=== PATIENT | male | born 1985 ===

== ENCOUNTER 2016-12-29 04:46 | Inpatient (IN) | payer OTHER ==
[2016-12-29 05:18] VITALS: BMI 23.8
--- NOTE | 2016-12-29 05:22 | ED PDOC ---
Arrival/HPI - General Time Seen by Provider: 12/29/16 05:20 Historian: Patient - History of Present Illness Narrative History of Present Illness (Text): 12/29/16 05:21 Thong Agrawal is a 31 year old male, whose past medical history includes alcohol abuse, who presents to the ED brought in by EMS accompanied by family status post seizure today. Relative states patient had a witnessed seizure at home 1 hour prior to arrival. Patient admits to drinking alcohol yesterday evening. Family note patient has had seizures in the past. Patient states he currently has a headache. Patient denies any fever, chills, chest pain, shortness of breath, abdominal pain, nausea, vomiting, diarrhea, urinary symptoms, back pain , neck pain, dizziness, vision changes, or any other complaints. Time/Duration: Other (tonight) Symptom Onset: Gradual Symptom Course: Unchanged Activities at Onset: Rest, Light Context: Home Past Medical History - Provider Review Nursing Documentation Reviewed: Yes Family/Social History - Physician Review Nursing Documentation Reviewed: Yes Family/Social History: No Known Family HX Allergies/Home Meds Allergies/Adverse Reactions: Allergies No Known Allergies Allergy (Unverified 12/29/16 05:21) Home Medications: Home Meds Medication Instructions Recorded Confirmed No Known Home Med 12/29/16 12/29/16 Review of Systems - Physician Review All systems were reviewed & negative as marked: Yes - Review of Systems Constitutional: Normal. absent: Fevers Eyes: Normal ENT: Normal Respiratory: Normal. absent: SOB, Cough Cardiovascular: Normal. absent: Chest Pain Gastrointestinal: Normal. absent: Abdominal Pain, Diarrhea, Nausea, Vomiting Genitourinary Male: Normal. absent: Dysuria, Frequency, Hematuria, Urinary Output Changes Musculoskeletal: Normal. absent: Back Pain, Neck Pain Skin: Normal. absent: Rash Neurological: Headache, Seizure. absent: Dizziness Endocrine: Normal Hemo/Lymphatic: Normal Psychiatric: Normal Physical Exam Vital Signs Reviewed: Yes Vital Signs Temp Pulse Resp BP Pulse Ox 12/29/16 08:11 103 H 18 142/66 97 12/29/16 06:35 107 H 18 138/88 97 12/29/16 06:20 104 H 18 139/66 96 12/29/16 06:05 107 H 18 144/92 H 99 12/29/16 05:50 102 H 18 140/79 98 12/29/16 04:46 98.6 F 106 H 18 151/102 H 99 Temperature: Afebrile Blood Pressure: Hypertensive Pulse: Regular Respiratory Rate: Normal Appearance: Positive for: Well-Appearing, Non-Toxic, Comfortable Pain Distress: None Mental Status: Positive for: Alert and Oriented X 3 - Systems Exam Head: Present: Atraumatic, Normocephalic Pupils: Present: PERRL Extroacular Muscles: Present: EOMI Conjunctiva: Present: Normal Mouth: Present: Moist Mucous Membranes Neck: Present: Normal Range of Motion Respiratory/Chest: Present: Clear to Auscultation, Good Air Exchange. No: Respiratory Distress, Accessory Muscle Use Cardiovascular: Present: Regular Rate and Rhythm, Normal S1, S2. No: Murmurs Abdomen: Present: Normal Bowel Sounds. No: Tenderness, Distention, Peritoneal Signs Back: Present: Normal Inspection Upper Extremity: Present: Normal Inspection. No: Cyanosis, Edema Lower Extremity: Present: Normal Inspection. No: Edema Neurological: Present: GCS=15, CN II-XII Intact, Speech Normal Skin: Present: Warm, Dry, Normal Color. 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 Plan: -- CT Head w/o contrast -- EKG -- Labs, alcohol level -- Urinalysis -- Ativan -- Reassess and disposition Progress Notes: Reviewed EKG, sinus tachycardia at [address]-segment elevations or depressions, no T-wave inversions, normal intervals. 12/31/16 19:38 case d/w dr farley from [facility] will accept case - Critical Care Critical Care Minutes: 30 minutes (management of electrolyte disorder) - Lab Interpretations Microbiology Results: Microbiology Results 12/29/16 07:14 Blood Blood Culture - Preliminary NO GROWTH AFTER 48 HOURS 12/29/16 07:00 Blood Blood Culture - Preliminary NO GROWTH AFTER 48 HOURS Lab Results: 12/29/16 05:30 12/29/16 05:30 Lab Results 12/29/16 07:14: PT 12.6 H, INR 1.17 H, APTT 28.7 12/29/16 06:30: pO2 232 H, VBG pH 7.50 H, VBG pCO2 29.0 L, VBG HCO3 22.6, VBG Total CO2 23.5, VBG O2 Sat (Calc) 99.0 H, VBG Base Excess 0.4, VBG Potassium 2.4 L*, Glucose 117 H, Lactate 8.0 H*, FiO2 21.0, Sodium 113.0 L*, Chloride 71.0 L, Venous Blood Potassium 2.4 L* 12/29/16 05:30: Hepatitis A IgM Ab Negative, Hep Bs Antigen Negative, Hep B Core IgM Ab Negative, Hepatitis C Antibody Negative 12/29/16 05:30: Procalcitonin 0.16 L 12/29/16 05:30: Serum Osmolality 240 L, TSH 3rd Generation 1.84 12/29/16 05:30: Sodium 113 L*, Potassium 2.3 L*, Chloride 67 L, Carbon Dioxide 15 L, Anion Gap 33 H, BUN 12, Creatinine 0.8, Est GFR ( Amer) > 60, Est GFR (Non-Af Amer) > 60, Random Glucose 149 H, Uric Acid 14.5 H, Calcium 7.8 L, Phosphorus 4.4, Magnesium 3.0 H, NT-Pro-B Natriuret Pep 299, Cortisol AM Sample 22.1 12/29/16 05:30: Alcohol, Quantitative < 10 12/29/16 05:30: Sodium 112 L*, Potassium 2.2 L*, Chloride 67 L*, Carbon Dioxide 14 L, Anion Gap 33 H, BUN 12, Creatinine 0.9, Est GFR ( Amer) > 60, Est GFR (Non-Af Amer) > 60, Random Glucose 152 H, Calcium 7.7 L, Total Bilirubin 1.2 , AST 143 H, ALT 101 H, Alkaline Phosphatase 85, Total Protein 8.4 H, Albumin 5.4 H, Globulin 3.0, Albumin/Globulin Ratio 1.8 12/29/16 05:30: WBC 20.7 H, RBC 4.73, Hgb 14.7, Hct 37.7 L, MCV 79.7 L, MCH 31.1 , MCHC 39.0 H, RDW 12.1, Plt Count 154, MPV 9.9, Gran % 85.8 H, Lymph % (Auto) 7.7 L, [place] % (Auto) 6.5 H, Eos % (Auto) 0.0 L, Baso % (Auto) 0.0, Gran # 17.80 H, Lymph # 1.6, [place] # 1.3 H, Eos # 0.0, Baso # 0.00 I have reviewed the lab results: Yes - RAD Interpretation Radiology Orders: 12/29/16 05:21 HEAD W/O CONTRAST [CT] Stat 12/29/16 05:56 CHEST ONE VIEW [RAD] Stat - EKG Interpretation Interpreted by ED Physician: Yes Type: 12 lead EKG - Medication Orders Current Medication Orders: Calcium Carbonate (Caltrate) 600 mg PO ONCE ONE Stop: 12/31/16 20:01 Folic Acid (Folic Acid) 1 mg PO DAILY [facility] Last Admin: 12/31/16 13:46 Dose: 1 mg Octreotide Acetate 1,250 mcg/ (Dextrose) 252.5 mls @ 5.05 mls/hr IV .Q24H JESUS; 25 MCG/HR PRN Reason: Protocol Last Admin: 12/30/16 21:04 Dose: 25 mcg/hr, 5.05 mls/hr Pantoprazole Sodium (Protonix 40mg Ivpb) 40 mg in 100 mls @ 20 mls/hr IVPB .Q5H JESUS Last Admin: 12/31/16 17:10 Dose: 20 mls/hr Levetiracetam (Keppra 500mg Ivpb) 500 mg in 100 mls @ 460 mls/hr IVPB Q12 JESUS Last Admin: 12/31/16 11:07 Dose: 460 mls/hr Dexmedetomidine HCl (Precedex 4 Mcg/Ml (100 Ml)) 400 mcg in 100 mls @ 10.319 mls/hr IV .Q9H42M PRN; Protocol; 0.7 MCG/KG/HR PRN Reason: Agitation Last Admin: 12/31/16 17:17 Dose: 0.2 mcg/kg/hr, 2.948 mls/hr Calcium Gluconate 1,000 mg/ (Dextrose) 110 mls @ 110 mls/hr IVPB DAILY JESUS Stop: 01/01/17 10:59 Last Admin: 12/31/16 18:06 Dose: 110 mls/hr Sodium Chloride (Sodium Chloride 0.45%) 1,000 mls @ 500 mls/hr IV .Q2H JESUS Stop: 12/31/16 23:00 Sodium Chloride (Sodium Chloride 0.9%) 1,000 mls @ 250 mls/hr IV .Q4H JESUS Lorazepam (Ativan) 2 mg IVP Q2H PRN; Protocol PRN Reason: Seizure activity Last Admin: 12/31/16 01:43 Dose: 2 mg Re-Assess: Reassess Psych Meds Document 12/31/16 02:13 MKN (Rec: 12/31/16 02:26 MKN [facility] [id number]) Reassess Psych Med Ineffective-LIP notifed Multivitamins/Minerals (Therapeutic-M Tab) 1 tab PO DAILY [facility] Last Admin: 12/31/16 13:45 Dose: 1 tab Thiamine HCl (Vitamin B1 Tab) 100 mg PO DAILY JESUS Thiamine HCl (Vitamin B1 Inj) 100 mg IV DAILY [facility] Last Admin: 12/31/16 11:07 Dose: 100 mg Discontinued Medications Calcium Carbonate (Caltrate) 600 mg PO ONCE ONE Stop: 12/31/16 13:35 Last Admin: 12/31/16 13:45 Dose: 600 mg Calcium Carbonate (Caltrate) 600 mg PO ONCE ONE Stop: 12/31/16 16:32 Last Admin: 12/31/16 17:06 Dose: 600 mg Desmopressin Acetate (Ddavp) 2 mcg SC ONCE ONE Stop: 12/29/16 13:46 Last Admin: 12/29/16 14:45 Dose: 2 mcg Desmopressin Acetate (Ddavp) 2 mcg SC ONCE ONE Stop: 12/31/16 07:18 Last Admin: 12/31/16 08:37 Dose: 2 mcg Folic Acid (Folic Acid) 1 mg IVP DAILY [facility] Last Admin: 12/30/16 10:24 Dose: 1 mg Gadodiamide (Omniscan No Safepak) Confirm Administered Dose 4,305 mg IV .STK- MED ONE Stop: 12/30/16 16:40 Last Admin: 12/30/16 18:01 Dose: Sodium Chloride (Hypertonic Saline 3%) 500 mls @ 30 mls/hr IV .[id number] [facility] Last Admin: 12/29/16 07:11 Dose: 30 mls/hr Potassium Chloride (Potassium Chloride 20 Meq/100 Ml) 20 meq in 100 mls @ 50 mls/hr IVPB Q2H JESUS Stop: 12/29/16 10:44 Last Admin: 12/29/16 09:16 Dose: 50 mls/hr Aztreonam (Azactam 2 Gm) 100 mls @ 100 mls/hr IVPB STAT STA PRN Reason: Protocol Stop: 12/29/16 07:53 Last Admin: 12/29/16 07:57 Dose: 100 mls/hr Vancomycin HCl (Vancomycin 1gm) 1 gm in 250 mls @ 167 mls/hr IVPB STAT STA PRN Reason: Protocol Stop: 12/29/16 08:23 Last Admin: 12/29/16 09:16 Dose: 167 mls/hr Sodium Chloride (Sodium Chloride 0.9%) 1,000 mls @ 100 mls/hr IV .Q10H JESUS Potassium Chloride 10 meq/ (Sodium Chloride) 1,005 mls @ 100 mls/hr IV .Q10H3M [facility] Last Admin: 12/29/16 09:37 Dose: 100 mls/hr Ceftriaxone Sodium (Rocephin 2 Gm Ivpb) 2 gm in 100 mls @ 100 mls/hr IVPB Q12 JESUS PRN Reason: Protocol Last Admin: 12/30/16 10:30 Dose: 100 mls/hr Sodium Chloride (Sodium Chloride 0.9%) 1,000 mls @ 999 mls/hr IV .Q1H1M STA Stop: 12/29/16 09:36 Last Admin: 12/29/16 09:16 Dose: 999 mls/hr Dextrose (Dextrose 5% In Water 1000 Ml) 1,000 mls @ 150 mls/hr IV .Q6H40M [facility] Last Admin: 12/29/16 14:00 Dose: 150 mls/hr Potassium Chloride (Potassium Chloride 20 Meq/100 Ml) 20 meq in 100 mls @ 50 mls/hr IVPB Q2H [facility] Stop: 12/29/16 18:29 Last Admin: 12/29/16 17:51 Dose: 50 mls/hr Dextrose (Dextrose 5% In Water 1000 Ml) 1,000 mls @ 200 mls/hr IV .Q5H [facility] Potassium Chloride (Potassium Chloride 20 Meq/100 Ml) 20 meq in 100 mls @ 50 mls/hr IVPB Q2H [facility] Stop: 12/29/16 21:59 Last Admin: 12/29/16 22:00 Dose: 50 mls/hr Dextrose (Dextrose 5% In Water 1000 Ml) 1,000 mls @ 250 mls/hr IV .Q4H [facility] Last Admin: 12/30/16 02:00 Dose: 250 mls/hr Potassium Phosphate 15 mmole/ (Dextrose) 255 mls @ 42.5 mls/hr IVPB ONCE ONE Stop: 12/30/16 12:46 Last Admin: 12/30/16 09:15 Dose: 42.5 mls/hr Potassium Chloride (Potassium Chloride 10 Meq/100 Ml) 10 meq in 100 mls @ 100 mls/hr IVPB Q2H [facility] Stop: 12/30/16 17:59 Last Admin: 12/30/16 17:04 Dose: 100 mls/hr Desmopressin Acetate 4 mcg/ (Sodium Chloride) 51 mls @ 100 mls/hr IV ONCE ONE Stop: 12/30/16 09:46 Last Admin: 12/30/16 10:31 Dose: 100 mls/hr Dextrose (Dextrose 5% In Water 1000 Ml) 1,000 mls @ 500 mls/hr IV .Q2H [facility] Last Admin: 12/30/16 16:04 Dose: 500 mls/hr Desmopressin Acetate 2 mcg/ (Sodium Chloride) 50.5 mls @ 100 mls/hr IV ONCE ONE Stop: 12/30/16 15:13 Last Admin: 12/30/16 16:57 Dose: 100 mls/hr Potassium Phosphate 15 mmole/ (Sodium Chloride) 255 mls @ 50 mls/hr IV .Q5H6M [facility] Last Admin: 12/31/16 05:11 Dose: 50 mls/hr Sodium Chloride (Sodium Chloride 0.9%) 1,000 mls @ 999 mls/hr IV .Q1H1M STA Stop: 12/31/16 09:26 Last Admin: 12/31/16 08:00 Dose: 999 mls/hr Sodium Chloride (Sodium Chloride 0.9%) 1,000 mls @ 999 mls/hr IV .Q[address] Stop: 12/31/16 10:39 Last Admin: 12/31/16 09:30 Dose: 999 mls/hr Comments: unable to scan bar code Sodium Chloride (Sodium Chloride 0.9%) 1,000 mls @ 999 mls/hr [facility] .[facility] Stop: 12/31/16 10:40 Last Admin: 12/31/16 11:04 Dose: 999 mls/hr Comments: bar code not accepted Sodium Chloride (Sodium Chloride 0.9%) 1,000 mls @ 150 mls/hr IV .Q6H40M [facility] Sodium Chloride (Sodium Chloride 0.9%) 1,000 mls @ 250 mls/hr IV .Q4H [facility] Last Admin: 12/31/16 13:46 Dose: 250 mls/hr Dextrose (Dextrose 5% In Water 1000 Ml) 1,000 mls @ 250 mls/hr IV .Q4H [facility] Last Admin: 12/31/16 18:07 Dose: 250 mls/hr Desmopressin Acetate 2 mcg/ (Sodium Chloride) 50.5 mls @ 100 mls/hr IV ONCE ONE Stop: 12/31/16 18:51 Last Admin: 12/31/16 18:59 Dose: 100 mls/hr Lorazepam (Ativan) 1 mg IVP STAT STA Stop: 12/29/16 05:22 Last Admin: 12/29/16 05:35 Dose: 1 mg Lorazepam (Ativan) 4 mg IVP ONCE ONE PRN Reason: Protocol Stop: 12/31/16 00:10 Last Admin: 12/31/16 00:21 Dose: 4 mg Re-Assess: Reassess Psych Meds Document 12/31/16 00:51 MKN (Rec: 12/31/16 01:[address]) Reassess Psych Med Ineffective-LIP notifed Morphine Sulfate (Morphine) 1 mg IVP STAT STA Stop: 12/30/16 21:32 Last Admin: 12/30/16 21:45 Dose: 1 mg Re-Assess: MAR Pain Assessment Document 12/30/16 22:45 MKN (Rec: 12/31/16 05:[address]) Pain Reassessment Is this a pain reassessment? Yes Sleep Is patient sleeping during reassessment? No Presence of Pain Presence of Pain No Multivitamins/Minerals (Therapeutic-M Tab) 1 tab PO DAILY [facility] Last Admin: 12/30/16 12:20 Dose: 1 tab Pneumococcal Polyvalent Vaccine (Pneumovax 23 Vaccine) 0.5 ml IM .ONCE ONE Stop: 12/29/16 15:06 Potassium Chloride (Potassium Chloride Oral Soln) 60 meq PO ONCE ONE Stop: 12/30/16 09:53 Last Admin: 12/30/16 10:20 Dose: 60 meq Potassium Chloride (Potassium Chloride Oral Soln) 20 meq PO ONCE ONE Stop: 12/31/16 17:05 Last Admin: 12/31/16 17:11 Dose: 20 meq Potassium Phos/Sodium Phos (Neutra-Phos) 2 pkt PO ONCE ONE Stop: 12/30/16 11:01 Last Admin: 12/30/16 12:20 Dose: 2 pkt Potassium Phos/Sodium Phos (Neutra-Phos) 1 pkt PO ONCE ONE Stop: 12/30/16 18:01 Last Admin: 12/30/16 17:59 Dose: 1 pkt Sodium Chloride (Sodium Chloride Tab) 2 gm PO Q8H JESUS Last Admin: 12/31/16 08:42 Dose: 2 gm Thiamine HCl (Vitamin B1 Inj) 100 mg IM DAILY JESUS Last Admin: 12/30/16 10:12 Dose: 100 mg Thiamine HCl (Vitamin B1 Inj) 100 mg IV STAT STA Stop: 12/31/16 00:10 Last Admin: 12/31/16 00:34 Dose: 100 mg - Veronica Statement The provider has reviewed the documentation as recorded by the Veronica Swartz Provider Attestation: All medical record entries made by the Veronica were at my direction and personally dictated by me. I have reviewed the chart and agree that the record accurately reflects my personal performance of the history, physical exam, medical decision making, and the department course for this patient. I have also personally directed, reviewed, and agree with the discharge instructions and disposition. Disposition/Present on Arrival - Present on Arrival Any Indicators Present on Arrival: No - Disposition Have Diagnosis and Disposition been Completed?: Yes Diagnosis: Hyponatremia, Hypokalemia Disposition: HOSPITALIZED Disposition Time: 07:20 Condition: SERIOUS
[2016-12-29 05:34] LABS: ADD MANUAL DIFF? NO
[2016-12-29 05:44] LABS: GRAN % 85.8 % (50.0-68.0); HEMATOCRIT 37.7 % (42.0-52.0); LYMPH # 1.6 (1.2-3.4); LYMPH % 7.7 % (22.0-35.0); MEAN CELL VOLUME 79.7 fL (80.0-105.0); MEAN CORPUSCULAR HEMOGLOBIN 31.1 pg (25.0-35.0); MEAN PLATELET VOLUME 9.9 fl (7.0-11.0); MONO # 1.3 (0.1-0.6); MONO % 6.5 % (1.0-6.0); PLATELET COUNT 154 10^3/uL (120.0-450.0); RED CELL DISTRIBUTION WIDTH 12.1 % (11.5-14.5)
[2016-12-29 05:54] LABS: WHITE BLOOD COUNT 20.7 10^3/ul (4.5-11.0)
[2016-12-29 06:04] LABS: ALB/GLOB RATIO 1.8 (1.1-1.8); ALKALINE PHOSPHATASE 85 U/L (38-133); ALT/SGPT 101 U/L (7-56); BILIRUBIN,TOTAL 1.2 mg/dL (0.2-1.3); BLOOD UREA NITROGEN 12 mg/dL (7-21); CALCIUM 7.7 mg/dL (8.4-10.5); CARBON DIOXIDE 14 mmol/L (21-33); GFR AFRICAN-AMERICAN > 60; GLUCOSE,RANDOM 152 mg/dL (70-110); TOTAL PROTEIN 8.4 g/dL (5.8-8.3)
[2016-12-29 06:12] LABS: AST/SGOT 143 U/L (15-59)
[2016-12-29 06:30] LABS: CHLORIDE 67 mmol/L (95-110); POTASSIUM 2.2 mmol/L (3.6-5.0); SODIUM 112 mmol/L (132-148)
[2016-12-29] MEDS ORDERED: Sodium Chloride 3% 500 ML IV SCH (06:30)
[2016-12-29 06:44] LABS: VENOUS BLOOD GAS BASE EXCESS 0.4 mmol/L (0.0-2.0)
[2016-12-29] MEDS ORDERED: Aztreonam 2 Gm in NS 100mL 100 ML IVPB STA (06:54)
[2016-12-29] MEDS ORDERED: Vancomycin 1gm in NS 250ml 1 GM/250 ML BAG IVPB STA (06:54)
--- NOTE | 2016-12-29 07:29 | CT ---
EXAM: CT Head Without Intravenous Contrast CLINICAL HISTORY: 31 years old, male; Signs and symptoms; Other: Seizure TECHNIQUE: Axial computed tomography images of the head/brain without intravenous contrast. This CT exam was performed using one or more of the following dose reduction techniques: automated exposure control, adjustment of the mA and/or kV according to patient size, and/or use of iterative reconstruction technique. EXAM DATE/TIME: 12/29/2016 5:21 AM COMPARISON: No relevant prior studies available. FINDINGS: BRAIN: Focal areas of CSF density are seen in the basal ganglia bilaterally, most compatible with bilateral old/chronic lacunar infarcts. The left-sided lacunar infarcts are larger in size, and there is associated ex vacuo dilatation of the left lateral ventricle. Diffuse, age-related cortical atrophy and ventriculomegaly. No significant acute abnormality identified. No acute hemorrhage seen within the brain. No acute extra-axial fluid collections visualized. No evidence of significant mass effect within the brain. VENTRICLES: See above. BONES/JOINTS: No acute fractures or other acute bony abnormality noted. SOFT TISSUES: No acute abnormality of the visualized soft tissues is seen. SINUSES: Visualized paranasal sinuses appear clear. MASTOID AIR CELLS: Mastoid air cells appear clear. IMPRESSION: - No acute findings seen within the brain. - Evidence of chronic ischemic changes, as described. - See above for remaining findings.
[2016-12-29] MEDS ORDERED: Sodium Chloride 0.9% 1,000 ML IV SCH (07:45)
--- NOTE | 2016-12-29 07:50 | PCM.SEPTIC ---
Sepsis Progress Note - Reassessment Type Reassessment Type: Non-invasive reassessment - Non Invasive Reassessment Were the most recent vital sign reviewed: Yes Vital Sign (Latest): Temp Pulse Resp BP Pulse Ox 98.6 F 107 H 18 138/88 97 12/29/16 04:46 12/29/16 06:35 12/29/16 06:35 12/29/16 06:35 12/29/16 06:35 Cardiovascular: Yes: Regular Rate, Rhythm Respiratory: Yes: Normal Breath Sounds Capillary Refill: Delayed Pulses: Decreased Radial, Decreased Dorsalis Pedis, Decreased Posterior Tibialis Skin: Normal Color
[2016-12-29 08:05] LABS: INR 1.17 (0.93-1.08); PARTIAL THROMBOPLASTIN TIME 28.7 Seconds (23.7-30.8)
[2016-12-29 08:06] LABS: URINE BILIRUBIN NEGATIVE (NEGATIVE); URINE BLOOD MODERATE (NEGATIVE); URINE GLUCOSE (UA) NEGATIVE (NEGATIVE); URINE KETONE NEGATIVE (NEGATIVE); URINE LEUKOCYTE ESTERASE NEGATIVE Leu/uL (NEGATIVE); URINE PROTEIN 30 mg/dL (<30 mg/dL); URINE UROBILINOGEN 0.2 E.U./dL (<1 E.U./dL)
[2016-12-29 08:11] LABS: URINE APPEARANCE SL CLOUDY (CLEAR); URINE COLOR YELLOW (YELLOW)
[2016-12-29 08:13] LABS: URINE BACTERIA FEW (NEG); URINE EPITHELIAL CELLS 0 - 2 /hpf (0-5); URINE WBC 0 - 2 /hpf (0-6)
[2016-12-29 08:14] LABS: BLOOD UREA NITROGEN 12 mg/dL (7-21); CALCIUM 7.8 mg/dL (8.4-10.5); CARBON DIOXIDE 15 mmol/L (21-33); CHLORIDE 67 mmol/L (98-107); GFR AFRICAN-AMERICAN > 60; GLUCOSE,RANDOM 149 mg/dL (70-110); PHOSPHOROUS 4.4 mg/dL (2.5-4.5); URIC ACID 14.5 mg/dL (3.5-8.5)
[2016-12-29 08:20] LABS: POTASSIUM 2.3 mmol/L (3.6-5.0); SODIUM 113 mmol/L (132-148)
[2016-12-29] MEDS ORDERED: Sodium Chloride 0.9% 1,000 ML IV STA (08:36)
[2016-12-29 08:50] LABS: THYROID STIMULATING HORMONE 1.84 mIU/mL (0.46-4.68)
[2016-12-29] MEDS: Octreotide 1,250 MCG in Dextrose 5% In Water 250 ML IV SCH (09:23)
[2016-12-29] MEDS: Pantoprazole 40mg/100ml IVPB 40 MG/100 ML BAG IVPB SCH ×3 (09:27→17:59)
[2016-12-29] MEDS: cefTRIAXone 2 GM IN NS 2 GM/100 ML BAG IVPB SCH ×2 (09:37→21:55)
--- NOTE | 2016-12-29 09:45 | CON ---
DATE: 12/29/2016 The patient seen and examined at bedside. This is a 31-year-old gentleman with history of heavy alcohol abuse who presented this time after isolated seizure that happened around midnight. The patient came around pretty fast and in the morning decided to seek medical attention in the Emergency Room at [facility]. No nausea, no diarrhea, no constipation. The patient, however , had isolated episode of hemetemesis. PAST MEDICAL HISTORY: None. SOCIAL HISTORY: The patient is a heavy smoker. No illicit drug use and no tobacco smoking. FAMILY HISTORY: Noncontributory. PAST MEDICAL HISTORY: None. REVIEW OF SYSTEMS: Review of 12-organ system, other than mentioned in history of present illness, is negative. PHYSICAL EXAMINATION: VITAL SIGNS: Heart rate 103, blood pressure 142/66, respiratory rate 18, oxygen saturation 97% on room air. HEAD AND NECK: Atraumatic. LUNGS: Clear to auscultation bilaterally. HEART: Regular rate and rhythm. S1, S2 normal. ABDOMEN: Soft, nontender, nondistended. No hepatosplenomegaly. NEUROLOGIC: No motor deficit on upper or lower extremity. The patient does not have difficulty or asymmetry in evaluating his ability to stick out tongue, shrug shoulders, raises his eyebrows. No nystagmus. SKIN: Mucosa Dry. PSYCHIATRIC: The patient is alert, awake, and oriented x 3. LABORATORY DATA: Sodium 113, potassium 2.3, chloride 67, BUN 12, creatinine 0.8. AST 143, ALT 101. ProBNP, cortisol are pending. Albumin 5.4. WBC 20.7, hemoglobin 14.7, platelet count 154. VBG shows 7.5 with lactic acid 8. The patient's alcohol less than 10. Last drink according to patient's niece consisted of vodka and beer and was early yesterday morning. Urine positive for protein, blood, RBC 2-5, sodium 61 in the urine; leukocyte esterase and nitrite are negative. Head CAT scan showed substantial microvascular changes. No acute infarct or hemorrhage. Chest x-ray: No acute pulmonary disease. ASSESSMENT AND PLAN: This is a 31-year-old gentleman without significant past medical history but with heavy alcohol abuse who presented with a seizure in the setting of severe hyponatremia. He received a bolus of hypertonic saline in the Emergency Room and his repeated BMP is pending. Meanwhile, patient appears to be hypovolemic as he has dry mucosa and skin on exam (he is known not drinking fluids or eating well over the last several days as per family members). At present time, I will proceed with supplementing potassium and isotonic crystalloids. I will proceed with BMP every 4 hours. Neurology and nephrology consult. I will avoid rapid correction of sodium and will try to avoid incremental sodium of more than 6 mEq per liter per the first 24 hours. Potassium supplementation should also help with sodium as well. The patient is afebrile, and his leukocytosis most likely represents hemoconcentration as his hemoglobin is elevated as well. Nevertheless, possibility of infection cannot be ruled out, and empiric antibiotics started along with septic workup. The patient had isolated episode of hemetemesis. As patient is a heavy drinker, his LFTs are elevated. Octreotide and Protonix drip started, and Dr. Rm from GI service will be consulted to consider gastroscopy. Microvascular changes is a 31-year-old gentleman are concerning for accelerated arthrosclerosis. I will proceed with echocardiogram at present time. ProBNP to rule out congestive heart failure syndrome will also be ordered. Urine osmolarity, urine sodium, plasma osmolarity I also ordered and pending. TSH, cortisol level, hepatitis profile are also pending as well. Will proceed with abdominal ultrasound. The patient will be admitted to ICU to slowly correct severe hyponatremia. Will continue to target euvolemia, euglycemia, normothermia and oxygen saturation more than 90%. Will continue with DVT and GI prophylaxis. Will get urine sodium and osm, plasma osm Addendum: repeated Na 121. Stopped NS, started D5W at 150/hr and gave 2 mcg Desmopressin SC. 4 hrs later na still 121, increased D5W up to 250 cc/hr, will follow with serial BMP. will let nephro service know ccm time 40 min Lexx Catalan MD cc: [id number] TT: 12/29/2016 09:27:18 Confirmation # [id number] Dictation # [id number] mn 12/29/2016 08:44:45 GALLITO
[2016-12-29 10:16] LABS: ADD MANUAL DIFF? NO
--- NOTE | 2016-12-29 10:24 | CP.PCM.HP ---
<Serafin Tineo - Last Filed: 12/29/16 22:31> History of Present Illness - History of Present Illness History of Present Illness: 31 year old Andorran speaking male with pmh of alcohol abuse and seizures. Pt's niece was at bedside and able to translate. Pt. lives with family and found around 3:30am laying in bed actively seizing after drinking 6 cans of beer around 11:30pm. Pt. was foaming at the mouth, biting his tongue and had urinary incontinence. Pt. does not remember the episode, but does remember vomiting before it happened. EMS was called and pt. was transported to the hospital accompanied by his family. Pt. admits to drinking about 750ml of tequila and 12 cans of beer daily. Pt. stated he only has seizures when he drinks and that he has a seizure about once every 2 years, with his first seizure 7 years ago. Family has tried to intervene and help him stop drinking, but has not been able to help the situation. Pt. needs to drink in the morning to wake up and in the evening to go to sleep. Pt. complains of headaches, dizziness, blurry vision, dark and bright bloody emesis, chest pain when he vomits and sore throat. He only has these symptoms when he drinks. He denies changes in hearing, abdominal pain, any GI/ symptoms with last BM last night, any back pain, or N/T in extremities. Code Sepsis was called on this pt. due to presentation and lactic acid of 8. 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 absent: Chills, Fever - EENT Eyes: Blurred Vision, Change in Vision Ears: Dizziness. absent: Decreased Hearing Nose/Mouth/Throat: Epistaxis, Mouth Lesions, Sore Throat. absent: Neck Pain - Cardiovascular Cardiovascular: Chest Pain (while vomiting), Palpitations. absent: Dyspnea, Irregular Heart Rhythm, Leg Edema, Leg Ulcers - Respiratory Respiratory: absent: Dyspnea, Hemoptysis - Gastrointestinal Gastrointestinal: Hematemesis. absent: Loose Stools - Genitourinary Genitourinary: Urinary Incontinence. absent: Dysuria, Flank Pain, Pyuria - Musculoskeletal Musculoskeletal: absent: Back Pain, Joint Swelling, Muscle Weakness, Neck Pain - Integumentary Integumentary: absent: Change in Hair, Dry Skin, Rash, Skin Pain, Sores - Neurological Neurological: Dizziness, Headaches. absent: Numbness, Loss of Vision, Tingling , Weakness - Endocrine Endocrine: absent: Cold Intolorance, Heat Intolorance, Palpitations, Polydipsia , Polyphagia, Polyuria Past Patient History - Past Social History Smoking Status: Never Smoked Alcohol: > 2 Drinks/Day Drugs: Denies Home Situation {Lives}: With Family - CARDIAC Hx Cardiac Disorders: No - PULMONARY Hx Respiratory Disorders: No - NEUROLOGICAL Hx Neurological Disorder: Yes Hx Seizures: Yes (likely alcohol related) - HEENT Hx HEENT Problems: No - RENAL Hx Chronic Kidney Disease: No - ENDOCRINE/METABOLIC Hx Endocrine Disorders: No - HEMATOLOGICAL/ONCOLOGICAL Hx Blood Disorders: No - INTEGUMENTARY Hx Dermatological Problems: No - MUSCULOSKELETAL/RHEUMATOLOGICAL Hx Musculoskeletal Disorders: No - GASTROINTESTINAL Hx Gastrointestinal Disorders: No - PSYCHIATRIC Hx Substance Use: No - SURGICAL HISTORY Hx Surgeries: No Meds Allergies/Adverse Reactions: Allergies Allergy/AdvReac Type Severity Reaction Status Date / Time No Known Allergies Allergy Unverified 12/29/16 05:21 Physical Exam - Constitutional Appears: Toxic, In Acute Distress - Head Exam Head Exam: ATRAUMATIC, NORMOCEPHALIC - Eye Exam Eye Exam: EOMI, PERRL Pupil Exam: NORMAL ACCOMODATION, PERRL - ENT Exam ENT Exam: Mucous Membranes Moist - Neck Exam Neck exam: Positive for: Full Rom. Negative for: Lymphadenopathy, Thyromegaly - Respiratory Exam Respiratory Exam: Clear to Auscultation Bilateral, NORMAL BREATHING PATTERN. absent: Rhonchi, Wheezes - Cardiovascular Exam Cardiovascular Exam: REGULAR RHYTHM, RRR, +S1, +S2. absent: JVD - GI/Abdominal Exam GI & Abdominal Exam: Normal Bowel Sounds, Soft. absent: Organomegaly, Rebound, Rigid, Tenderness - Extremities Exam Extremities exam: Positive for: full ROM, pedal pulses present. Negative for: joint swelling, pedal edema, tenderness - Back Exam Back exam: NORMAL INSPECTION. absent: CVA tenderness (L), CVA tenderness (R), paraspinal tenderness, rash noted, tenderness - Neurological Exam Neurological exam: Alert, CN II-XII Intact, Oriented x3 - Psychiatric Exam Psychiatric exam: Normal Affect, Normal Mood - Skin Skin Exam: Dry, Intact, Normal Color, Warm Results - Vital Signs Recent Vital Signs: Last Vital Signs Temp 98.6 F 12/29/16 04:46 Pulse 103 H 12/29/16 08:11 Resp 18 12/29/16 08:11 BP 142/66 12/29/16 08:11 Pulse Ox 97 12/29/16 08:11 - Labs Result Diagrams: 12/29/16 16:12 12/29/16 16:12 Labs: Laboratory Results - last 24 hr 12/29/16 12/29/16 12/29/16 08:02 08:02 08:02 Urine Color Yellow Urine Appearance Sl cloudy Urine pH 6.0 Ur Specific [place] >= 1.030 Urine Protein 30 H Urine Glucose (UA) Negative Urine Ketones Negative Urine Blood Moderate H Urine Nitrate Negative Urine Bilirubin Negative Urine Urobilinogen 0.2 Ur Leukocyte Esterase Negative Urine RBC 2 - 5 Urine WBC 0 - 2 Ur Epithelial Cells 0 - 2 Urine Bacteria Few Ur Random Sodium 61 Urine Opiates Screen Negative Urine Methadone Screen Negative Ur Barbiturates Screen Negative Ur Phencyclidine Scrn Negative Ur Amphetamines Screen Negative U Benzodiazepines Scrn Negative U Oth Cocaine Metabols Negative U Cannabinoids Screen Negative Assessment & Plan - Assessment and Plan (Free Text) Assessment: 31M presents to ED s/p siezure likely 2/2 to alcohol abuse. Plan: Alcohol Abuse/Withdrawal admit to ICU IV fluids, banana bag CBC/CMP VBG Septic Shock CBC- leukocytosis Blood culture Urine culture MRSA screen VBG - respiratory alkalosis Aztreonam ID Consult - Dr. Clarke, appreciate recs HIV Hep Panel Seizures Keppra 500mg q12 Neuro Consult - Dr. Ashok Ruffin, appreciate recs GI Bleed Protonix GI Consult Dr. Rm, appreciate recs Electrolyte Abnormalities Renal Consult Dr. Chirinos PPX HIV UDS - Date & Time Date: 12/29/16 Time: 10:45 <Ayala Tovar B - Last Filed: 01/01/17 12:01> Results - Vital Signs Recent Vital Signs: Last Vital Signs Temp 97.5 F L 12/30/16 16:00 Pulse 79 12/30/16 16:00 Resp 15 12/30/16 16:00 BP 145/90 12/30/16 16:00 Pulse Ox 100 12/30/16 16:00 - Labs Result Diagrams: 01/01/17 05:30 01/01/17 05:30 Labs: Laboratory Results - last 24 hr 12/29/16 12/29/16 12/29/16 08:00 15:00 15:00 WBC RBC Hgb Hct MCV MCH MCHC RDW Plt Count MPV Gran % Lymph % (Auto) Cooper % (Auto) Eos % (Auto) Baso % (Auto) Gran # Lymph # Cooper # Eos # Baso # pO2 VBG pH VBG pCO2 VBG HCO3 VBG Total CO2 VBG O2 Sat (Calc) VBG Base Excess VBG Potassium Glucose Lactate FiO2 Sodium Potassium Chloride Carbon Dioxide Anion Gap BUN Creatinine Est GFR ( Amer) Est GFR (Non-Af Amer) Random Glucose Calcium Phosphorus Magnesium Total Bilirubin AST ALT Alkaline Phosphatase Total Protein Albumin Globulin Albumin/Globulin Ratio Venous Blood Potassium Urine Osmolality 339 Ur Random Sodium 76 HIV 1&2 Ag/Ab, 4th Gen Nonreactive 12/29/16 12/29/16 12/30/16 19:56 19:56 00:45 WBC 10.0 RBC 3.62 Hgb 11.0 L Hct 29.3 L MCV 80.9 MCH 30.4 MCHC 37.5 H RDW 12.4 Plt Count 106 L MPV 10.0 Gran % Lymph % (Auto) Cooper % (Auto) Eos % (Auto) Baso % (Auto) Gran # Lymph # Cooper # Eos # Baso # pO2 VBG pH VBG pCO2 VBG HCO3 VBG Total CO2 VBG O2 Sat (Calc) VBG Base Excess VBG Potassium Glucose Lactate FiO2 Sodium 118 L* 122 L Potassium 2.8 L* 3.0 L Chloride 87 L 90 L Carbon Dioxide 20 L 22 Anion Gap 14 13 BUN 6 L 4 L Creatinine 0.6 0.6 Est GFR ( Amer) > 60 > 60 Est GFR (Non-Af Amer) > 60 > 60 Random Glucose 145 H 142 H Calcium 6.3 L* 6.6 L* Phosphorus Magnesium Total Bilirubin AST ALT Alkaline Phosphatase Total Protein Albumin Globulin Albumin/Globulin Ratio Venous Blood Potassium Urine Osmolality Ur Random Sodium HIV 1&2 Ag/Ab, 4th Gen 12/30/16 12/30/16 12/30/16 00:45 06:11 06:11 WBC 8.3 RBC 3.69 Hgb 11.2 L Hct 29.9 L MCV 81.0 MCH 30.4 MCHC 37.5 H RDW 12.6 Plt Count 114 L MPV 9.8 Gran % 65.0 Lymph % (Auto) 27.2 Cooper % (Auto) 7.0 H Eos % (Auto) 0.7 L Baso % (Auto) 0.1 Gran # 5.36 Lymph # 2.2 Cooper # 0.6 Eos # 0.1 Baso # 0.01 pO2 33 VBG pH 7.36 VBG pCO2 40.0 VBG HCO3 22.6 VBG Total CO2 23.8 VBG O2 Sat (Calc) 67.4 H VBG Base Excess -2.7 L VBG Potassium 3.0 L Glucose 152 H Lactate 4.4 H* FiO2 21.0 Sodium 125.0 L 127 L Potassium 2.6 L* Chloride 92.0 L 91 L Carbon Dioxide 26 Anion Gap 13 BUN 2 L Creatinine 0.6 Est GFR ( Amer) > 60 Est GFR (Non-Af Amer) > 60 Random Glucose 133 H Calcium 7.4 L Phosphorus 0.9 L* Magnesium 2.4 H Total Bilirubin 0.9 AST 224 H ALT 82 H Alkaline Phosphatase 65 Total Protein 6.5 Albumin 3.8 Globulin 2.7 Albumin/Globulin Ratio 1.4 Venous Blood Potassium 3.0 L Urine Osmolality Ur Random Sodium HIV 1&2 Ag/Ab, 4th Gen 12/30/16 12/30/16 12/30/16 11:40 12:40 15:15 WBC RBC Hgb Hct MCV MCH MCHC RDW Plt Count MPV Gran % Lymph % (Auto) Cooper % (Auto) Eos % (Auto) Baso % (Auto) Gran # Lymph # Cooper # Eos # Baso # pO2 VBG pH VBG pCO2 VBG HCO3 VBG Total CO2 VBG O2 Sat (Calc) VBG Base Excess VBG Potassium Glucose Lactate FiO2 Sodium 129 L 121 L Potassium 3.6 3.5 L Chloride 96 89 L Carbon Dioxide 19 L 22 Anion Gap 18 14 BUN < 2 L < 2 L Creatinine 0.6 0.5 Est GFR ( Amer) > 60 > 60 Est GFR (Non-Af Amer) > 60 > 60 Random Glucose 109 119 H Calcium 7.5 L 7.0 L Phosphorus Magnesium Total Bilirubin AST ALT Alkaline Phosphatase Total Protein Albumin Globulin Albumin/Globulin Ratio Venous Blood Potassium Urine Osmolality 256 Ur Random Sodium 82 HIV 1&2 Ag/Ab, 4th Gen 12/30/16 15:15 WBC 9.0 RBC 3.68 Hgb 11.1 L Hct 30.2 L MCV 82.1 MCH 30.2 MCHC 36.8 RDW 12.7 Plt Count 116 L MPV 9.8 Gran % 63.6 Lymph % (Auto) 29.2 Cooper % (Auto) 6.2 H Eos % (Auto) 0.9 L Baso % (Auto) 0.1 Gran # 5.72 Lymph # 2.6 Cooper # 0.6 Eos # 0.1 Baso # 0.01 pO2 VBG pH VBG pCO2 VBG HCO3 VBG Total CO2 VBG O2 Sat (Calc) VBG Base Excess VBG Potassium Glucose Lactate FiO2 Sodium Potassium Chloride Carbon Dioxide Anion Gap BUN Creatinine Est GFR ( Amer) Est GFR (Non-Af Amer) Random Glucose Calcium Phosphorus Magnesium Total Bilirubin AST ALT Alkaline Phosphatase Total Protein Albumin Globulin Albumin/Globulin Ratio Venous Blood Potassium Urine Osmolality Ur Random Sodium HIV 1&2 Ag/Ab, 4th Gen Attending/Attestation - Attestation I have personally seen and examined this patient.: Yes I have fully participated in the care of the patient.: Yes I have reviewed all pertinent clinical information: Yes Notes (Text): I have seen and examined patient at bedside. Agree with the above note with the following additions/ exceptions: This is 31 year old [place] speaking male with history of alcohol abuse, history of having seizures x6 who was brought in ED for evaluation of seizure, headache, dizziness, bloody vomiting and sorethroat. Upon admission he was found to be in septic shock and was admitted to ICU. He also had hematemesis , hyponatremia, hypochloremia and was going thru mild alcohol withdrawal syndrome. CXR normal. Start empiric antibiotics (vanco and rocephin). All cultures pending. Procal pending. Will consult ID CT head showed .Will order EEG, MRI brain and neuro consult. For hyponatremia, will order urine sodium, serum/urine osmolarity, TSH, lipid panel and uric acid. 3% hypertonic saline was started. Will consult Nephro. He was made npo for hematemesis and started potonix and octreotide drips. LFTs are elevated. Will check hepatitis and HIV.Will consult GI. Dr Ayala Tovar
[2016-12-29 10:27] LABS: GRAN # 12.46 (1.4-6.5); GRAN % 87.1 % (50.0-68.0); HEMATOCRIT 30.7 % (42.0-52.0); LYMPH # 0.7 (1.2-3.4); LYMPH % 4.6 % (22.0-35.0); MEAN CELL VOLUME 79.7 fL (80.0-105.0); MEAN CORPUSCULAR HEMOGLOBIN 30.4 pg (25.0-35.0); MEAN CORPUSCULAR HGB CONC 38.1 g/dl (31.0-37.0); MEAN PLATELET VOLUME 9.1 fl (7.0-11.0); MONO # 1.2 (0.1-0.6); MONO % 8.3 % (1.0-6.0); PLATELET COUNT 108 10^3/uL (120.0-450.0); RED CELL DISTRIBUTION WIDTH 12.3 % (11.5-14.5); WHITE BLOOD COUNT 14.3 10^3/ul (4.5-11.0)
--- NOTE | 2016-12-29 10:58 | RAD ---
PROCEDURE: CHEST RADIOGRAPH, 1 VIEW HISTORY: pain COMPARISON: None available. FINDINGS: LUNGS: Clear. PLEURA: No pneumothorax or pleural fluid seen. CARDIOVASCULAR: Normal. OSSEOUS STRUCTURES: No significant abnormalities. VISUALIZED UPPER ABDOMEN: Normal. OTHER FINDINGS: None. IMPRESSION: No active disease.
--- NOTE | 2016-12-29 11:04 | CARD ---
APPROVED REPORT EKG Measurement Heart [id number] <Conclusion> Sinus tachycardia Otherwise normal ECG
--- NOTE | 2016-12-29 11:05 | CON ---
DATE: 12/29/2016 REQUESTING PHYSICIAN: Dr. Catalan REASON FOR CONSULTATION: I have been asked to see this 31-year-old alcoholic who comes to the hospit hi with seizure activity. The patient apparently vomited bright red blood x 1. He currently admits to some mild diffuse abdominal pain. He denies any chest pain or palpitations, fevers or chills. PAST MEDICAL HISTORY: Unremarkable. SOCIAL HISTORY: He smokes between 1-2 packs of cigarettes per day. He has a longstanding history of alcohol abuse. FAMILY HISTORY: Noncontributory. REVIEW OF SYSTEMS: A 14-point is notable for seizures and hematemesis. PHYSICAL EXAMINATION: GENERAL: A young male, lying in bed, no acute distress. VITAL SIGNS: Reveal afebrile, blood pressure 142/66, heart rate of 103. HEENT: Reveals sclerae to be white, conjunctivae pink. NECK: Supple. CHEST: Lungs are clear. HEART: Reveals regular rate and rhythm. ABDOMEN: Soft, nontender. EXTREMITIES: Show no edema. LABORATORY DATA: Reveal white blood cell count 20.7, hemoglobin 14.7. Electrolytes show sodium 113, potassium 2.3, chloride is 67, bicarb of 15, AST 143, ALT 101. IMPRESSION: A 31-year-old male alcoholic with seizures, hematemesis, severe electrolyte abnormalitie s including a sodium of 113, potassium of 2.3, chloride of 67 and bicarb of 15. The GI consult was r equested for 1 episode of hematemesis. His hemoglobin is normal. Clinically, the patient does not a ppear to be cirrhotic, although he has a history of longstanding alcohol use. Hematemesis may be fro m alcoholic gastritis. RECOMMENDATIONS: 1. Correct hyponatremia and hypokalemia. 2. Follow serial hematocrits. 3. N.p.o. 4. Continue IV PPI. Mauricio Rm MD cc: [id number] TT: 12/29/2016 11:04:57 Confirmation # [id number] Dictation # [id number] en
[2016-12-29 11:50] LABS: VENOUS BLOOD GAS BASE EXCESS -3.2 mmol/L (0.0-2.0); VENOUS BLOOD PH 7.46 (7.32-7.43)
[2016-12-29 11:57] LABS: BLOOD UREA NITROGEN 9 mg/dL (7-21); CARBON DIOXIDE 19 mmol/L (21-33); CHLORIDE 89 mmol/L (98-107); GFR AFRICAN-AMERICAN > 60; GLUCOSE,RANDOM 123 mg/dL (70-110); SODIUM 121 mmol/L (132-148)
[2016-12-29 12:37] LABS: CALCIUM 6.2 mg/dL (8.4-10.5); POTASSIUM 2.4 mmol/L (3.6-5.0)
[2016-12-29] MEDS ORDERED: Desmopressin 4 mcg/ml Inj (1 ml) SC ONE (13:45)
[2016-12-29] MEDS ORDERED: Pneumococcal 23-Valent Vaccine IM ONE (15:05)
--- NOTE | 2016-12-29 16:04 | CON ---
DATE: 12/29/2016 HISTORY OF PRESENT ILLNESS: A 31-year-old male with past medical history of alcohol abuse, presented to ED after reportedly having a witnessed seizure at home 1 hour prior to arrival, found to have ser um sodium of 112. Nephrology service being consulted for severe hyponatremia. The patient reports persistent vomiting multiple times a day for the last 4 days. Reports that his o nly p.o. intake was beer during this period, which he continued to consume despite the vomiting. The patient reports that on the day of presentation, he had blood in his vomitus, copious amounts, as we ll as epistaxis. The patient otherwise denies any change in his urinary habits. Denies any change i n urinary color or any decrease in urinary frequency. Reports drinking about 6 beers a day, but says he only does so intermittently. The patient denies any diarrhea. PAST MEDICAL HISTORY: Alcohol abuse, reports having last seizure about 10 years ago. SOCIAL HISTORY: Alcohol abuse. Denies cigarette smoking. FAMILY HISTORY: Denies any medical problems in the family. REVIEW OF SYSTEMS: CONSTITUTIONAL: Denies any fevers or chills. HEENT: Denies any sore throat, cold-like symptoms or difficulty swallowing. RESPIRATORY: Denies any shortness of breath. CARDIOVASCULAR: Denies any chest pain or swelling in legs. GASTROINTESTINAL: As mentioned in HPI. GENITOURINARY: As mentioned in HPI. MUSCULOSKELETAL: Denies any aches or pains. SKIN: Denies any itching or rashes. HEMATOLOGIC: Epistaxis and hematemesis as mentioned above. PSYCHIATRIC: Denies any depression or anxiety. NEUROLOGIC: Reportedly has headaches. PHYSICAL EXAMINATION: VITAL SIGNS: On presentation, blood pressure 151/102, heart rate 106, respirations 18, temperature 9 8.6, O2 sat 99% on room air. GENERAL: No distress, conversing coherently in full sentences. HEENT: Moist mucous membranes, nonicteric. RESPIRATORY: Lungs clear to auscultation bilaterally, no rales, no rhonchi, no wheezes. HEART: S1, S2 normal, no murmurs, no gallops, no rubs. GASTROINTESTINAL: Abdomen mildly distended, nontender. GENITOURINARY: No bladder tenderness, no bladder distention. EXTREMITIES: No lower leg edema. SKIN: Warm to touch. No cyanosis. NEUROLOGIC: Alert and oriented. PSYCHIATRIC: Normal mood, normal affect. LABORATORY DATA: On presentation, serum sodium 112, potassium 2.2, chloride 67, bicarb 14, BUN 12, c reatinine 0.9, glucose 152, calcium 7.7, AST 143, ALT 101, albumin 5.4. CBC: Hemoglobin 14.7, hemat ocrit 37.7, platelets 154. Coags: INR 1.17, PTT 28.7. Blood gas on arrival, pH 7.50, pCO2 29, pO2 of 232. Lactate 8.0. Urine osmolality this morning 695. Urine sodium 61. ASSESSMENT: 1. Hypotonic hyponatremia, severe, likely secondary to volume depletion with inadequate solute intak e in the setting of vomiting and consuming only alcoholic beverages over the last few days. High uri ne osmolality in the setting of hyponatremia is inappropriate and is consistent with volume depletion being put in status for release of ADH. The patient appropriately placed on isotonic fluids for vol ume replenishment. However, with this comes a high risk of serum sodium rising too quickly, as once the volume deficit, if corrected, urine osmolality will drop precipitously. Recommended rise in seru m sodium over 24 hours should be no more than 6-8 mEq per liter. If serum sodium rises faster than t his, will need to lower it acutely using D5W and desmopressin. Check BMP q. 4 hours as being done. Monitor urine osmolality frequently. 2. Hypokalemia, severe, consistent with patient's history of profuse vomiting. Need to replenish po tassium aggressively with the caveat that correcting hypokalemia will cause increase in serum sodium which is all the more reason to be cautious in correcting hyponatremia. 3. Acid base disturbance. The patient with metabolic alkalosis secondary to profuse vomiting along with superimposed increased anion gap, metabolic acidosis, due to lactic acidosis. Alkalosis will i mprove with correction of volume deficit as well as correction of hypokalemia. 4. Lactic acidosis, possibly secondary to seizure, but agree with empiric antibiotics for possible s epsis. 5. Alcohol abuse is an additional risk factor for developing osmotic demyelination in hyponatremic p atient, alcohol level less than 10 on presentation which indicates that patient may begin to withdraw . If signs of withdrawal, recommend to start benzodiazepine taper. Critical care time spent in reviewing patient's history and labs, interviewing patient and discussion with critical care team, 35 minutes. Jhoan Candis MORIN cc: [id number] TT: 12/29/2016 15:58:45 Confirmation # [id number] Dictation # [id number] rn
[2016-12-29 16:24] LABS: HEMATOCRIT 29.8 % (42.0-52.0); MEAN CELL VOLUME 80.8 fL (80.0-105.0); MEAN CORPUSCULAR HEMOGLOBIN 31.2 pg (25.0-35.0); MEAN CORPUSCULAR HGB CONC 38.6 g/dl (31.0-37.0); MEAN PLATELET VOLUME 9.7 fl (7.0-11.0); RED CELL DISTRIBUTION WIDTH 12.4 % (11.5-14.5); WHITE BLOOD COUNT 9.9 10^3/ul (4.5-11.0)
[2016-12-29 16:25] LABS: VENOUS BLOOD GAS BASE EXCESS -4.5 mmol/L (0.0-2.0); VENOUS BLOOD PH 7.37 (7.32-7.43)
[2016-12-29 16:26] LABS: BLOOD UREA NITROGEN 8 mg/dL (7-21); CARBON DIOXIDE 19 mmol/L (21-33); CHLORIDE 89 mmol/L (98-107); GFR AFRICAN-AMERICAN > 60; GLUCOSE,RANDOM 142 mg/dL (70-110); SODIUM 121 mmol/L (132-148)
[2016-12-29 16:36] LABS: CALCIUM 6.4 mg/dL (8.4-10.5); POTASSIUM 2.6 mmol/L (3.6-5.0)
[2016-12-29 18:20] LABS: CORTISOL AM 22.1 ug/dL (4.46-22.7)
[2016-12-29 20:20] LABS: BLOOD UREA NITROGEN 6 mg/dL (7-21); CARBON DIOXIDE 20 mmol/L (21-33); CHLORIDE 87 mmol/L (98-107); GFR AFRICAN-AMERICAN > 60; GLUCOSE,RANDOM 145 mg/dL (70-110)
[2016-12-29 20:25] LABS: CALCIUM 6.3 mg/dL (8.4-10.5); POTASSIUM 2.8 mmol/L (3.6-5.0); SODIUM 118 mmol/L (132-148)
[2016-12-29 20:30] LABS: HEMATOCRIT 29.3 % (42.0-52.0); MEAN CELL VOLUME 80.9 fL (80.0-105.0); MEAN CORPUSCULAR HEMOGLOBIN 30.4 pg (25.0-35.0); MEAN CORPUSCULAR HGB CONC 37.5 g/dl (31.0-37.0); RED CELL DISTRIBUTION WIDTH 12.4 % (11.5-14.5)
--- NOTE | 2016-12-29 21:50 | CP.PCM.CON ---
History of Present Illness - History of Present Illness History of Present Illness: 31 year old male with PMH of alcohol abuse was brought in to [facility] because of a witnessed seizure by family members. The patient is awake and alert after the seizure. The patient has some headache but no dizziness, no lightheadedness, denies fever or chills, no cough or colds, no sore throat, no photophobia, no dysphagia, no chest pain, no SOB, no abdominal pain, no diarrhea , no dysuria. In the ED, the patient was noted to have leukocytosis and Infectious Diseases consult is requested to further evaluate and manage. Review of Systems - Review of Systems All systems: reviewed and no additional remarkable complaints except (as per HPI ) Past Patient History - Past Social History Smoking Status: Never Smoked - PSYCHIATRIC Hx Substance Use: No - SURGICAL HISTORY Hx Surgeries: No Meds Allergies/Adverse Reactions: Allergies Allergy/AdvReac Type Severity Reaction Status Date / Time No Known Allergies Allergy Unverified 12/29/16 05:21 - Medications Medications: Current Medications Potassium Chloride (Potassium Chloride 20 Meq/100 Ml) 20 meq in 100 mls @ 50 mls/hr IVPB Q2H JESUS Stop: 12/29/16 10:44 Last Admin: 12/29/16 07:47 Dose: 50 mls/hr Vancomycin HCl (Vancomycin 1gm) 1 gm in 250 mls @ 167 mls/hr IVPB STAT STA PRN Reason: Protocol Stop: 12/29/16 08:23 Potassium Chloride 10 meq/ (Sodium Chloride) 1,005 mls @ 100 mls/hr IV .Q10H3M JESUS Physical Exam - Constitutional Appears: Non-toxic, No Acute Distress - Head Exam Head Exam: NORMAL INSPECTION - ENT Exam ENT Exam: Mucous Membranes Moist - Neck Exam Neck exam: Negative for: Lymphadenopathy, Meningismus - Respiratory Exam Respiratory Exam: Decreased Breath Sounds - Cardiovascular Exam Cardiovascular Exam: +S1, +S2 - GI/Abdominal Exam GI & Abdominal Exam: Soft. absent: Tenderness Results - Vital Signs Recent Vital Signs: Last Vital Signs Temp 98.6 F 12/29/16 04:46 Pulse 103 H 12/29/16 08:11 Resp 18 12/29/16 08:11 BP 142/66 12/29/16 08:11 Pulse Ox 97 12/29/16 08:11 - Labs Result Diagrams: 12/29/16 19:56 12/29/16 19:56 Labs: Laboratory Results - last 24 hr 12/29/16 08:02 Urine Color Yellow Urine Appearance Sl cloudy Urine pH 6.0 Ur Specific [place] >= 1.030 Urine Protein 30 H Urine Glucose (UA) Negative Urine Ketones Negative Urine Blood Moderate H Urine Nitrate Negative Urine Bilirubin Negative Urine Urobilinogen 0.2 Ur Leukocyte Esterase Negative Urine RBC 2 - 5 Urine WBC 0 - 2 Ur Epithelial Cells 0 - 2 Urine Bacteria Few Assessment & Plan - Assessment and Plan (Free Text) Plan: Assessment Systemic Inflammatory Response Syndrome, consider reactive due to acute stressful event from seizure episode in a patient with hyponatremia and hypochloremia probably from dehydration, R/O sepsis alcohol abuse Plan Started patient on Vancomycin and Rocephin pending blood and urine cx, PCT; reviewed CXR which is normal Will monitor clinically; discussed with Dr. Catalan
[2016-12-29] MEDS: levETIRAcetam 500mg IVPB 500 MG/100 ML BAG IVPB SCH (21:56)
[2016-12-30 01:05] LABS: VENOUS BLOOD GAS BASE EXCESS -2.7 mmol/L (0.0-2.0); VENOUS BLOOD PH 7.36 (7.32-7.43)
[2016-12-30 01:12] LABS: BLOOD UREA NITROGEN 4 mg/dL (7-21); CARBON DIOXIDE 22 mmol/L (21-33); CHLORIDE 90 mmol/L (95-110); GFR AFRICAN-AMERICAN > 60; GLUCOSE,RANDOM 142 mg/dL (70-110); SODIUM 122 mmol/L (132-148)
[2016-12-30 01:13] LABS: CALCIUM 6.6 mg/dL (8.4-10.5)
--- NOTE | 2016-12-30 02:33 | CON ---
DATE: 12/29/2016 HISTORY OF PRESENT ILLNESS: A 31-year-old male with a past medical history of alcohol abuse , presented with seizure and came to hospital, no tongue bite, no urinary incontinence. PAST MEDICAL HISTORY: Alcohol abuse. SOCIAL HISTORY: He is a heavy smoker and drinks heavily. REVIEW OF SYSTEMS: A 10-point review of systems was negative. PHYSICAL EXAMINATION: VITAL SIGNS: Blood pressure 142/66. HEENT: Normocephalic, atraumatic. NECK: Supple. NEUROLOGIC: Alert, awake, oriented x 3. No aphasia. Cranial nerves II through XII were tested. Pu pils reactive. Cerebellar, gait deferred. LABORATORY DATA: Sodium 113, potassium 2.3, chloride 67, BUN 12, creatinine 0.8, AST 143, ALT 101. Last drink had beer and vodka yesterday. CAT scan of the head, no acute infarct or bleed. IMPRESSION: A 31-year-old male with heavy alcohol abuse, presented here with severe hyponat remia and possibly seizure secondary to hyponatremia. CAT scan of the head was negative. PLAN: Continue present management. We will follow up. Raffi Ruffin MD cc: [id number] TT: 12/30/2016 02:33:01 Confirmation # [id number] Dictation # [id number] an
[2016-12-30 06:13] LABS: ADD MANUAL DIFF? NO
[2016-12-30 06:17] LABS: BASO # 0.01 K/mm3 (0.0-2.0); BASO % 0.1 % (0.0-3.0); EOS # 0.1 (0.0-0.7); EOS % 0.7 % (1.5-5.0); GRAN # 5.36 (1.4-6.5); HEMATOCRIT 29.9 % (42.0-52.0); LYMPH # 2.2 (1.2-3.4); LYMPH % 27.2 % (22.0-35.0); MEAN CORPUSCULAR HEMOGLOBIN 30.4 pg (25.0-35.0); MEAN CORPUSCULAR HGB CONC 37.5 g/dl (31.0-37.0); MEAN PLATELET VOLUME 9.8 fl (7.0-11.0); MONO # 0.6 (0.1-0.6); PLATELET COUNT 114 10^3/uL (120.0-450.0); RED CELL DISTRIBUTION WIDTH 12.6 % (11.5-14.5); WHITE BLOOD COUNT 8.3 10^3/ul (4.5-11.0)
[2016-12-30 06:37] LABS: ALB/GLOB RATIO 1.4 (1.1-1.8); ALKALINE PHOSPHATASE 65 U/L (38-133); ALT/SGPT 82 U/L (7-56); AST/SGOT 224 U/L (15-59); BILIRUBIN,TOTAL 0.9 mg/dL (0.2-1.3); BLOOD UREA NITROGEN 2 mg/dL (7-21); CALCIUM 7.4 mg/dL (8.4-10.5); CARBON DIOXIDE 26 mmol/L (21-33); CHLORIDE 91 mmol/L (98-107); GFR AFRICAN-AMERICAN > 60; GLUCOSE,RANDOM 133 mg/dL (70-110); MAGNESIUM 2.4 mg/dL (1.7-2.2); SODIUM 127 mmol/L (132-148); TOTAL PROTEIN 6.5 g/dL (5.8-8.3)
[2016-12-30 06:42] LABS: PHOSPHOROUS 0.9 mg/dL (2.5-4.5); POTASSIUM 2.6 mmol/L (3.6-5.0)
[2016-12-30] MEDS ORDERED: Potassium Phosphate 15 MMOLE in Dextrose 5% In Water 250 ML IVPB ONE (06:47)
--- NOTE | 2016-12-30 07:09 | US ---
HISTORY: liver cirrhosis COMPARISON: None. TECHNIQUE: Sonographic evaluation of the abdomen. FINDINGS: LIVER: Liver demonstrates increased echogenicity, likely representing hepatic parenchymal disease or fatty infiltration. This limits evaluation for small masses. No focal large liver mass is identified. No intrahepatic biliary ductal dilatation is identified. Portal vein is patent with normal hepatopetal flow. GALLBLADDER: The gallbladder is physiologically distended. No gallstones, gallbladder wall thickening, or pericholecystic fluid is identified.No sonographic Waite's sign was appreciated during the exam. COMMON BILE DUCT: Normal in caliber measuring 0.3 cm. PANCREAS: Not visualized due to overlying bowel gas. RIGHT KIDNEY: Measures 9.9cm. Unremarkable in echogenicity. No shadowing renal stone, cyst, or hydronephrosis is identified LEFT KIDNEY: Measures 9.9cm. Unremarkable in echogenicity. No shadowing renal stone, cyst, or hydronephrosis is identified SPLEEN: Measures 7cm. Suboptimally visualized and normal in size. AORTA: Not visualized. IVC: Not visualized. OTHER FINDINGS: None. IMPRESSION: Echogenic liver, likely representing fatty infiltration or hepatic parenchymal disease.
[2016-12-30] MEDS: Pantoprazole 40mg/100ml IVPB 40 MG/100 ML BAG IVPB SCH ×5 (08:51→21:08)
[2016-12-30] MEDS ORDERED: Potassium Chloride 20 mEq/15 ml LIQ UD PO ONE (09:52)
[2016-12-30] MEDS ORDERED: Thiamine 100 mg/ml Inj IM SCH (10:00)
[2016-12-30] MEDS: levETIRAcetam 500mg IVPB 500 MG/100 ML BAG IVPB SCH ×2 (10:12→22:55)
[2016-12-30] MEDS: cefTRIAXone 2 GM IN NS 2 GM/100 ML BAG IVPB SCH (10:30)
[2016-12-30] MEDS ORDERED: Potassium & Sodium Phosphate PO ONE ×2 (11:00→18:00)
[2016-12-30] MEDS ORDERED: Multivitamin With Minerals Tab PO SCH (11:15)
--- NOTE | 2016-12-30 11:27 | CP.CCUPN ---
<Marilou Durbin - Last Filed: 12/30/16 11:31> CCU Subjective - Physician Review Events Since Last Encounter (Free Text): 12/30/16 11:24 stable overnight, no episodes of bleeding Subjective (Free Text): 12/30/16 11:24 Critical care progress note for Dr. Manuel Durbin, PGY-1 Pt S & E at bedside. Pt reports no problems overnight. Slept ok. Denies N/V/F, SOB, CP, abdominal pain, PAREDES, back pain, hematemesis, hematochezia. CCU Objective - Vital Signs / Intake & Output Vital Signs (Last 4 hours): Vital Signs Temp Pulse Resp BP Pulse Ox 12/30/16 10:58 83 12/30/16 10:42 97.4 F L 104 H 18 133/71 95 12/30/16 10:40 102 H 22 12/30/16 10:30 86 12/30/16 10:20 83 38 H 12/30/16 10:10 80 25 H 12/30/16 10:02 95 H 20 12/30/16 10:00 80 15 100 12/30/16 09:50 87 17 100 12/30/16 09:40 78 19 100 12/30/16 09:30 85 30 H 100 12/30/16 09:20 86 13 100 12/30/16 09:10 77 22 100 12/30/16 09:00 112 H 18 100 12/30/16 08:59 86 23 133/71 100 12/30/16 08:50 83 27 H 100 12/30/16 08:40 77 15 100 12/30/16 08:30 77 14 100 12/30/16 08:20 84 100 12/30/16 08:10 81 25 H 100 12/30/16 08:01 76 14 110/77 100 12/30/16 08:00 97.5 F L 75 14 110/77 100 12/30/16 07:50 73 15 100 12/30/16 07:40 75 13 100 12/30/16 07:30 83 16 100 Intake and Output (Last 8hrs): Intake & Output 12/29/16 12/30/16 12/30/16 22:59 06:59 14:59 Intake Total 3800 3700 Output Total 700 2800 Balance 3100 900 Intake: IV 2450 3500 LAC 250 RAC 2200 3500 Oral 0 0 Other 1350 200 Output: Urine 700 2800 Urine, Voided 700 2800 Other: Voiding Method Urinal # Bowel Movements 0 0 - Physical Exam Head: Positive for: Atraumatic, Normocephalic Pupils: Positive for: PERRL Extroacular Muscles: Positive for: EOMI Conjunctiva: Positive for: Normal Mouth: Positive for: Dry, Other (scant dark dried material on lip line) Nose (External): Positive for: Atraumatic Neck: Positive for: Normal Range of Motion Respiratory/Chest: Positive for: Clear to Auscultation, Good Air Exchange. Negative for: Respiratory Distress, Accessory Muscle Use, Wheezes, Rales, Rhonchi, Tachypneic Cardiovascular: Positive for: Regular Rate and Rhythm, Normal S1, S2. Negative for: Murmurs Abdomen: Positive for: Normal Bowel Sounds. Negative for: Tenderness, Distention, Peritoneal Signs Upper Extremity: Positive for: Normal Inspection, NORMAL PULSES. Negative for: Cyanosis, Edema, Swelling Lower Extremity: Positive for: Normal Inspection, NORMAL PULSES. Negative for: Edema, Swelling Neurological: Positive for: GCS=15, CN II-XII Intact, Speech Normal Skin: Positive for: Warm, Dry, Normal Color. Negative for: Rashes Psychiatric: Positive for: Alert, Oriented x 3, Normal Insight, Normal Concentration - Medications Active Medications: Active Medications Generic Name Dose Route Start Last Admin Trade Name Freq PRN Reason Stop Dose Admin Folic Acid 1 mg 12/31/16 10:00 Folic Acid PO DAILY JESUS Ceftriaxone Sodium 2 gm in 100 mls @ 100 mls/hr 12/29/16 10:00 12/30/16 10:30 Rocephin 2 Gm Ivpb IVPB 100 mls/hr Q12 JESUS Administration Protocol Octreotide Acetate 1,250 mcg/ 252.5 mls @ 5.05 mls/hr 12/29/16 08:45 09:23 Dextrose IV 25 mcg/hr .Q24H JESUS 5.05 mls/hr Protocol Administration 25 MCG/HR Pantoprazole Sodium 40 mg in 100 mls @ 20 mls/hr 12/29/16 08:45 12/30/16 08: 51 Protonix 40mg Ivpb IVPB 20 mls/hr .Q5H JESUS Administration Levetiracetam 500 mg in 100 mls @ 460 mls/hr 12/29/16 22:00 12/30/16 10:12 Keppra 500mg Ivpb IVPB 460 mls/hr Q12 JESUS Administration Potassium Phosphate 15 mmole/ 255 mls @ 42.5 mls/hr 12/30/16 06:47 12/30/16 09:15 Dextrose IVPB 12/30/16 12:46 42.5 mls/hr ONCE ONE Administration Potassium Chloride 10 meq in 100 mls @ 100 mls/hr 12/30/16 07:00 12/30/16 10: 12 Potassium Chloride 10 Meq/100 Ml IVPB 12/30/16 13:59 100 mls/hr Q2H JESUS Administration Dextrose 1,000 mls @ 500 mls/hr 12/30/16 09:20 12/30/16 10:15 Dextrose 5% In Water 1000 Ml IV 500 mls/hr .Q2H JESUS Administration Lorazepam 2 mg 12/30/16 06:45 Ativan IVP Q2H PRN Seizure activity Protocol Multivitamins/Minerals 1 tab 12/30/16 11:15 Therapeutic-M Tab PO DAILY JESUS Thiamine HCl 100 mg 12/31/16 10:00 Vitamin B1 Tab PO DAILY JESUS - Patient Studies Lab Studies: Microbiology Studies 12/29/16 08:02 Urine Culture - Final Urine,Clean Catch No Growth (<1,000 CFU/ML) Lab Studies 12/30/16 12/30/16 12/30/16 Range/Units 06:11 06:11 00:45 WBC 8.3 (4.5-11.0) 10^3/ul RBC 3.69 (3.5-6.1) 10^6/uL Hgb 11.2 L (14.0-18.0) gm/dL Hct 29.9 L (42.0-52.0) % MCV 81.0 (80.0-105.0) fL MCH 30.4 (25.0-35.0) pg MCHC 37.5 H (31.0-37.0) g/dl RDW 12.6 (11.5-14.5) % Plt Count 114 L (120.0-450.0) 10^3/uL MPV 9.8 (7.0-11.0) fl Gran % 65.0 (50.0-68.0) % Lymph % (Auto) 27.2 (22.0-35.0) % Addison % (Auto) 7.0 H (1.0-6.0) % Eos % (Auto) 0.7 L (1.5-5.0) % Baso % (Auto) 0.1 (0.0-3.0) % Gran # 5.36 (1.4-6.5) Lymph # 2.2 (1.2-3.4) Addison # 0.6 (0.1-0.6) Eos # 0.1 (0.0-0.7) Baso # 0.01 (0.0-2.0) K/mm3 pO2 33 (30-55) mm/Hg VBG pH 7.36 (7.32-7.43) VBG pCO2 40.0 (40-60) VBG HCO3 22.6 (21-28) mmol/l VBG Total CO2 23.8 (22-28) mmol.L VBG O2 Sat (Calc) 67.4 H (40-65) % VBG Base Excess -2.7 L (0.0-2.0) mmol/L VBG Potassium 3.0 L (3.6-5.2) mmol/L Sodium 127 L 125.0 L (132-148) mmol/L Chloride 91 L 92.0 L (98-107) mmol/L Glucose 152 H (75-110) mg/dl Lactate 4.4 H* (0.7-2.1) mmol/L FiO2 21.0 % Potassium 2.6 L* (3.6-5.0) mmol/L Carbon Dioxide 26 (21-33) mmol/L Anion Gap 13 (10-20) BUN 2 L (7-21) mg/dL Creatinine 0.6 (0.5-1.4) mg/dL Est GFR ( Amer) > 60 Est GFR (Non-Af Amer) > 60 Random Glucose 133 H (70-110) mg/dL Calcium 7.4 L (8.4-10.5) mg/dL Phosphorus 0.9 L* (2.5-4.5) mg/dL Magnesium 2.4 H (1.7-2.2) mg/dL Total Bilirubin 0.9 (0.2-1.3) mg/dL AST 224 H (15-59) U/L ALT 82 H (7-56) U/L Alkaline Phosphatase 65 (38-133) U/L Total Protein 6.5 (5.8-8.3) g/dL Albumin 3.8 (3.0-4.8) g/dL Globulin 2.7 gm/dL Albumin/Globulin Ratio 1.4 (1.1-1.8) Venous Blood Potassium 3.0 L (3.6-5.2) mmol/L Urine Osmolality (50-645) mosm/kg Ur Random Sodium meq/L HIV 1&2 Ag/Ab, 4th Gen (Nonreactive) 12/30/16 12/29/16 12/29/16 Range/Units 00:45 19:56 19:56 WBC 10.0 (4.5-11.0) 10^3/ul RBC 3.62 (3.5-6.1) 10^6/uL Hgb 11.0 L (14.0-18.0) gm/dL Hct 29.3 L (42.0-52.0) % MCV 80.9 (80.0-105.0) fL MCH 30.4 (25.0-35.0) pg MCHC 37.5 H (31.0-37.0) g/dl RDW 12.4 (11.5-14.5) % Plt Count 106 L (120.0-450.0) 10^3/uL MPV 10.0 (7.0-11.0) fl Gran % (50.0-68.0) % Lymph % (Auto) (22.0-35.0) % Addison % (Auto) (1.0-6.0) % Eos % (Auto) (1.5-5.0) % Baso % (Auto) (0.0-3.0) % Gran # (1.4-6.5) Lymph # (1.2-3.4) Addison # (0.1-0.6) Eos # (0.0-0.7) Baso # (0.0-2.0) K/mm3 pO2 (30-55) mm/Hg VBG pH (7.32-7.43) VBG pCO2 (40-60) VBG HCO3 (21-28) mmol/l VBG Total CO2 (22-28) mmol.L VBG O2 Sat (Calc) (40-65) % VBG Base Excess (0.0-2.0) mmol/L VBG Potassium (3.6-5.2) mmol/L Sodium 122 L 118 L* (132-148) mmol/L Chloride 90 L 87 L (98-107) mmol/L Glucose (75-110) mg/dl Lactate (0.7-2.1) mmol/L FiO2 % Potassium 3.0 L 2.8 L* (3.6-5.0) mmol/L Carbon Dioxide 22 20 L (21-33) mmol/L Anion Gap 13 14 (10-20) BUN 4 L 6 L (7-21) mg/dL Creatinine 0.6 0.6 (0.5-1.4) mg/dL Est GFR ( Amer) > 60 > 60 Est GFR (Non-Af Amer) > 60 > 60 Random Glucose 142 H 145 H (70-110) mg/dL Calcium 6.6 L* 6.3 L* (8.4-10.5) mg/dL Phosphorus (2.5-4.5) mg/dL Magnesium (1.7-2.2) mg/dL Total Bilirubin (0.2-1.3) mg/dL AST (15-59) U/L ALT (7-56) U/L Alkaline Phosphatase (38-133) U/L Total Protein (5.8-8.3) g/dL Albumin (3.0-4.8) g/dL Globulin gm/dL Albumin/Globulin Ratio (1.1-1.8) Venous Blood Potassium (3.6-5.2) mmol/L Urine Osmolality (50-645) mosm/kg Ur Random Sodium meq/L HIV 1&2 Ag/Ab, 4th Gen (Nonreactive) 12/29/16 12/29/16 12/29/16 Range/Units 16:12 16:12 16:12 WBC 9.9 D (4.5-11.0) 10^3/ul RBC 3.69 (3.5-6.1) 10^6/uL Hgb 11.5 L (14.0-18.0) gm/dL Hct 29.8 L (42.0-52.0) % MCV 80.8 (80.0-105.0) fL MCH 31.2 (25.0-35.0) pg MCHC 38.6 H (31.0-37.0) g/dl RDW 12.4 (11.5-14.5) % Plt Count 111 L (120.0-450.0) 10^3/uL MPV 9.7 (7.0-11.0) fl Gran % (50.0-68.0) % Lymph % (Auto) (22.0-35.0) % Addison % (Auto) (1.0-6.0) % Eos % (Auto) (1.5-5.0) % Baso % (Auto) (0.0-3.0) % Gran # (1.4-6.5) Lymph # (1.2-3.4) Addison # (0.1-0.6) Eos # (0.0-0.7) Baso # (0.0-2.0) K/mm3 pO2 47 (30-55) mm/Hg VBG pH 7.37 (7.32-7.43) VBG pCO2 35.0 L (40-60) VBG HCO3 20.2 L (21-28) mmol/l VBG Total CO2 21.3 L (22-28) mmol.L VBG O2 Sat (Calc) 87.4 H (40-65) % VBG Base Excess -4.5 L (0.0-2.0) mmol/L VBG Potassium 2.4 L* (3.6-5.2) mmol/L Sodium 123.0 L 121 L (132-148) mmol/L Chloride 92.0 L 89 L (98-107) mmol/L Glucose 154 H (75-110) mg/dl Lactate 5.4 H* (0.7-2.1) mmol/L FiO2 21.0 % Potassium 2.6 L* (3.6-5.0) mmol/L Carbon Dioxide 19 L (21-33) mmol/L Anion Gap 16 (10-20) BUN 8 (7-21) mg/dL Creatinine 0.6 (0.5-1.4) mg/dL Est GFR ( Amer) > 60 Est GFR (Non-Af Amer) > 60 Random Glucose 142 H (70-110) mg/dL Calcium 6.4 L* (8.4-10.5) mg/dL Phosphorus (2.5-4.5) mg/dL Magnesium (1.7-2.2) mg/dL Total Bilirubin (0.2-1.3) mg/dL AST (15-59) U/L ALT (7-56) U/L Alkaline Phosphatase (38-133) U/L Total Protein (5.8-8.3) g/dL Albumin (3.0-4.8) g/dL Globulin gm/dL Albumin/Globulin Ratio (1.1-1.8) Venous Blood Potassium 2.4 L* (3.6-5.2) mmol/L Urine Osmolality (50-645) mosm/kg Ur Random Sodium meq/L HIV 1&2 Ag/Ab, 4th Gen (Nonreactive) 12/29/16 12/29/16 12/29/16 Range/Units 15:00 15:00 11:43 WBC (4.5-11.0) 10^3/ul RBC (3.5-6.1) 10^6/uL Hgb (14.0-18.0) gm/dL Hct (42.0-52.0) % MCV (80.0-105.0) fL MCH (25.0-35.0) pg MCHC (31.0-37.0) g/dl RDW (11.5-14.5) % Plt Count (120.0-450.0) 10^3/uL MPV (7.0-11.0) fl Gran % (50.0-68.0) % Lymph % (Auto) (22.0-35.0) % Addison % (Auto) (1.0-6.0) % Eos % (Auto) (1.5-5.0) % Baso % (Auto) (0.0-3.0) % Gran # (1.4-6.5) Lymph # (1.2-3.4) Addison # (0.1-0.6) Eos # (0.0-0.7) Baso # (0.0-2.0) K/mm3 pO2 180 H (30-55) mm/Hg VBG pH 7.46 H (7.32-7.43) VBG pCO2 27.0 L (40-60) VBG HCO3 19.2 L (21-28) mmol/l VBG Total CO2 20.0 L (22-28) mmol.L VBG O2 Sat (Calc) 98.7 H (40-65) % VBG Base Excess -3.2 L (0.0-2.0) mmol/L VBG Potassium 2.4 L* (3.6-5.2) mmol/L Sodium 123.0 L (132-148) mmol/L Chloride 92.0 L (98-107) mmol/L Glucose 133 H (75-110) mg/dl Lactate 4.8 H* (0.7-2.1) mmol/L FiO2 21.0 % Potassium (3.6-5.0) mmol/L Carbon Dioxide (21-33) mmol/L Anion Gap (10-20) BUN (7-21) mg/dL Creatinine (0.5-1.4) mg/dL Est GFR ( Amer) Est GFR (Non-Af Amer) Random Glucose (70-110) mg/dL Calcium (8.4-10.5) mg/dL Phosphorus (2.5-4.5) mg/dL Magnesium (1.7-2.2) mg/dL Total Bilirubin (0.2-1.3) mg/dL AST (15-59) U/L ALT (7-56) U/L Alkaline Phosphatase (38-133) U/L Total Protein (5.8-8.3) g/dL Albumin (3.0-4.8) g/dL Globulin gm/dL Albumin/Globulin Ratio (1.1-1.8) Venous Blood Potassium 2.4 L* (3.6-5.2) mmol/L Urine Osmolality 339 (50-645) mosm/kg Ur Random Sodium 76 meq/L HIV 1&2 Ag/Ab, 4th Gen (Nonreactive) 12/29/16 12/29/16 12/29/16 Range/Units 11:43 08:02 08:00 WBC (4.5-11.0) 10^3/ul RBC (3.5-6.1) 10^6/uL Hgb (14.0-18.0) gm/dL Hct (42.0-52.0) % MCV (80.0-105.0) fL MCH (25.0-35.0) pg MCHC (31.0-37.0) g/dl RDW (11.5-14.5) % Plt Count (120.0-450.0) 10^3/uL MPV (7.0-11.0) fl Gran % (50.0-68.0) % Lymph % (Auto) (22.0-35.0) % Addison % (Auto) (1.0-6.0) % Eos % (Auto) (1.5-5.0) % Baso % (Auto) (0.0-3.0) % Gran # (1.4-6.5) Lymph # (1.2-3.4) Addison # (0.1-0.6) Eos # (0.0-0.7) Baso # (0.0-2.0) K/mm3 pO2 (30-55) mm/Hg VBG pH (7.32-7.43) VBG pCO2 (40-60) VBG HCO3 (21-28) mmol/l VBG Total CO2 (22-28) mmol.L VBG O2 Sat (Calc) (40-65) % VBG Base Excess (0.0-2.0) mmol/L VBG Potassium (3.6-5.2) mmol/L Sodium 121 L (132-148) mmol/L Chloride 89 L D (98-107) mmol/L Glucose (75-110) mg/dl Lactate (0.7-2.1) mmol/L FiO2 % Potassium 2.4 L* (3.6-5.0) mmol/L Carbon Dioxide 19 L (21-33) mmol/L Anion Gap 15 (10-20) BUN 9 (7-21) mg/dL Creatinine 0.6 (0.5-1.4) mg/dL Est GFR ( Amer) > 60 Est GFR (Non-Af Amer) > 60 Random Glucose 123 H (70-110) mg/dL Calcium 6.2 L* (8.4-10.5) mg/dL Phosphorus (2.5-4.5) mg/dL Magnesium (1.7-2.2) mg/dL Total Bilirubin (0.2-1.3) mg/dL AST (15-59) U/L ALT (7-56) U/L Alkaline Phosphatase (38-133) U/L Total Protein (5.8-8.3) g/dL Albumin (3.0-4.8) g/dL Globulin gm/dL Albumin/Globulin Ratio (1.1-1.8) Venous Blood Potassium (3.6-5.2) mmol/L Urine Osmolality 695 H (50-645) mosm/kg Ur Random Sodium meq/L HIV 1&2 Ag/Ab, 4th Gen Nonreactive (Nonreactive) Laboratory Results - last 24 hr 12/29/16 12/29/16 12/29/16 08:00 08:02 11:43 WBC RBC Hgb Hct MCV MCH MCHC RDW Plt Count MPV Gran % Lymph % (Auto) Addison % (Auto) Eos % (Auto) Baso % (Auto) Gran # Lymph # Addison # Eos # Baso # pO2 VBG pH VBG pCO2 VBG HCO3 VBG Total CO2 VBG O2 Sat (Calc) VBG Base Excess VBG Potassium Sodium 121 L Chloride 89 L D Glucose Lactate FiO2 Potassium 2.4 L* Carbon Dioxide 19 L Anion Gap 15 BUN 9 Creatinine 0.6 Est GFR ( Amer) > 60 Est GFR (Non-Af Amer) > 60 Random Glucose 123 H Calcium 6.2 L* Phosphorus Magnesium Total Bilirubin AST ALT Alkaline Phosphatase Total Protein Albumin Globulin Albumin/Globulin Ratio Venous Blood Potassium Urine Osmolality 695 H Ur Random Sodium HIV 1&2 Ag/Ab, 4th Gen Nonreactive 12/29/16 12/29/16 12/29/16 11:43 15:00 15:00 WBC RBC Hgb Hct MCV MCH MCHC RDW Plt Count MPV Gran % Lymph % (Auto) Addison % (Auto) Eos % (Auto) Baso % (Auto) Gran # Lymph # Addison # Eos # Baso # pO2 180 H VBG pH 7.46 H VBG pCO2 27.0 L VBG HCO3 19.2 L VBG Total CO2 20.0 L VBG O2 Sat (Calc) 98.7 H VBG Base Excess -3.2 L VBG Potassium 2.4 L* Sodium 123.0 L Chloride 92.0 L Glucose 133 H Lactate 4.8 H* FiO2 21.0 Potassium Carbon Dioxide Anion Gap BUN Creatinine Est GFR ( Amer) Est GFR (Non-Af Amer) Random Glucose Calcium Phosphorus Magnesium Total Bilirubin AST ALT Alkaline Phosphatase Total Protein Albumin Globulin Albumin/Globulin Ratio Venous Blood Potassium 2.4 L* Urine Osmolality 339 Ur Random Sodium 76 HIV 1&2 Ag/Ab, 4th Gen 12/29/16 12/29/16 12/29/16 16:12 16:12 16:12 WBC 9.9 D RBC 3.69 Hgb 11.5 L Hct 29.8 L MCV 80.8 MCH 31.2 MCHC 38.6 H RDW 12.4 Plt Count 111 L MPV 9.7 Gran % Lymph % (Auto) Addison % (Auto) Eos % (Auto) Baso % (Auto) Gran # Lymph # Addison # Eos # Baso # pO2 47 VBG pH 7.37 VBG pCO2 35.0 L VBG HCO3 20.2 L VBG Total CO2 21.3 L VBG O2 Sat (Calc) 87.4 H VBG Base Excess -4.5 L VBG Potassium 2.4 L* Sodium 121 L 123.0 L Chloride 89 L 92.0 L Glucose 154 H Lactate 5.4 H* FiO2 21.0 Potassium 2.6 L* Carbon Dioxide 19 L Anion Gap 16 BUN 8 Creatinine 0.6 Est GFR ( Amer) > 60 Est GFR (Non-Af Amer) > 60 Random Glucose 142 H Calcium 6.4 L* Phosphorus Magnesium Total Bilirubin AST ALT Alkaline Phosphatase Total Protein Albumin Globulin Albumin/Globulin Ratio Venous Blood Potassium 2.4 L* Urine Osmolality Ur Random Sodium HIV 1&2 Ag/Ab, 4th Gen 12/29/16 12/29/16 12/30/16 19:56 19:56 00:45 WBC 10.0 RBC 3.62 Hgb 11.0 L Hct 29.3 L MCV 80.9 MCH 30.4 MCHC 37.5 H RDW 12.4 Plt Count 106 L MPV 10.0 Gran % Lymph % (Auto) Addison % (Auto) Eos % (Auto) Baso % (Auto) Gran # Lymph # Addison # Eos # Baso # pO2 VBG pH VBG pCO2 VBG HCO3 VBG Total CO2 VBG O2 Sat (Calc) VBG Base Excess VBG Potassium Sodium 118 L* 122 L Chloride 87 L 90 L Glucose Lactate FiO2 Potassium 2.8 L* 3.0 L Carbon Dioxide 20 L 22 Anion Gap 14 13 BUN 6 L 4 L Creatinine 0.6 0.6 Est GFR ( Amer) > 60 > 60 Est GFR (Non-Af Amer) > 60 > 60 Random Glucose 145 H 142 H Calcium 6.3 L* 6.6 L* Phosphorus Magnesium Total Bilirubin AST ALT Alkaline Phosphatase Total Protein Albumin Globulin Albumin/Globulin Ratio Venous Blood Potassium Urine Osmolality Ur Random Sodium HIV 1&2 Ag/Ab, 4th Gen 12/30/16 12/30/16 12/30/16 00:45 06:11 06:11 WBC 8.3 RBC 3.69 Hgb 11.2 L Hct 29.9 L MCV 81.0 MCH 30.4 MCHC 37.5 H RDW 12.6 Plt Count 114 L MPV 9.8 Gran % 65.0 Lymph % (Auto) 27.2 Addison % (Auto) 7.0 H Eos % (Auto) 0.7 L Baso % (Auto) 0.1 Gran # 5.36 Lymph # 2.2 Addison # 0.6 Eos # 0.1 Baso # 0.01 pO2 33 VBG pH 7.36 VBG pCO2 40.0 VBG HCO3 22.6 VBG Total CO2 23.8 VBG O2 Sat (Calc) 67.4 H VBG Base Excess -2.7 L VBG Potassium 3.0 L Sodium 125.0 L 127 L Chloride 92.0 L 91 L Glucose 152 H Lactate 4.4 H* FiO2 21.0 Potassium 2.6 L* Carbon Dioxide 26 Anion Gap 13 BUN 2 L Creatinine 0.6 Est GFR ( Amer) > 60 Est GFR (Non-Af Amer) > 60 Random Glucose 133 H Calcium 7.4 L Phosphorus 0.9 L* Magnesium 2.4 H Total Bilirubin 0.9 AST 224 H ALT 82 H Alkaline Phosphatase 65 Total Protein 6.5 Albumin 3.8 Globulin 2.7 Albumin/Globulin Ratio 1.4 Venous Blood Potassium 3.0 L Urine Osmolality Ur Random Sodium HIV 1&2 Ag/Ab, 4th Gen Review of Systems - Review of Systems All systems: reviewed and no additional remarkable complaints except - Constitutional Constitutional: absent: Fever, Chills - EENT Eyes: UNREMARKABLE - Cardiovascular Cardiovascular: UNREMARKABLE. absent: Chest Pain - Respiratory Respiratory: UNREMARKABLE. absent: Dyspnea - Gastrointestinal Gastrointestinal: UNREMARKABLE. absent: Abdominal Pain, Nausea, Vomiting - Musculoskeletal Musculoskeletal: UNREMARKABLE. absent: Neck Pain - Neurological Neurological: UNREMARKABLE. absent: Dizziness, Headaches Critical Care Progress Note - Ventilator Checklist PUD Prophalyxis: Yes DVT Prophylaxis: Yes - Extremities/Vascular Does the Patient have a Central Venous Catheter?: No Does the Patient need a Central Venous Catheter?: No Does the Patient have a Rosen Catheter?: No Does the Patient need a Rosen Catheter?: No - Prophylaxis GI Prophylaxis GI: PPI - Prophylaxis DVT Prophylaxis DVT: SCDs - Nutrition Nutrition: Nutrition Category Date Time Status Liquid Diet [DIET] Diets 12/30/16 Breakfast Ordered Assessment/Plan - Assessment and Plan (Free Text) Assessment: 31M w/PMH sig for ETOH abuse, hx seizures with ETOH use admitted to ICU s/p seizure activity, 1 episode of hematemesis, electrolyte imbalances-severe hyponatemia, hypokalemia, severe hypophosphatemia- need for continued monitoring /correction of imbalances. Pt currently stable. Plan: Neuro s/p seizure Alert Awake Oriented Verbal Cont Keppra 500mg Q12H Ativan PRN seizure Thiamine Folic acid MV CIWA protocol Seizure precautions Aspiration precautions Fall precautions FU MRI brain FU EEG Monitor Neuro following CVS Episodes of tachycardia Fluctuating BP, mostly normotensive Monitor Pulm Episodes of tachypnea Sa02 95% Target SaO2 to keep >94% BG pH 7.36, pCO2 40, pO2 33, HCO3 22.6 Stable on RA Monitor GI CLD as per GI Protonix drip Ocreotide drip GI following Nephro Severe hyponatremia, corrected from 112 to 127 Desmopression 4mcg given D5 @500cc/hr Hypokalemia K 2.6 KCl 10mEq x 4 KCl 60mEq PO soln Hypophosphatemia Phos 0.6 KPhos 15mmole x 1 Neutra-phos x 2 Hypermagnesemia Mg 2.4 On IVF I/O's Urine osm 399 from 695 Random Na 76 Target euvolemia Monitor closely Serial BMPs Nephro following Able to urinate on own U/A neg Urine osm 399 from 695 GI following- recs for CLD, no intervention at this time Endo Blood sugar 133 Target euglycemia as per NICE sugar trial ID SIRS, R/O sepsis Afebrile No leukocytosis Lactic Acid 4.4 from 5.4; 8 on admission Cont Rocephin as per ID HIV neg FU Hep panel Urine cxr neg Blood cxr neg x 24H Procalcitonin 0.16 ID following Heme s/p acute episode of hematemesis H/H stable Hgb 11.2 from 11 Hct 29.9 from 29.3 Monitor MSK Fall precautions Seizure precautions GI/DVT ppx Contraindications to VTE ppx due to acute hematemesis On Protonix drip SCDs Dispo Stable Continue ICU care for now DW attending - Date & Time Date: 12/30/16 Time: 07:30 <Indy Tovar MD H - Last Filed: 12/30/16 11:41> CCU Objective - Vital Signs / Intake & Output Vital Signs (Last 4 hours): Vital Signs Temp Pulse Resp BP Pulse Ox 12/30/16 10:58 83 12/30/16 10:42 97.4 F L 104 H 18 133/71 95 12/30/16 10:40 102 H 22 12/30/16 10:30 86 12/30/16 10:20 83 38 H 12/30/16 10:10 80 25 H 12/30/16 10:02 95 H 20 12/30/16 10:00 80 15 100 12/30/16 09:50 87 17 100 12/30/16 09:40 78 19 100 12/30/16 09:30 85 30 H 100 12/30/16 09:20 86 13 100 12/30/16 09:10 77 22 100 12/30/16 09:00 112 H 18 100 12/30/16 08:59 86 23 133/71 100 12/30/16 08:50 83 27 H 100 12/30/16 08:40 77 15 100 12/30/16 08:30 77 14 100 12/30/16 08:20 84 100 12/30/16 08:10 81 25 H 100 12/30/16 08:01 76 14 110/77 100 12/30/16 08:00 97.5 F L 75 14 110/77 100 12/30/16 07:50 73 15 100 12/30/16 07:40 75 13 100 Intake and Output (Last 8hrs): Intake & Output 12/29/16 12/30/16 12/30/16 22:59 06:59 14:59 Intake Total 3800 3700 Output Total 700 2800 Balance 3100 900 Intake: IV 2450 3500 LAC 250 RAC 2200 3500 Oral 0 0 Other 1350 200 Output: Urine 700 2800 Urine, Voided 700 2800 Other: Voiding Method Urinal # Bowel Movements 0 0 - Medications Active Medications: Active Medications Generic Name Dose Route Start Last Admin Trade Name Freq PRN Reason Stop Dose Admin Folic Acid 1 mg 12/31/16 10:00 Folic Acid PO DAILY JESUS Ceftriaxone Sodium 2 gm in 100 mls @ 100 mls/hr 12/29/16 10:00 12/30/16 10:30 Rocephin 2 Gm Ivpb IVPB 100 mls/hr Q12 JESUS Administration Protocol Octreotide Acetate 1,250 mcg/ 252.5 mls @ 5.05 mls/hr 12/29/16 08:45 09:23 Dextrose IV 25 mcg/hr .Q24H JESUS 5.05 mls/hr Protocol Administration 25 MCG/HR Pantoprazole Sodium 40 mg in 100 mls @ 20 mls/hr 12/29/16 08:45 12/30/16 08: 51 Protonix 40mg Ivpb IVPB 20 mls/hr .Q5H JESUS Administration Levetiracetam 500 mg in 100 mls @ 460 mls/hr 12/29/16 22:00 12/30/16 10:12 Keppra 500mg Ivpb IVPB 460 mls/hr Q12 JESUS Administration Potassium Phosphate 15 mmole/ 255 mls @ 42.5 mls/hr 12/30/16 06:47 12/30/16 09:15 Dextrose IVPB 12/30/16 12:46 42.5 mls/hr ONCE ONE Administration Potassium Chloride 10 meq in 100 mls @ 100 mls/hr 12/30/16 07:00 12/30/16 10: 12 Potassium Chloride 10 Meq/100 Ml IVPB 12/30/16 13:59 100 mls/hr Q2H JESUS Administration Dextrose 1,000 mls @ 500 mls/hr 12/30/16 09:20 12/30/16 10:15 Dextrose 5% In Water 1000 Ml IV 500 mls/hr .Q2H JESUS Administration Lorazepam 2 mg 12/30/16 06:45 Ativan IVP Q2H PRN Seizure activity Protocol Multivitamins/Minerals 1 tab 12/30/16 11:15 Therapeutic-M Tab PO DAILY JESUS Thiamine HCl 100 mg 12/31/16 10:00 Vitamin B1 Tab PO DAILY JESUS - Patient Studies Lab Studies: Microbiology Studies 12/29/16 08:02 Urine Culture - Final Urine,Clean Catch No Growth (<1,000 CFU/ML) Lab Studies 12/30/16 12/30/16 12/30/16 Range/Units 06:11 06:11 00:45 WBC 8.3 (4.5-11.0) 10^3/ul RBC 3.69 (3.5-6.1) 10^6/uL Hgb 11.2 L (14.0-18.0) gm/dL Hct 29.9 L (42.0-52.0) % MCV 81.0 (80.0-105.0) fL MCH 30.4 (25.0-35.0) pg MCHC 37.5 H (31.0-37.0) g/dl RDW 12.6 (11.5-14.5) % Plt Count 114 L (120.0-450.0) 10^3/uL MPV 9.8 (7.0-11.0) fl Gran % 65.0 (50.0-68.0) % Lymph % (Auto) 27.2 (22.0-35.0) % Addison % (Auto) 7.0 H (1.0-6.0) % Eos % (Auto) 0.7 L (1.5-5.0) % Baso % (Auto) 0.1 (0.0-3.0) % Gran # 5.36 (1.4-6.5) Lymph # 2.2 (1.2-3.4) Addison # 0.6 (0.1-0.6) Eos # 0.1 (0.0-0.7) Baso # 0.01 (0.0-2.0) K/mm3 pO2 33 (30-55) mm/Hg VBG pH 7.36 (7.32-7.43) VBG pCO2 40.0 (40-60) VBG HCO3 22.6 (21-28) mmol/l VBG Total CO2 23.8 (22-28) mmol.L VBG O2 Sat (Calc) 67.4 H (40-65) % VBG Base Excess -2.7 L (0.0-2.0) mmol/L VBG Potassium 3.0 L (3.6-5.2) mmol/L Sodium 127 L 125.0 L (132-148) mmol/L Chloride 91 L 92.0 L (98-107) mmol/L Glucose 152 H (75-110) mg/dl Lactate 4.4 H* (0.7-2.1) mmol/L FiO2 21.0 % Potassium 2.6 L* (3.6-5.0) mmol/L Carbon Dioxide 26 (21-33) mmol/L Anion Gap 13 (10-20) BUN 2 L (7-21) mg/dL Creatinine 0.6 (0.5-1.4) mg/dL Est GFR ( Amer) > 60 Est GFR (Non-Af Amer) > 60 Random Glucose 133 H (70-110) mg/dL Calcium 7.4 L (8.4-10.5) mg/dL Phosphorus 0.9 L* (2.5-4.5) mg/dL Magnesium 2.4 H (1.7-2.2) mg/dL Total Bilirubin 0.9 (0.2-1.3) mg/dL AST 224 H (15-59) U/L ALT 82 H (7-56) U/L Alkaline Phosphatase 65 (38-133) U/L Total Protein 6.5 (5.8-8.3) g/dL Albumin 3.8 (3.0-4.8) g/dL Globulin 2.7 gm/dL Albumin/Globulin Ratio 1.4 (1.1-1.8) Venous Blood Potassium 3.0 L (3.6-5.2) mmol/L Urine Osmolality (50-645) mosm/kg Ur Random Sodium meq/L HIV 1&2 Ag/Ab, 4th Gen (Nonreactive) 12/30/16 12/29/16 12/29/16 Range/Units 00:45 19:56 19:56 WBC 10.0 (4.5-11.0) 10^3/ul RBC 3.62 (3.5-6.1) 10^6/uL Hgb 11.0 L (14.0-18.0) gm/dL Hct 29.3 L (42.0-52.0) % MCV 80.9 (80.0-105.0) fL MCH 30.4 (25.0-35.0) pg MCHC 37.5 H (31.0-37.0) g/dl RDW 12.4 (11.5-14.5) % Plt Count 106 L (120.0-450.0) 10^3/uL MPV 10.0 (7.0-11.0) fl Gran % (50.0-68.0) % Lymph % (Auto) (22.0-35.0) % Addison % (Auto) (1.0-6.0) % Eos % (Auto) (1.5-5.0) % Baso % (Auto) (0.0-3.0) % Gran # (1.4-6.5) Lymph # (1.2-3.4) Addison # (0.1-0.6) Eos # (0.0-0.7) Baso # (0.0-2.0) K/mm3 pO2 (30-55) mm/Hg VBG pH (7.32-7.43) VBG pCO2 (40-60) VBG HCO3 (21-28) mmol/l VBG Total CO2 (22-28) mmol.L VBG O2 Sat (Calc) (40-65) % VBG Base Excess (0.0-2.0) mmol/L VBG Potassium (3.6-5.2) mmol/L Sodium 122 L 118 L* (132-148) mmol/L Chloride 90 L 87 L (98-107) mmol/L Glucose (75-110) mg/dl Lactate (0.7-2.1) mmol/L FiO2 % Potassium 3.0 L 2.8 L* (3.6-5.0) mmol/L Carbon Dioxide 22 20 L (21-33) mmol/L Anion Gap 13 14 (10-20) BUN 4 L 6 L (7-21) mg/dL Creatinine 0.6 0.6 (0.5-1.4) mg/dL Est GFR ( Amer) > 60 > 60 Est GFR (Non-Af Amer) > 60 > 60 Random Glucose 142 H 145 H (70-110) mg/dL Calcium 6.6 L* 6.3 L* (8.4-10.5) mg/dL Phosphorus (2.5-4.5) mg/dL Magnesium (1.7-2.2) mg/dL Total Bilirubin (0.2-1.3) mg/dL AST (15-59) U/L ALT (7-56) U/L Alkaline Phosphatase (38-133) U/L Total Protein (5.8-8.3) g/dL Albumin (3.0-4.8) g/dL Globulin gm/dL Albumin/Globulin Ratio (1.1-1.8) Venous Blood Potassium (3.6-5.2) mmol/L Urine Osmolality (50-645) mosm/kg Ur Random Sodium meq/L HIV 1&2 Ag/Ab, 4th Gen (Nonreactive) 12/29/16 12/29/16 12/29/16 Range/Units 16:12 16:12 16:12 WBC 9.9 D (4.5-11.0) 10^3/ul RBC 3.69 (3.5-6.1) 10^6/uL Hgb 11.5 L (14.0-18.0) gm/dL Hct 29.8 L (42.0-52.0) % MCV 80.8 (80.0-105.0) fL MCH 31.2 (25.0-35.0) pg MCHC 38.6 H (31.0-37.0) g/dl RDW 12.4 (11.5-14.5) % Plt Count 111 L (120.0-450.0) 10^3/uL MPV 9.7 (7.0-11.0) fl Gran % (50.0-68.0) % Lymph % (Auto) (22.0-35.0) % Addison % (Auto) (1.0-6.0) % Eos % (Auto) (1.5-5.0) % Baso % (Auto) (0.0-3.0) % Gran # (1.4-6.5) Lymph # (1.2-3.4) Addison # (0.1-0.6) Eos # (0.0-0.7) Baso # (0.0-2.0) K/mm3 pO2 47 (30-55) mm/Hg VBG pH 7.37 (7.32-7.43) VBG pCO2 35.0 L (40-60) VBG HCO3 20.2 L (21-28) mmol/l VBG Total CO2 21.3 L (22-28) mmol.L VBG O2 Sat (Calc) 87.4 H (40-65) % VBG Base Excess -4.5 L (0.0-2.0) mmol/L VBG Potassium 2.4 L* (3.6-5.2) mmol/L Sodium 123.0 L 121 L (132-148) mmol/L Chloride 92.0 L 89 L (98-107) mmol/L Glucose 154 H (75-110) mg/dl Lactate 5.4 H* (0.7-2.1) mmol/L FiO2 21.0 % Potassium 2.6 L* (3.6-5.0) mmol/L Carbon Dioxide 19 L (21-33) mmol/L Anion Gap 16 (10-20) BUN 8 (7-21) mg/dL Creatinine 0.6 (0.5-1.4) mg/dL Est GFR ( Amer) > 60 Est GFR (Non-Af Amer) > 60 Random Glucose 142 H (70-110) mg/dL Calcium 6.4 L* (8.4-10.5) mg/dL Phosphorus (2.5-4.5) mg/dL Magnesium (1.7-2.2) mg/dL Total Bilirubin (0.2-1.3) mg/dL AST (15-59) U/L ALT (7-56) U/L Alkaline Phosphatase (38-133) U/L Total Protein (5.8-8.3) g/dL Albumin (3.0-4.8) g/dL Globulin gm/dL Albumin/Globulin Ratio (1.1-1.8) Venous Blood Potassium 2.4 L* (3.6-5.2) mmol/L Urine Osmolality (50-645) mosm/kg Ur Random Sodium meq/L HIV 1&2 Ag/Ab, 4th Gen (Nonreactive) 12/29/16 12/29/16 12/29/16 Range/Units 15:00 15:00 11:43 WBC (4.5-11.0) 10^3/ul RBC (3.5-6.1) 10^6/uL Hgb (14.0-18.0) gm/dL Hct (42.0-52.0) % MCV (80.0-105.0) fL MCH (25.0-35.0) pg MCHC (31.0-37.0) g/dl RDW (11.5-14.5) % Plt Count (120.0-450.0) 10^3/uL MPV (7.0-11.0) fl Gran % (50.0-68.0) % Lymph % (Auto) (22.0-35.0) % Addison % (Auto) (1.0-6.0) % Eos % (Auto) (1.5-5.0) % Baso % (Auto) (0.0-3.0) % Gran # (1.4-6.5) Lymph # (1.2-3.4) Addison # (0.1-0.6) Eos # (0.0-0.7) Baso # (0.0-2.0) K/mm3 pO2 180 H (30-55) mm/Hg VBG pH 7.46 H (7.32-7.43) VBG pCO2 27.0 L (40-60) VBG HCO3 19.2 L (21-28) mmol/l VBG Total CO2 20.0 L (22-28) mmol.L VBG O2 Sat (Calc) 98.7 H (40-65) % VBG Base Excess -3.2 L (0.0-2.0) mmol/L VBG Potassium 2.4 L* (3.6-5.2) mmol/L Sodium 123.0 L (132-148) mmol/L Chloride 92.0 L (98-107) mmol/L Glucose 133 H (75-110) mg/dl Lactate 4.8 H* (0.7-2.1) mmol/L FiO2 21.0 % Potassium (3.6-5.0) mmol/L Carbon Dioxide (21-33) mmol/L Anion Gap (10-20) BUN (7-21) mg/dL Creatinine (0.5-1.4) mg/dL Est GFR ( Amer) Est GFR (Non-Af Amer) Random Glucose (70-110) mg/dL Calcium (8.4-10.5) mg/dL Phosphorus (2.5-4.5) mg/dL Magnesium (1.7-2.2) mg/dL Total Bilirubin (0.2-1.3) mg/dL AST (15-59) U/L ALT (7-56) U/L Alkaline Phosphatase (38-133) U/L Total Protein (5.8-8.3) g/dL Albumin (3.0-4.8) g/dL Globulin gm/dL Albumin/Globulin Ratio (1.1-1.8) Venous Blood Potassium 2.4 L* (3.6-5.2) mmol/L Urine Osmolality 339 (50-645) mosm/kg Ur Random Sodium 76 meq/L HIV 1&2 Ag/Ab, 4th Gen (Nonreactive) 12/29/16 12/29/16 12/29/16 Range/Units 11:43 08:02 08:00 WBC (4.5-11.0) 10^3/ul RBC (3.5-6.1) 10^6/uL Hgb (14.0-18.0) gm/dL Hct (42.0-52.0) % MCV (80.0-105.0) fL MCH (25.0-35.0) pg MCHC (31.0-37.0) g/dl RDW (11.5-14.5) % Plt Count (120.0-450.0) 10^3/uL MPV (7.0-11.0) fl Gran % (50.0-68.0) % Lymph % (Auto) (22.0-35.0) % Addison % (Auto) (1.0-6.0) % Eos % (Auto) (1.5-5.0) % Baso % (Auto) (0.0-3.0) % Gran # (1.4-6.5) Lymph # (1.2-3.4) Addison # (0.1-0.6) Eos # (0.0-0.7) Baso # (0.0-2.0) K/mm3 pO2 (30-55) mm/Hg VBG pH (7.32-7.43) VBG pCO2 (40-60) VBG HCO3 (21-28) mmol/l VBG Total CO2 (22-28) mmol.L VBG O2 Sat (Calc) (40-65) % VBG Base Excess (0.0-2.0) mmol/L VBG Potassium (3.6-5.2) mmol/L Sodium 121 L (132-148) mmol/L Chloride 89 L D (98-107) mmol/L Glucose (75-110) mg/dl Lactate (0.7-2.1) mmol/L FiO2 % Potassium 2.4 L* (3.6-5.0) mmol/L Carbon Dioxide 19 L (21-33) mmol/L Anion Gap 15 (10-20) BUN 9 (7-21) mg/dL Creatinine 0.6 (0.5-1.4) mg/dL Est GFR ( Amer) > 60 Est GFR (Non-Af Amer) > 60 Random Glucose 123 H (70-110) mg/dL Calcium 6.2 L* (8.4-10.5) mg/dL Phosphorus (2.5-4.5) mg/dL Magnesium (1.7-2.2) mg/dL Total Bilirubin (0.2-1.3) mg/dL AST (15-59) U/L ALT (7-56) U/L Alkaline Phosphatase (38-133) U/L Total Protein (5.8-8.3) g/dL Albumin (3.0-4.8) g/dL Globulin gm/dL Albumin/Globulin Ratio (1.1-1.8) Venous Blood Potassium (3.6-5.2) mmol/L Urine Osmolality 695 H (50-645) mosm/kg Ur Random Sodium meq/L HIV 1&2 Ag/Ab, 4th Gen Nonreactive (Nonreactive) Laboratory Results - last 24 hr 12/29/16 12/29/16 12/29/16 08:00 08:02 11:43 WBC RBC Hgb Hct MCV MCH MCHC RDW Plt Count MPV Gran % Lymph % (Auto) Addison % (Auto) Eos % (Auto) Baso % (Auto) Gran # Lymph # Addison # Eos # Baso # pO2 VBG pH VBG pCO2 VBG HCO3 VBG Total CO2 VBG O2 Sat (Calc) VBG Base Excess VBG Potassium Sodium 121 L Chloride 89 L D Glucose Lactate FiO2 Potassium 2.4 L* Carbon Dioxide 19 L Anion Gap 15 BUN 9 Creatinine 0.6 Est GFR ( Amer) > 60 Est GFR (Non-Af Amer) > 60 Random Glucose 123 H Calcium 6.2 L* Phosphorus Magnesium Total Bilirubin AST ALT Alkaline Phosphatase Total Protein Albumin Globulin Albumin/Globulin Ratio Venous Blood Potassium Urine Osmolality 695 H Ur Random Sodium HIV 1&2 Ag/Ab, 4th Gen Nonreactive 12/29/16 12/29/16 12/29/16 11:43 15:00 15:00 WBC RBC Hgb Hct MCV MCH MCHC RDW Plt Count MPV Gran % Lymph % (Auto) Addison % (Auto) Eos % (Auto) Baso % (Auto) Gran # Lymph # Addison # Eos # Baso # pO2 180 H VBG pH 7.46 H VBG pCO2 27.0 L VBG HCO3 19.2 L VBG Total CO2 20.0 L VBG O2 Sat (Calc) 98.7 H VBG Base Excess -3.2 L VBG Potassium 2.4 L* Sodium 123.0 L Chloride 92.0 L Glucose 133 H Lactate 4.8 H* FiO2 21.0 Potassium Carbon Dioxide Anion Gap BUN Creatinine Est GFR ( Amer) Est GFR (Non-Af Amer) Random Glucose Calcium Phosphorus Magnesium Total Bilirubin AST ALT Alkaline Phosphatase Total Protein Albumin Globulin Albumin/Globulin Ratio Venous Blood Potassium 2.4 L* Urine Osmolality 339 Ur Random Sodium 76 HIV 1&2 Ag/Ab, 4th Gen 12/29/16 12/29/16 12/29/16 16:12 16:12 16:12 WBC 9.9 D RBC 3.69 Hgb 11.5 L Hct 29.8 L MCV 80.8 MCH 31.2 MCHC 38.6 H RDW 12.4 Plt Count 111 L MPV 9.7 Gran % Lymph % (Auto) Addison % (Auto) Eos % (Auto) Baso % (Auto) Gran # Lymph # Addison # Eos # Baso # pO2 47 VBG pH 7.37 VBG pCO2 35.0 L VBG HCO3 20.2 L VBG Total CO2 21.3 L VBG O2 Sat (Calc) 87.4 H VBG Base Excess -4.5 L VBG Potassium 2.4 L* Sodium 121 L 123.0 L Chloride 89 L 92.0 L Glucose 154 H Lactate 5.4 H* FiO2 21.0 Potassium 2.6 L* Carbon Dioxide 19 L Anion Gap 16 BUN 8 Creatinine 0.6 Est GFR ( Amer) > 60 Est GFR (Non-Af Amer) > 60 Random Glucose 142 H Calcium 6.4 L* Phosphorus Magnesium Total Bilirubin AST ALT Alkaline Phosphatase Total Protein Albumin Globulin Albumin/Globulin Ratio Venous Blood Potassium 2.4 L* Urine Osmolality Ur Random Sodium HIV 1&2 Ag/Ab, 4th Gen 12/29/16 12/29/16 12/30/16 19:56 19:56 00:45 WBC 10.0 RBC 3.62 Hgb 11.0 L Hct 29.3 L MCV 80.9 MCH 30.4 MCHC 37.5 H RDW 12.4 Plt Count 106 L MPV 10.0 Gran % Lymph % (Auto) Addison % (Auto) Eos % (Auto) Baso % (Auto) Gran # Lymph # Addison # Eos # Baso # pO2 VBG pH VBG pCO2 VBG HCO3 VBG Total CO2 VBG O2 Sat (Calc) VBG Base Excess VBG Potassium Sodium 118 L* 122 L Chloride 87 L 90 L Glucose Lactate FiO2 Potassium 2.8 L* 3.0 L Carbon Dioxide 20 L 22 Anion Gap 14 13 BUN 6 L 4 L Creatinine 0.6 0.6 Est GFR ( Amer) > 60 > 60 Est GFR (Non-Af Amer) > 60 > 60 Random Glucose 145 H 142 H Calcium 6.3 L* 6.6 L* Phosphorus Magnesium Total Bilirubin AST ALT Alkaline Phosphatase Total Protein Albumin Globulin Albumin/Globulin Ratio Venous Blood Potassium Urine Osmolality Ur Random Sodium HIV 1&2 Ag/Ab, 4th Gen 12/30/16 12/30/16 12/30/16 00:45 06:11 06:11 WBC 8.3 RBC 3.69 Hgb 11.2 L Hct 29.9 L MCV 81.0 MCH 30.4 MCHC 37.5 H RDW 12.6 Plt Count 114 L MPV 9.8 Gran % 65.0 Lymph % (Auto) 27.2 Addison % (Auto) 7.0 H Eos % (Auto) 0.7 L Baso % (Auto) 0.1 Gran # 5.36 Lymph # 2.2 Addison # 0.6 Eos # 0.1 Baso # 0.01 pO2 33 VBG pH 7.36 VBG pCO2 40.0 VBG HCO3 22.6 VBG Total CO2 23.8 VBG O2 Sat (Calc) 67.4 H VBG Base Excess -2.7 L VBG Potassium 3.0 L Sodium 125.0 L 127 L Chloride 92.0 L 91 L Glucose 152 H Lactate 4.4 H* FiO2 21.0 Potassium 2.6 L* Carbon Dioxide 26 Anion Gap 13 BUN 2 L Creatinine 0.6 Est GFR ( Amer) > 60 Est GFR (Non-Af Amer) > 60 Random Glucose 133 H Calcium 7.4 L Phosphorus 0.9 L* Magnesium 2.4 H Total Bilirubin 0.9 AST 224 H ALT 82 H Alkaline Phosphatase 65 Total Protein 6.5 Albumin 3.8 Globulin 2.7 Albumin/Globulin Ratio 1.4 Venous Blood Potassium 3.0 L Urine Osmolality Ur Random Sodium HIV 1&2 Ag/Ab, 4th Gen Critical Care Progress Note - Nutrition Nutrition: Nutrition Category Date Time Status Liquid Diet [DIET] Diets 12/30/16 Breakfast Ordered Attending/Attestation - Attestation I have personally seen and examined this patient.: Yes I have fully participated in the care of the patient.: Yes I have reviewed all pertinent clinical information: Yes Notes (Text): 12/30/16 11:37 31 y/o M w/ presumed upper GI bleed and Symptomatic hyponatremia Gi Bleed Overnight no further bleeding. No acute distress, or drop in HGB . HGB>7 Platelets > 100k INR < 2.0 On PPI Drip and Octreotide, pending GI decision to perform EGD NPO except Meds. Nausea prn treatment No hx of cirrohsis or varicies. Replete electrolytes w/ oral and IV K, MG and Phos Hyponatremia Likely hypovolemic hyponatremia Urine Sodium improving. Volume repletion accordingly but quick correction of NA Likely acute hyponatremia , mental status intact . Na in 24 hrs > 12 MEQ. Started on D5W and Desopressin given. CMP q4 hrs. No further seizures. On keppra P. dvt p SCD cc time 65 min
--- NOTE | 2016-12-30 11:30 | PN ---
DATE: 12/30/2016 SUBJECTIVE: The patient is seen in the unit, lying in bed, comfortable. He feels much better. He h as not had any further seizure activity. Denies any further hematemesis. He denies any melena, rect al bleeding. PHYSICAL EXAMINATION: VITAL SIGNS: Reveal temperature of 97.4, blood pressure 133/71, heart rate 104. ABDOMEN: Soft, nontender. LABORATORY DATA: Reveal hemoglobin 11.2, sodium 127, potassium 2.6. IMPRESSION: A 31-year-old male with alcoholism, admitted with seizures and severe hyponatremia and h ypokalemia. Sodium is up to 127. His potassium is still low at 2.6. His hemoglobin is stable at 11 .2, has not had any overt gastrointestinal bleeding. RECOMMENDATIONS: 1. I will start the patient on clear liquid diet. Note ultrasound of the abdomen showed fatty liver secondary to alcoholism, but no evidence of cirrhosis. I do not believe that this is a significant u pper gastrointestinal bleed. The drop in hemoglobin is most likely dilutional. Would advance diet a s tolerated. Continue PPI and follow serial hematocrits. Mauricio Rm MD cc: [id number] TT: 12/30/2016 11:29:43 Confirmation # [id number] Dictation # [id number] karissa
[2016-12-30 12:15] LABS: BLOOD UREA NITROGEN < 2 mg/dL (7-21); CALCIUM 7.5 mg/dL (8.4-10.5); CARBON DIOXIDE 19 mmol/L (21-33); CHLORIDE 96 mmol/L (95-110); GFR AFRICAN-AMERICAN > 60; GLUCOSE,RANDOM 109 mg/dL (70-110); POTASSIUM 3.6 mmol/L (3.6-5.0); SODIUM 129 mmol/L (132-148)
[2016-12-30 15:27] LABS: ADD MANUAL DIFF? NO
--- NOTE | 2016-12-30 15:29 | CP.PCM.PN ---
<Serafin Tineo - Last Filed: 12/30/16 15:26> Subjective - Date & Time of Evaluation Date of Evaluation: 12/30/16 Time of Evaluation: 07:30 - Subjective Subjective: 31 year old Yoruba speaking male with pmh of alcohol abuse and seizures. Today , pt. was comfortable in bed and had no complaints. Pt. denies headaches, chest pain or difficulty breathing, nausea, vomiting or diarrhea. Objective - Vital Signs/Intake and Output Vital Signs (last 24 hours): Temp Pulse Resp BP Pulse Ox 98.6 F 75 18 155/112 H 98 12/30/16 12:00 12/30/16 14:54 12/30/16 14:10 12/30/16 14:00 12/30/16 14:10 Intake and Output: 12/30/16 12/30/16 06:59 18:59 Intake Total 3700 Output Total 2800 Balance 900 - Medications Medications: Current Medications Folic Acid (Folic Acid) 1 mg PO DAILY JESUS Ceftriaxone Sodium (Rocephin 2 Gm Ivpb) 2 gm in 100 mls @ 100 mls/hr IVPB Q12 JESUS PRN Reason: Protocol Last Admin: 12/30/16 10:30 Dose: 100 mls/hr Octreotide Acetate 1,250 mcg/ (Dextrose) 252.5 mls @ 5.05 mls/hr IV .Q24H JESUS; 25 MCG/HR PRN Reason: Protocol Last Admin: 12/29/16 09:23 Dose: 25 mcg/hr, 5.05 mls/hr Pantoprazole Sodium (Protonix 40mg Ivpb) 40 mg in 100 mls @ 20 mls/hr IVPB .Q5H JESUS Last Admin: 12/30/16 14:51 Dose: 20 mls/hr Levetiracetam (Keppra 500mg Ivpb) 500 mg in 100 mls @ 460 mls/hr IVPB Q12 JESUS Last Admin: 12/30/16 10:12 Dose: 460 mls/hr Potassium Chloride (Potassium Chloride 10 Meq/100 Ml) 10 meq in 100 mls @ 100 mls/hr IVPB Q2H JESUS Last Admin: 12/30/16 12:00 Dose: 100 mls/hr Dextrose (Dextrose 5% In Water 1000 Ml) 1,000 mls @ 500 mls/hr IV .Q2H JESUS Last Admin: 12/30/16 13:58 Dose: Not Given Lorazepam (Ativan) 2 mg IVP Q2H PRN; Protocol PRN Reason: Seizure activity Multivitamins/Minerals (Therapeutic-M Tab) 1 tab PO DAILY JESUS Last Admin: 12/30/16 12:20 Dose: 1 tab Thiamine HCl (Vitamin B1 Tab) 100 mg PO DAILY [facility] - Labs Labs: 12/30/16 06:11 12/30/16 11:40 PT 12.6 Seconds (9.9-11.8) H 12/29/16 07:14 INR 1.17 (0.93-1.08) H 12/29/16 07:14 APTT 28.7 Seconds (23.7-30.8) 12/29/16 07:14 - Constitutional Appears: No Acute Distress - Head Exam Head Exam: ATRAUMATIC, NORMOCEPHALIC - Eye Exam Eye Exam: EOMI - ENT Exam ENT Exam: Mucous Membranes Moist - Neck Exam Neck Exam: Full ROM. absent: Lymphadenopathy, Thyromegaly - Respiratory Exam Respiratory Exam: Clear to Ausculation Bilateral, NORMAL BREATHING PATTERN. absent: Rhonchi, Wheezes - Cardiovascular Exam Cardiovascular Exam: REGULAR RHYTHM, +S1, +S2. absent: JVD - GI/Abdominal Exam GI & Abdominal Exam: Soft, Normal Bowel Sounds. absent: Tenderness - Extremities Exam Extremities Exam: absent: Joint Swelling, Pedal Edema, Tenderness - Back Exam Back Exam: CVA tenderness (R). absent: CVA tenderness (L), paraspinal tenderness, rash noted - Neurological Exam Neurological Exam: Alert, Awake - Psychiatric Exam Psychiatric exam: Normal Affect, Normal Mood - Skin Skin Exam: Dry, Intact, Normal Color, Warm Assessment and Plan - Assessment and Plan (Free Text) Assessment: 31M presents to ED s/p seizure likely 2/2 to alcohol abuse. Plan: Alcohol Abuse/Withdrawal admit to ICU D50 500ml/hr CBC/CMP UDS negative Multi-Vit Thiamine Folic Acid Ativan 2mg PRN Abdominal US - please see full report -fatty liver vs parenchymal disease Septic Shock CBC- leukocytosis Blood culture - No Growth in 24hrs Urine culture No Growth MRSA screen VBG -respiratory alkalosis on admission VBG -improving -pO2 33, pCO2 40, HCO3 22, pH 7.36, Lactate 4.4 Aztreonam in the ED ID Consult - Dr. Clarke, appreciate recs -Vancomycin and Rocephin pending blood and urine cx, HIV negative Hep Panel negative Seizures Keppra 500mg q12 Head CT - please see full report -No Acute findings, with evidence of chronic ischemic changes Neuro Consult - Dr. Ashok Ruffin, appreciate recs GI Bleed Protonix GI Consult Dr. Rm, appreciate recs -advance diet to clear liq, no evidence of GI bleed\ -Hgb stable at 11.2, follow Hct -continue PPI Electrolyte Abnormalities Renal Consult Dr. Chirinos -Hypotonic Hyponatremia -Hypokalemia -Acid/Base Dist -Lactic Acidosis -Alcohol Abuse <Ayala Tovar - Last Filed: 01/01/17 12:14> Objective - Vital Signs/Intake and Output Vital Signs (last 24 hours): Temp Pulse Resp BP Pulse Ox 98.3 F 65 16 139/103 H 100 01/01/17 08:00 01/01/17 09:00 01/01/17 09:00 01/01/17 07:00 01/01/17 07:40 Intake and Output: 01/01/17 01/01/17 06:59 18:59 Intake Total 4130 0.2 Output Total 4300 Balance -170 0.2 - Medications Medications: Current Medications Folic Acid (Folic Acid) 1 mg PO DAILY [facility] Last Admin: 01/01/17 09:25 Dose: 1 mg Dexmedetomidine HCl (Precedex 4 Mcg/Ml (100 Ml)) 400 mcg in 100 mls @ 10.319 mls/hr IV .Q9H42M PRN; Protocol; 0.7 MCG/KG/HR PRN Reason: Agitation Last Admin: 01/01/17 11:37 Dose: 0.2 mcg/kg/hr, 2.948 mls/hr Sodium Chloride (Sodium Chloride 0.9%) 1,000 mls @ 500 mls/hr IV .Q2H JESUS Stop: 01/02/17 10:15 Last Admin: 01/01/17 10:30 Dose: 500 mls/hr Multivitamins/Minerals (Therapeutic-M Tab) 1 tab PO DAILY [facility]ESUS Last Admin: 01/01/17 09:25 Dose: 1 tab Pantoprazole Sodium (Protonix Inj) 40 mg IVP Q12 JESUS Thiamine HCl (Vitamin B1 Tab) 100 mg PO DAILY [facility] Last Admin: 01/01/17 09:25 Dose: 100 mg Thiamine HCl (Vitamin B1 Inj) 100 mg IV DAILY [facility]US Last Admin: 12/31/16 11:07 Dose: 100 mg - Labs Labs: 01/01/17 05:30 01/01/17 05:30 PT 12.6 Seconds (9.9-11.8) H 12/29/16 07:14 INR 1.17 (0.93-1.08) H 12/29/16 07:14 APTT 28.7 Seconds (23.7-30.8) 12/29/16 07:14 Attending/Attestation - Attestation I have personally seen and examined this patient.: Yes I have fully participated in the care of the patient.: Yes I have reviewed all pertinent clinical information, including history, physical exam and plan: Yes Notes (Text): I have seen and examined patient at bedside. Agree with the above note with the following additions/ exceptions: This is 31 year old Yoruba speaking male with history of alcohol abuse, history of having seizures x6 who was brought in ED for evaluation of seizure, headache, dizziness, bloody vomiting and sorethroat. Upon admission he was found to be in septic shock and was admitted to ICU. He also had hematemesis , hyponatremia, hypochloremia and was going thru mild alcohol withdrawal syndrome. Today he appears comfortable. Awake and oriented x3. Denies any complaints other than weakness and sore throat. Leukocytosis and elevated lactic acid was most likely reactive. Procal normal. CXR normal. Discussed with ID. Antibiotics stopped. CT head showed chronic ischemic changes. 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 EEG pending. As this episode of seizure was in fact 7th seizure, keppra was started. Hyponatremia most likely due to volume depletion and poor dietary intake. Today sodium was corrected too quickly therefore D5W and desmopressin was started. Discussed with Renal. No further episodes of hematemesis. Patient is still npo for possible EGD. Continue potonix and octreotide drips. LFTs are elevated. Hep panel and HIV negative. Dr Ayala Tovar
[2016-12-30 15:46] LABS: BASO # 0.01 K/mm3 (0.0-2.0); BASO % 0.1 % (0.0-3.0); EOS # 0.1 (0.0-0.7); EOS % 0.9 % (1.5-5.0); GRAN # 5.72 (1.4-6.5); GRAN % 63.6 % (50.0-68.0); HEMATOCRIT 30.2 % (42.0-52.0); LYMPH # 2.6 (1.2-3.4); LYMPH % 29.2 % (22.0-35.0); MEAN CELL VOLUME 82.1 fL (80.0-105.0); MEAN CORPUSCULAR HEMOGLOBIN 30.2 pg (25.0-35.0); MEAN CORPUSCULAR HGB CONC 36.8 g/dl (31.0-37.0); MEAN PLATELET VOLUME 9.8 fl (7.0-11.0); MONO # 0.6 (0.1-0.6); MONO % 6.2 % (1.0-6.0); PLATELET COUNT 116 10^3/uL (120.0-450.0); RED CELL DISTRIBUTION WIDTH 12.7 % (11.5-14.5)
[2016-12-30 15:47] LABS: CARBON DIOXIDE 22 mmol/L (21-33); CHLORIDE 89 mmol/L (98-107); GFR AFRICAN-AMERICAN > 60; GLUCOSE,RANDOM 119 mg/dL (70-110); POTASSIUM 3.5 mmol/L (3.6-5.0); SODIUM 121 mmol/L (132-148)
[2016-12-30 15:48] LABS: BLOOD UREA NITROGEN < 2 mg/dL (7-21)
--- NOTE | 2016-12-30 15:48 | PN ---
DATE: 12/30/2016 A 31-year-old male with past medical history of alcohol abuse, admitted with severe hyponatremia afte r reportedly having a witnessed seizure at home. Nephrology seeing patient for the same. The patient today reports feeling well. Denies any shortness of breath, urinating well. PHYSICAL EXAMINATION: VITAL SIGNS: This morning, blood pressure 133/71, heart rate 104, respirations 18, temperature 97.4, O2 sat 95% on room air. GENERAL: No distress, conversing coherently in full sentences, alert and oriented x 3. HEENT: Moist mucous membranes. Nonicteric. CHEST: Clear to auscultation bilaterally. No rales, no rhonchi. No wheezes. HEART: S1, S2 normal, no murmurs, no gallops, no rubs. ABDOMEN: Soft, nontender, nondistended. GENITOURINARY: No bladder distention. EXTREMITIES: No leg edema. NEUROLOGIC: No tremor noted. PSYCHIATRIC: Normal mood, normal affect. LABORATORY DATA: This morning, CBC: WBC 8.3, hemoglobin 11.2, hematocrit 29.9, platelets 114. Chem istry panel: Sodium 127, potassium 2.6, chloride 91, bicarbonate 26, BUN 2, creatinine 0.6, glucose 133, calcium 7.4, phosphorus 0.9, albumin 3.8. Repeat electrolytes later on this morning: Sodium 12 9, potassium 3.6. ASSESSMENT: 1. Severe hypotonic hyponatremia secondary to volume depletion in the setting of inadequate solute i ntake while vomiting and consuming only alcoholic beverages. High urine osmolality is consistent wit h volume depletion. Problem now is that sodium has corrected too rapidly and need to urgently lower serum sodium. The patient's D5W increased from 250 mL per hour to 500 mL per hour and given a dose o f 4 mcg of desmopressin IV this morning. Goal of serum sodium increase should be no more than 6-8 mE q per liter over a 24-hour period. We will aim to get patient into the low to mid 120s by early this evening. 2. Hypokalemia. Correction of hypokalemia is also contributing to rapid rise in serum sodium. Pota ssium now corrected at 3.6. We will hold additional K riders. 3. Hypophosphatemia in the setting of poor p.o. intake. The patient currently getting potassium verónica sphate IV. Continue for now. 4. Acid base disturbance. The patient presented with metabolic alkalosis secondary to profuse vomit ing and superimposed increased anion gap metabolic acidosis due to lactic acidosis. Metabolic alkalo sis has corrected secondary to volume repletion. Anion gap is only mildly elevated now holding addit ional volume repletion in the setting of rapid correction of hyponatremia. 5. Alcohol abuse. The patient counseled on need for abstinence. Alcohol abuse is an additional ris k factor for developing osmotic demyelination in hyponatremic patient. No signs of alcohol withdrawa l. Monitor. Critical care time spent in assessing patient's electrolyte status, examining patient, discussion wit h critical care team and repeated followup of electrolytes, over 1 hour. Jhoan Chirinos MD cc: [id number] TT: 12/30/2016 13:12:12 Confirmation # [id number] Dictation # [id number] amber
[2016-12-30] MEDS ORDERED: Gadodiamide 287 MG/ML VIAL (15ML) IV ONE (16:39)
--- NOTE | 2016-12-30 17:14 | CP.PCM.PN ---
Subjective - Date & Time of Evaluation Date of Evaluation: 12/30/16 Time of Evaluation: 08:20 - Subjective Subjective: Comfortable, afebrile, not in distress, feeling better. Objective - Vital Signs/Intake and Output Vital Signs (last 24 hours): Temp Pulse Resp BP Pulse Ox 98.6 F 82 17 145/90 100 12/30/16 12:00 12/30/16 16:00 12/30/16 16:00 12/30/16 16:00 12/30/16 16:00 Intake and Output: 12/30/16 12/30/16 06:59 18:59 Intake Total 3700 Output Total 2800 Balance 900 - Medications Medications: Current Medications Folic Acid (Folic Acid) 1 mg PO DAILY JESUS Octreotide Acetate 1,250 mcg/ (Dextrose) 252.5 mls @ 5.05 mls/hr IV .Q24H JESUS; 25 MCG/HR PRN Reason: Protocol Last Admin: 12/29/16 09:23 Dose: 25 mcg/hr, 5.05 mls/hr Pantoprazole Sodium (Protonix 40mg Ivpb) 40 mg in 100 mls @ 20 mls/hr IVPB .Q5H JESUS Last Admin: 12/30/16 14:51 Dose: 20 mls/hr Levetiracetam (Keppra 500mg Ivpb) 500 mg in 100 mls @ 460 mls/hr IVPB Q12 JESUS Last Admin: 12/30/16 10:12 Dose: 460 mls/hr Potassium Chloride (Potassium Chloride 10 Meq/100 Ml) 10 meq in 100 mls @ 100 mls/hr IVPB Q2H JESUS Stop: 12/30/16 17:59 Last Admin: 12/30/16 17:04 Dose: 100 mls/hr Lorazepam (Ativan) 2 mg IVP Q2H PRN; Protocol PRN Reason: Seizure activity Multivitamins/Minerals (Therapeutic-M Tab) 1 tab PO DAILY JESUS Last Admin: 12/30/16 12:20 Dose: 1 tab Sodium Chloride (Sodium Chloride Tab) 2 gm PO Q8H JESUS Last Admin: 12/30/16 17:04 Dose: 2 gm Thiamine HCl (Vitamin B1 Tab) 100 mg PO DAILY JESUS - Labs Labs: 12/30/16 15:15 12/30/16 15:15 PT 12.6 Seconds (9.9-11.8) H 12/29/16 07:14 INR 1.17 (0.93-1.08) H 12/29/16 07:14 APTT 28.7 Seconds (23.7-30.8) 12/29/16 07:14 - Constitutional Appears: Non-toxic, No Acute Distress - Head Exam Head Exam: NORMAL INSPECTION - ENT Exam ENT Exam: Mucous Membranes Moist - Neck Exam Neck Exam: absent: Lymphadenopathy, Meningismus - Respiratory Exam Respiratory Exam: Decreased Breath Sounds - Cardiovascular Exam Cardiovascular Exam: +S1, +S2 - GI/Abdominal Exam GI & Abdominal Exam: Soft. absent: Tenderness Assessment and Plan - Assessment and Plan (Free Text) Plan: Assessment Systemic Inflammatory Response Syndrome, consider reactive due to acute stressful event from seizure episode in a patient with hyponatremia and hypochloremia probably from dehydration, no evidence of sepsis identified alcohol abuse Plan blood and urine cx negative, PCT normal; reviewed CXR which is normal Will monitor clinically off antibiotics; discussed with Dr. Catalan
--- NOTE | 2016-12-30 17:24 | MRI ---
PROCEDURE: MRI BRAIN WITH AND WITHOUT CONTRAST HISTORY: rule out brain lesion COMPARISON: Comparison is made to the previous CT dated 12/29/2016 TECHNIQUE: Multiplanar, multisequence MR images of the brain were obtained with and without intravenous contrast enhancement. FINDINGS: HEMORRHAGE: None DWI: No evidence of an acute or early subacute infarction. BRAIN PARENCHYMA: There is a well defined hyperintense T2 and hypointense T1 and FLAIR signal lesion at the left basal ganglia measures 12 millimeter in the largest diameter. This lesion demonstrate rim of hyperintense in the T2 GRE and demonstrates also adjacent very mild edema. Mild to moderate atrophy for the patient's age is noted. ENHANCEMENT: No abnormal intracranial enhancement. VENTRICLES: Unremarkable. No hydrocephalus. CRANIUM: Unremarkable. ORBITS: Grossly unremarkable. PARANASAL SINUSES/MASTOIDS: Clear VASCULAR SYSTEM: Skull base flow voids intact. OTHER FINDINGS: None . IMPRESSION: No evidence of acute infarct or acute pathology in the brain. 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 No evidence of enhancing lesion or abnormal brain enhancement in this study. [id number] atrophy for the patient's age.
--- NOTE | 2016-12-30 17:36 | CARD ---
APPROVED REPORT EXAM: Two-dimensional and M-mode echocardiogram with Doppler and color Doppler. INDICATION Cardiomyopathy 2D DIMENSIONS Left Atrium (2D)3.3 (1.6-4.0cm)IVSd0.9 (0.7-1.1cm) LVDd3.3 (3.9-5.9cm)PWd1.0 (0.7-1.1cm) LVDs2.2 (2.5-4.0cm)FS (%) 33.6 % LVEF (%)63.6 (>50%) M-Mode DIMENSIONS Aortic Root2.80 (2.2-3.7cm)Aortic Cusp Exc.1.70 (1.5-2.0cm) Aortic Valve AoV Peak Whpbuvsh359.0cm/Dhara Peak GR.13mmHg Mitral Valve MV E Vdzohvab15.0cm/sMV A Keeyrcoi39.7cm/sE/A ratio1.2 TDI Lateral E' Peak V12.40cm/sMedial E' Peak V9.07cm/sE/Lateral E'6.4 E/Medial E'8.7 Pulmonary Valve PV Peak Wybvmnlt36.8cm/sPV Peak Grad.3mmHg Tricuspid Valve TR Peak Dfijnvkn035du/sRAP [id number] Peak Gr.16mmHg [id number] LEFT VENTRICLE The left ventricle is normal size. There is normal left ventricular wall thickness. The left ventricular function is normal.EF-60-65% There is normal LV segmental wall motion. The left ventricular diastolic function is normal. No left ventricle thrombus noted on this study. There is no ventricular septal defect visualized. There is no left ventricular aneurysm. There is no mass noted in the left ventricle. RIGHT VENTRICLE The right ventricle is normal size. There is normal right ventricular wall thickness. The right ventricular systolic function is normal. ATRIA The left atrium size is normal. The right atrium size is normal. The interatrial septum is intact with no evidence for an atrial septal defect. AORTIC VALVE The aortic valve is normal in structure. No aortic regurgitation is present. There is no aortic valvular stenosis. There is no aortic valvular vegetation. MITRAL VALVE The mitral valve is thickened but opens well. Mitral regurgitation is trace. There is no mitral valve stenosis. There is no evidence of mitral valve prolapse. TRICUSPID VALVE The tricuspid valve is normal in structure. There is trace tricuspid regurgitation. There is no tricuspid valve stenosis. There is no tricuspid valve prolapse or vegetation. PULMONIC VALVE The pulmonary valve is normal in structure. GREAT VESSELS The aortic root is normal in size. The ascending aorta is normal in size. The pulmonary artery is normal. The IVC is normal in size and collapses >50% with inspiration. PERICARDIAL EFFUSION There is no pleural effusion. There is no pericardial effusion. <Conclusion> Normal chamber Size. Ef-60-65% trace MR/TR. RVSP-26 mmof Hg.
--- NOTE | 2016-12-30 17:50 | CP.PCM.PCO ---
Assessment & Plan - Assessment and Plan (Free Text) Assessment: NEURO COMMUNICATION NOTE: NO FURTHER SEIZURE. HAS METABOLIC ENCEPHALOPATHY FROM METABOLIC DERRANGEMENTS C/W KEPPRA C/W TO MONITOR ELECTROLYTES AND CORRECT. EEG SHOWED BCD. NO SEIZURE ACTIVITY WILL SIGN OFF. CHAU MORIN
[2016-12-30 19:55] LABS: CALCIUM 7.2 mg/dL (8.4-10.5); CARBON DIOXIDE 26 mmol/L (21-33); CHLORIDE 87 mmol/L (98-107); GFR AFRICAN-AMERICAN > 60; GLUCOSE,RANDOM 98 mg/dL (70-110); POTASSIUM 3.6 mmol/L (3.6-5.0); SODIUM 122 mmol/L (132-148)
[2016-12-30 20:01] LABS: BLOOD UREA NITROGEN < 2 mg/dL (7-21)
[2016-12-30] MEDS: Octreotide 1,250 MCG in Dextrose 5% In Water 250 ML IV SCH (21:04)
[2016-12-30] MEDS ORDERED: Morphine 2 mg/ml ISec IVP STA (21:31)
[2016-12-30 21:36] LABS: ADD MANUAL DIFF? NO
[2016-12-30 21:41] LABS: BASO # 0.02 K/mm3 (0.0-2.0); BASO % 0.2 % (0.0-3.0); EOS # 0.1 (0.0-0.7); EOS % 0.6 % (1.5-5.0); GRAN # 6.52 (1.4-6.5); GRAN % 66.8 % (50.0-68.0); HEMATOCRIT 31.5 % (42.0-52.0); LYMPH # 2.6 (1.2-3.4); LYMPH % 26.1 % (22.0-35.0); MEAN CELL VOLUME 81.6 fL (80.0-105.0); MEAN CORPUSCULAR HEMOGLOBIN 30.8 pg (25.0-35.0); MEAN CORPUSCULAR HGB CONC 37.8 g/dl (31.0-37.0); MEAN PLATELET VOLUME 9.4 fl (7.0-11.0); MONO # 0.6 (0.1-0.6); MONO % 6.3 % (1.0-6.0); PLATELET COUNT 111 10^3/uL (120.0-450.0); RED CELL DISTRIBUTION WIDTH 12.8 % (11.5-14.5); WHITE BLOOD COUNT 9.8 10^3/ul (4.5-11.0)
--- NOTE | 2016-12-30 21:44 | EEG ---
DATE: 12/30/2016 History of seizure. PAST MEDICAL HISTORY: Alcohol abuse, witnessed seizure at home. MEDICATIONS: Ativan. DESCRIPTION: Background activity of this tracing was composed of 8 cycles per second alpha rhythm, l arge amount of beta activity of 16-20 cycles per second was noted in the tracing. Theta activity 5-7 cycles per second was noted in the tracing. Drowsiness was composed of mixed beta and theta activit y. Photic stimulation did not change the record. IMPRESSION: Bilateral cerebral dysfunction, diffuse. Raffi Laly MORIN cc: [id number] TT: 12/30/2016 21:43:34 Confirmation # [id number] Dictation # [id number] jn
[2016-12-31] MEDS ORDERED: Thiamine 100 mg/ml Inj IV STA (00:09)
[2016-12-31 00:28] LABS: BLOOD UREA NITROGEN 2 mg/dL (7-21); CALCIUM 7.5 mg/dL (8.4-10.5); CARBON DIOXIDE 23 mmol/L (21-33); CHLORIDE 89 mmol/L (98-107); GFR AFRICAN-AMERICAN > 60; GLUCOSE,RANDOM 113 mg/dL (70-110); POTASSIUM 3.3 mmol/L (3.6-5.0); SODIUM 123 mmol/L (132-148)
[2016-12-31] MEDS: levETIRAcetam 500mg IVPB 500 MG/100 ML BAG IVPB SCH ×4 (00:28→21:11)
[2016-12-31] MEDS: Pantoprazole 40mg/100ml IVPB 40 MG/100 ML BAG IVPB SCH ×5 (02:27→21:12)
[2016-12-31] MEDS: Dexmedetomidine HCl 4mcg/ml 400 MCG/100 ML BOTTLE IV PRN ×2 (02:29→17:17)
[2016-12-31 02:50] LABS: MAGNESIUM 1.8 mg/dL (1.7-2.2); PHOSPHOROUS 1.9 mg/dL (2.5-4.5)
[2016-12-31] MEDS ORDERED: Potassium Phosphate 15 MMOLE in Sodium Chloride 0.9% 250 ML IV SCH (04:23)
[2016-12-31 06:16] LABS: ADD MANUAL DIFF? NO
[2016-12-31 06:30] LABS: ALB/GLOB RATIO 1.4 (1.1-1.8); ALKALINE PHOSPHATASE 58 U/L (38-133); ALT/SGPT 134 U/L (7-56); AST/SGOT 684 U/L (15-59); BILIRUBIN,TOTAL 0.6 mg/dL (0.2-1.3); BLOOD UREA NITROGEN 4 mg/dL (7-21); CALCIUM 7.3 mg/dL (8.4-10.5); CARBON DIOXIDE 28 mmol/L (21-33); CHLORIDE 94 mmol/L (98-107); GFR AFRICAN-AMERICAN > 60; GLUCOSE,RANDOM 100 mg/dL (70-110); POTASSIUM 3.3 mmol/L (3.6-5.0); SODIUM 128 mmol/L (132-148); TOTAL PROTEIN 6.4 g/dL (5.8-8.3)
[2016-12-31 06:38] LABS: BASO # 0.01 K/mm3 (0.0-2.0); BASO % 0.1 % (0.0-3.0); EOS # 0.1 (0.0-0.7); EOS % 0.7 % (1.5-5.0); GRAN # 4.37 (1.4-6.5); GRAN % 62.7 % (50.0-68.0); HEMATOCRIT 28.6 % (42.0-52.0); LYMPH # 2.1 (1.2-3.4); LYMPH % 29.9 % (22.0-35.0); MEAN CELL VOLUME 82.7 fL (80.0-105.0); MEAN CORPUSCULAR HEMOGLOBIN 30.9 pg (25.0-35.0); MEAN CORPUSCULAR HGB CONC 37.4 g/dl (31.0-37.0); MEAN PLATELET VOLUME 9.4 fl (7.0-11.0); MONO # 0.5 (0.1-0.6); MONO % 6.6 % (1.0-6.0); PLATELET COUNT 122 10^3/uL (120.0-450.0); RED CELL DISTRIBUTION WIDTH 12.9 % (11.5-14.5)
--- NOTE | 2016-12-31 06:38 | CP.PCM.PN ---
Subjective - Date & Time of Evaluation Date of Evaluation: 12/31/16 Time of Evaluation: 01:00 - Subjective Subjective: Patient last night was found to be agitated and was trying to run away from the icu window, Lao speaking nurse called from the other floor for interpretation he was found to be confused, but still knew he was in the hospital and wanted to call his family to take him home, patient at this time also pulled out his iv lines and thiago toney was also called. Patient calmed down when he was explained that no meds will be given and he could rest in his room on the chair till the family comes. When niece and aunt arrived patient got agitated again, later with the help of family patient agreed to have iv line and meds. Ativan was given as patient was tremulous and tachycardic. Patient didn't respond to 6 mg of iv ativan given in less then 1 hr , still agitated and, tremulous, and tachycardic in 150's/min, then precidex was stared. Thiamine switched to iv. IVF and prior treatment then continued. Objective - Vital Signs/Intake and Output Vital Signs (last 24 hours): Temp Pulse Resp BP Pulse Ox 97.6 F 67 16 94/49 L 100 12/31/16 04:00 12/31/16 04:50 12/31/16 04:50 12/31/16 04:21 12/31/16 04:50 Intake and Output: 12/30/16 12/31/16 18:59 06:59 Intake Total 5520 676.0 Output Total 2400 1350 Balance 3120 -674.0 - Medications Medications: Current Medications Folic Acid (Folic Acid) 1 mg PO DAILY JESUS Octreotide Acetate 1,250 mcg/ (Dextrose) 252.5 mls @ 5.05 mls/hr IV .Q24H JESUS; 25 MCG/HR PRN Reason: Protocol Last Admin: 12/30/16 21:04 Dose: 25 mcg/hr, 5.05 mls/hr Pantoprazole Sodium (Protonix 40mg Ivpb) 40 mg in 100 mls @ 20 mls/hr IVPB .Q5H JESUS Last Admin: 12/31/16 06:12 Dose: 20 mls/hr Levetiracetam (Keppra 500mg Ivpb) 500 mg in 100 mls @ 460 mls/hr IVPB Q12 JESUS Last Admin: 12/31/16 01:44 Dose: Not Given Dexmedetomidine HCl (Precedex 4 Mcg/Ml (100 Ml)) 400 mcg in 100 mls @ 10.319 mls/hr IV .Q9H42M PRN; Protocol; 0.7 MCG/KG/HR PRN Reason: Agitation Last Titration: 12/31/16 06:11 Dose: 0.2 mcg/kg/hr, 2.948 mls/hr Potassium Phosphate 15 mmole/ (Sodium Chloride) 255 mls @ 50 mls/hr IV .Q5H6M JESUS Last Admin: 12/31/16 05:11 Dose: 50 mls/hr Lorazepam (Ativan) 2 mg IVP Q2H PRN; Protocol PRN Reason: Seizure activity Last Admin: 12/31/16 01:43 Dose: 2 mg Multivitamins/Minerals (Therapeutic-M Tab) 1 tab PO DAILY JESUS Last Admin: 12/30/16 12:20 Dose: 1 tab Sodium Chloride (Sodium Chloride Tab) 2 gm PO Q8H JESUS Last Admin: 12/31/16 00:44 Dose: Not Given Thiamine HCl (Vitamin B1 Tab) 100 mg PO DAILY JESUS - Labs Labs: 12/30/16 21:35 12/30/16 23:45 PT 12.6 Seconds (9.9-11.8) H 12/29/16 07:14 INR 1.17 (0.93-1.08) H 12/29/16 07:14 APTT 28.7 Seconds (23.7-30.8) 12/29/16 07:14
[2016-12-31] MEDS ORDERED: Potassium Chloride 40 mEq/30 ml LIQ UD PO ONE (06:39)
[2016-12-31] MEDS ORDERED: Desmopressin 4 mcg/ml Inj (10 ml) SC ONE (07:17)
[2016-12-31] MEDS ORDERED: Sodium Chloride 0.9% 500 ML IV STA (07:51)
[2016-12-31] MEDS ORDERED: Sodium Chloride 0.9% 1,000 ML IV STA ×3 (08:26→09:40)
--- NOTE | 2016-12-31 09:00 | PN ---
DATE: 12/31/2016 SUBJECTIVE: The patient seen earlier this morning in the ICU. The patient's status is unchanged, mcfarlane s no fevers. PHYSICAL EXAMINATION: VITAL SIGNS: Temperature is 98, blood pressure is 100/40. HEENT: Unremarkable. NECK: Supple. LUNGS: Have decreased breath sounds. HEART: Normal S1, S2. ABDOMEN: Soft. LABORATORY DATA: Reveals a white count of 7, hemoglobin of 10, platelets of 122. Chemistries are no ely. The LFTs are elevated. CK is elevated. Urinalysis is reviewed. Toxicology is negative. Sero logy: HIV is negative. Hepatitis profile is negative. Microbiology reveals nasal MRSA is negative. Urine culture has no growth. The blood cultures no growth at 48 hours. Review of the medications reveals the patient to be off of antibiotics. ASSESSMENT AND PLAN: This is a 31-year-old male with systemic inflammatory response syndrome, episod e of seizures, off of antibiotics. Cultures negative, procalcitonin is normal. MRI of the head was done yesterday and it was done with and without contrast with no evidence of enhancing lesions, abnor mal brain enhancement in this study. No evidence of acute infarct or acute pathology. Well defined lesions seen at the left basal ganglia, representing an old infarct and no acute changes. ____ n nikki is reviewed. Dr. Ruffin's communication report is reviewed. The EEG showed no seizure activity, as per Dr. Ruffin. Will follow with you. Mathew Carrillo MD cc: [id number] TT: 12/31/2016 09:00:10 Confirmation # [id number] Dictation # [id number]
[2016-12-31] MEDS ORDERED: Thiamine 100 mg/ml Inj IV SCH (10:00)
--- NOTE | 2016-12-31 12:09 | CP.CCUPN ---
<Marilou Durbin - Last Filed: 12/31/16 13:35> CCU Subjective - Physician Review Events Since Last Encounter (Free Text): 12/31/16 12:06 Per nursing- pt w/agitation overnight, tried to use pole to break window to get out. Family was called to calm pt down. Pt requiring sedation due to agitation - was given Ativan without resolution, placed on Precedex drip for safety and 1: 1 Subjective (Free Text): 12/30/16 11:24 Critical care progress note for Dr. Manuel Durbin, PGY-1 Pt S & E at bedside. Pt reports no problems overnight. Slept ok. Denies N/V/F, SOB, CP, abdominal pain, PAREDES, back pain, hematemesis, hematochezia. 12/31/16 12:06 Critical care progress note for Dr. Manuel Durbin, PGY-1 Pt S & E at bedside. Pt awake, verbal, not oriented this AM. Denies N/V/F, SOB, CP, abdominal pain, PAREDES, back pain, bleeding. Currently calm, sitting in bed. CCU Objective - Vital Signs / Intake & Output Intake and Output (Last 8hrs): Intake & Output 12/30/16 12/31/16 12/31/16 22:59 06:59 14:59 Intake Total 5772.5 423.5 Output Total 2400 1350 Balance 3372.5 -926.5 Intake: IV 4052.5 423.5 LAC 3500 Left Forearm 360 RAC 300 Oral 820 Other 900 Output: Urine 2400 1350 Urethral (Rosen) 1350 Urine, Voided 2400 Other: Voiding Method Urinal # Bowel Movements 1 - Physical Exam Head: Positive for: Atraumatic, Normocephalic Pupils: Positive for: PERRL Extroacular Muscles: Positive for: EOMI Conjunctiva: Positive for: Normal Ears: Positive for: Normal Mouth: Positive for: Dry, Normal Lips, Normal Tounge Nose (External): Positive for: Atraumatic Neck: Positive for: Normal Range of Motion Respiratory/Chest: Positive for: Clear to Auscultation, Good Air Exchange. Negative for: Respiratory Distress, Accessory Muscle Use, Wheezes, Rales, Rhonchi, Tachypneic Cardiovascular: Positive for: Regular Rate and Rhythm, Normal S1, S2. Negative for: Murmurs Abdomen: Positive for: Normal Bowel Sounds. Negative for: Tenderness, Distention, Peritoneal Signs Genitourinary Male: Positive for: Other (Rosen catheter in place) Back: Positive for: Normal Inspection Upper Extremity: Positive for: Normal Inspection, NORMAL PULSES. Negative for: Cyanosis, Edema, Swelling Lower Extremity: Positive for: Normal Inspection, NORMAL PULSES. Negative for: Edema, Swelling Neurological: Positive for: GCS=15, CN II-XII Intact, Speech Normal Skin: Positive for: Warm, Dry, Normal Color. Negative for: Rashes Psychiatric: Positive for: Alert, Oriented x 3, Normal Insight, Normal Concentration - Medications Active Medications: Active Medications Generic Name Dose Route Start Last Admin Trade Name Freq PRN Reason Stop Dose Admin Folic Acid 1 mg 12/31/16 10:00 Folic Acid PO DAILY JESUS Octreotide Acetate 1,250 mcg/ 252.5 mls @ 5.05 mls/hr 12/29/16 08:45 21:04 Dextrose IV 25 mcg/hr .Q24H JESUS 5.05 mls/hr Protocol Administration 25 MCG/HR Pantoprazole Sodium 40 mg in 100 mls @ 20 mls/hr 12/29/16 08:45 12/31/16 11: 10 Protonix 40mg Ivpb IVPB 20 mls/hr .Q5H JESUS Administration Levetiracetam 500 mg in 100 mls @ 460 mls/hr 12/29/16 22:00 12/31/16 11:07 Keppra 500mg Ivpb IVPB 460 mls/hr Q12 JESUS Administration Dexmedetomidine HCl 400 mcg in 100 mls @ 10.319 mls/hr 12/31/16 02:10 06:11 Precedex 4 Mcg/Ml (100 Ml) IV 0.2 mcg/kg/hr .Q9H42M PRN 2.948 mls/hr Agitation Titration Protocol 0.7 MCG/KG/HR Potassium Phosphate 15 mmole/ 255 mls @ 50 mls/hr 12/31/16 04:23 12/31/16 05: 11 Sodium Chloride IV 50 mls/hr .Q5H6M JESUS Administration Lorazepam 2 mg 12/30/16 06:45 12/31/16 01:43 Ativan IVP 2 mg Q2H PRN Administration Seizure activity Protocol Multivitamins/Minerals 1 tab 12/30/16 11:15 12/30/16 12:20 Therapeutic-M Tab PO 1 tab DAILY JESUS Administration Thiamine HCl 100 mg 12/31/16 10:00 Vitamin B1 Tab PO DAILY JESUS Thiamine HCl 100 mg 12/31/16 10:00 12/31/16 11:07 Vitamin B1 Inj IV 100 mg DAILY JESUS Administration - Patient Studies Lab Studies: Microbiology Studies 12/29/16 09:30 MRSA Culture (Admit) - Final Nose MRSA NOT DETECTED 12/29/16 08:02 Urine Culture - Final Urine,Clean Catch No Growth (<1,000 CFU/ML) Lab Studies 12/31/16 12/31/16 12/31/16 Range/Units 08:30 06:00 06:00 WBC 7.0 D (4.5-11.0) 10^3/ul RBC 3.46 L (3.5-6.1) 10^6/uL Hgb 10.7 L (14.0-18.0) gm/dL Hct 28.6 L (42.0-52.0) % MCV 82.7 (80.0-105.0) fL MCH 30.9 (25.0-35.0) pg MCHC 37.4 H (31.0-37.0) g/dl RDW 12.9 (11.5-14.5) % Plt Count 122 (120.0-450.0) 10^3/uL MPV 9.4 (7.0-11.0) fl Gran % 62.7 (50.0-68.0) % Lymph % (Auto) 29.9 (22.0-35.0) % [place] % (Auto) 6.6 H (1.0-6.0) % Eos % (Auto) 0.7 L (1.5-5.0) % Baso % (Auto) 0.1 (0.0-3.0) % Gran # 4.37 (1.4-6.5) Lymph # 2.1 (1.2-3.4) [place] # 0.5 (0.1-0.6) Eos # 0.1 (0.0-0.7) Baso # 0.01 (0.0-2.0) K/mm3 Sodium 128 L (132-148) mmol/L Potassium 3.3 L (3.6-5.0) mmol/L Chloride 94 L (95-110) mmol/L Carbon Dioxide 28 (21-33) mmol/L Anion Gap 9 L (10-20) BUN 4 L (7-21) mg/dL Creatinine 0.6 (0.5-1.4) mg/dL Est GFR ( Amer) > 60 Est GFR (Non-Af Amer) > 60 Random Glucose 100 (70-110) mg/dL Calcium 7.3 L (8.4-10.5) mg/dL Phosphorus (2.5-4.5) mg/dL Magnesium (1.7-2.2) mg/dL Total Bilirubin 0.6 (0.2-1.3) mg/dL AST 684 H (15-59) U/L ALT 134 H (7-56) U/L Alkaline Phosphatase 58 (38-133) U/L Total Creatine Kinase 06894 H (35-230) U/L CK-MB (CK-2) 2.9 (0.0-3.6) ng/mL CK-MB (CK-2) % Cancelled Total Protein 6.4 (5.8-8.3) g/dL Albumin 3.7 (3.0-4.8) g/dL Globulin 2.7 gm/dL Albumin/Globulin Ratio 1.4 (1.1-1.8) Urine Osmolality 44 L (50-645) mosm/kg Ur Random Sodium < 5 meq/L 12/31/16 12/30/16 12/30/16 Range/Units 00:05 23:45 21:35 WBC 9.8 (4.5-11.0) 10^3/ul RBC 3.86 (3.5-6.1) 10^6/uL Hgb 11.9 L (14.0-18.0) gm/dL Hct 31.5 L (42.0-52.0) % MCV 81.6 (80.0-105.0) fL MCH 30.8 (25.0-35.0) pg MCHC 37.8 H (31.0-37.0) g/dl RDW 12.8 (11.5-14.5) % Plt Count 111 L (120.0-450.0) 10^3/uL MPV 9.4 (7.0-11.0) fl Gran % 66.8 (50.0-68.0) % Lymph % (Auto) 26.1 (22.0-35.0) % [place] % (Auto) 6.3 H (1.0-6.0) % Eos % (Auto) 0.6 L (1.5-5.0) % Baso % (Auto) 0.2 (0.0-3.0) % Gran # 6.52 H (1.4-6.5) Lymph # 2.6 (1.2-3.4) [place] # 0.6 (0.1-0.6) Eos # 0.1 (0.0-0.7) Baso # 0.02 (0.0-2.0) K/mm3 Sodium 123 L (132-148) mmol/L Potassium 3.3 L (3.6-5.0) mmol/L Chloride 89 L (95-110) mmol/L Carbon Dioxide 23 (21-33) mmol/L Anion Gap 14 (10-20) BUN 2 L (7-21) mg/dL Creatinine 0.5 (0.5-1.4) mg/dL Est GFR ( Amer) > 60 Est GFR (Non-Af Amer) > 60 Random Glucose 113 H (70-110) mg/dL Calcium 7.5 L (8.4-10.5) mg/dL Phosphorus 1.9 L (2.5-4.5) mg/dL Magnesium 1.8 (1.7-2.2) mg/dL Total Bilirubin (0.2-1.3) mg/dL AST (15-59) U/L ALT (7-56) U/L Alkaline Phosphatase (38-133) U/L Total Creatine Kinase (35-230) U/L CK-MB (CK-2) (0.0-3.6) ng/mL CK-MB (CK-2) % Total Protein (5.8-8.3) g/dL Albumin (3.0-4.8) g/dL Globulin gm/dL Albumin/Globulin Ratio (1.1-1.8) Urine Osmolality (50-645) mosm/kg Ur Random Sodium meq/L 05/26/17 05/26/17 05/26/17 Range/Units 19:39 16:00 16:00 WBC (4.5-11.0) 10^3/ul RBC (3.5-6.1) 10^6/uL Hgb (14.0-18.0) gm/dL Hct (42.0-52.0) % MCV (80.0-105.0) fL MCH (25.0-35.0) pg MCHC (31.0-37.0) g/dl RDW (11.5-14.5) % Plt Count (120.0-450.0) 10^3/uL MPV (7.0-11.0) fl Gran % (50.0-68.0) % Lymph % (Auto) (22.0-35.0) % [place] % (Auto) (1.0-6.0) % Eos % (Auto) (1.5-5.0) % Baso % (Auto) (0.0-3.0) % Gran # (1.4-6.5) Lymph # (1.2-3.4) [place] # (0.1-0.6) Eos # (0.0-0.7) Baso # (0.0-2.0) K/mm3 Sodium 122 L (132-148) mmol/L Potassium 3.6 (3.6-5.0) mmol/L Chloride 87 L (95-110) mmol/L Carbon Dioxide 26 (21-33) mmol/L Anion Gap 13 (10-20) BUN < 2 L (7-21) mg/dL Creatinine 0.5 (0.5-1.4) mg/dL Est GFR ( Amer) > 60 Est GFR (Non-Af Amer) > 60 Random Glucose 98 (70-110) mg/dL Calcium 7.2 L (8.4-10.5) mg/dL Phosphorus (2.5-4.5) mg/dL Magnesium (1.7-2.2) mg/dL Total Bilirubin (0.2-1.3) mg/dL AST (15-59) U/L ALT (7-56) U/L Alkaline Phosphatase (38-133) U/L Total Creatine Kinase (35-230) U/L CK-MB (CK-2) (0.0-3.6) ng/mL CK-MB (CK-2) % Total Protein (5.8-8.3) g/dL Albumin (3.0-4.8) g/dL Globulin gm/dL Albumin/Globulin Ratio (1.1-1.8) Urine Osmolality 258 (50-645) mosm/kg Ur Random Sodium 82 meq/L 12/30/16 12/30/16 12/30/16 Range/Units 15:15 15:15 12:40 WBC 9.0 (4.5-11.0) 10^3/ul RBC 3.68 (3.5-6.1) 10^6/uL Hgb 11.1 L (14.0-18.0) gm/dL Hct 30.2 L (42.0-52.0) % MCV 82.1 (80.0-105.0) fL MCH 30.2 (25.0-35.0) pg MCHC 36.8 (31.0-37.0) g/dl RDW 12.7 (11.5-14.5) % Plt Count 116 L (120.0-450.0) 10^3/uL MPV 9.8 (7.0-11.0) fl Gran % 63.6 (50.0-68.0) % Lymph % (Auto) 29.2 (22.0-35.0) % [place] % (Auto) 6.2 H (1.0-6.0) % Eos % (Auto) 0.9 L (1.5-5.0) % Baso % (Auto) 0.1 (0.0-3.0) % Gran # 5.72 (1.4-6.5) Lymph # 2.6 (1.2-3.4) [place] # 0.6 (0.1-0.6) Eos # 0.1 (0.0-0.7) Baso # 0.01 (0.0-2.0) K/mm3 Sodium 121 L (132-148) mmol/L Potassium 3.5 L (3.6-5.0) mmol/L Chloride 89 L (95-110) mmol/L Carbon Dioxide 22 (21-33) mmol/L Anion Gap 14 (10-20) BUN < 2 L (7-21) mg/dL Creatinine 0.5 (0.5-1.4) mg/dL Est GFR ( Amer) > 60 Est GFR (Non-Af Amer) > 60 Random Glucose 119 H (70-110) mg/dL Calcium 7.0 L (8.4-10.5) mg/dL Phosphorus (2.5-4.5) mg/dL Magnesium (1.7-2.2) mg/dL Total Bilirubin (0.2-1.3) mg/dL AST (15-59) U/L ALT (7-56) U/L Alkaline Phosphatase (38-133) U/L Total Creatine Kinase (35-230) U/L CK-MB (CK-2) (0.0-3.6) ng/mL CK-MB (CK-2) % Total Protein (5.8-8.3) g/dL Albumin (3.0-4.8) g/dL Globulin gm/dL Albumin/Globulin Ratio (1.1-1.8) Urine Osmolality 256 (50-645) mosm/kg Ur Random Sodium 82 meq/L 05/26/17 Range/Units 11:40 WBC (4.5-11.0) 10^3/ul RBC (3.5-6.1) 10^6/uL Hgb (14.0-18.0) gm/dL Hct (42.0-52.0) % MCV (80.0-105.0) fL MCH (25.0-35.0) pg MCHC (31.0-37.0) g/dl RDW (11.5-14.5) % Plt Count (120.0-450.0) 10^3/uL MPV (7.0-11.0) fl Gran % (50.0-68.0) % Lymph % (Auto) (22.0-35.0) % [place] % (Auto) (1.0-6.0) % Eos % (Auto) (1.5-5.0) % Baso % (Auto) (0.0-3.0) % Gran # (1.4-6.5) Lymph # (1.2-3.4) [place] # (0.1-0.6) Eos # (0.0-0.7) Baso # (0.0-2.0) K/mm3 Sodium 129 L (132-148) mmol/L Potassium 3.6 (3.6-5.0) mmol/L Chloride 96 (95-110) mmol/L Carbon Dioxide 19 L (21-33) mmol/L Anion Gap 18 (10-20) BUN < 2 L (7-21) mg/dL Creatinine 0.6 (0.5-1.4) mg/dL Est GFR ( Amer) > 60 Est GFR (Non-Af Amer) > 60 Random Glucose 109 (70-110) mg/dL Calcium 7.5 L (8.4-10.5) mg/dL Phosphorus (2.5-4.5) mg/dL Magnesium (1.7-2.2) mg/dL Total Bilirubin (0.2-1.3) mg/dL AST (15-59) U/L ALT (7-56) U/L Alkaline Phosphatase (38-133) U/L Total Creatine Kinase (35-230) U/L CK-MB (CK-2) (0.0-3.6) ng/mL CK-MB (CK-2) % Total Protein (5.8-8.3) g/dL Albumin (3.0-4.8) g/dL Globulin gm/dL Albumin/Globulin Ratio (1.1-1.8) Urine Osmolality (50-645) mosm/kg Ur Random Sodium meq/L Laboratory Results - last 24 hr 12/30/16 12/30/16 12/30/16 11:40 12:40 15:15 WBC RBC Hgb Hct MCV MCH MCHC RDW Plt Count MPV Gran % Lymph % (Auto) [place] % (Auto) Eos % (Auto) Baso % (Auto) Gran # Lymph # [place] # Eos # Baso # Sodium 129 L 121 L Potassium 3.6 3.5 L Chloride 96 89 L Carbon Dioxide 19 L 22 Anion Gap 18 14 BUN < 2 L < 2 L Creatinine 0.6 0.5 Est GFR ( Amer) > 60 > 60 Est GFR (Non-Af Amer) > 60 > 60 Random Glucose 109 119 H Calcium 7.5 L 7.0 L Phosphorus Magnesium Total Bilirubin AST ALT Alkaline Phosphatase Total Creatine Kinase CK-MB (CK-2) CK-MB (CK-2) % Total Protein Albumin Globulin Albumin/Globulin Ratio Urine Osmolality 256 Ur Random Sodium 82 12/30/16 12/30/16 12/30/16 15:15 16:00 16:00 WBC 9.0 RBC 3.68 Hgb 11.1 L Hct 30.2 L MCV 82.1 MCH 30.2 MCHC 36.8 RDW 12.7 Plt Count 116 L MPV 9.8 Gran % 63.6 Lymph % (Auto) 29.2 [place] % (Auto) 6.2 H Eos % (Auto) 0.9 L Baso % (Auto) 0.1 Gran # 5.72 Lymph # 2.6 [place] # 0.6 Eos # 0.1 Baso # 0.01 Sodium Potassium Chloride Carbon Dioxide Anion Gap BUN Creatinine Est GFR ( Amer) Est GFR (Non-Af Amer) Random Glucose Calcium Phosphorus Magnesium Total Bilirubin AST ALT Alkaline Phosphatase Total Creatine Kinase CK-MB (CK-2) CK-MB (CK-2) % Total Protein Albumin Globulin Albumin/Globulin Ratio Urine Osmolality 258 Ur Random Sodium 82 12/30/16 12/30/16 12/30/16 19:39 21:35 23:45 WBC 9.8 RBC 3.86 Hgb 11.9 L Hct 31.5 L MCV 81.6 MCH 30.8 MCHC 37.8 H RDW 12.8 Plt Count 111 L MPV 9.4 Gran % 66.8 Lymph % (Auto) 26.1 [place] % (Auto) 6.3 H Eos % (Auto) 0.6 L Baso % (Auto) 0.2 Gran # 6.52 H Lymph # 2.6 [place] # 0.6 Eos # 0.1 Baso # 0.02 Sodium 122 L 123 L Potassium 3.6 3.3 L Chloride 87 L 89 L Carbon Dioxide 26 23 Anion Gap 13 14 BUN < 2 L 2 L Creatinine 0.5 0.5 Est GFR ( Amer) > 60 > 60 Est GFR (Non-Af Amer) > 60 > 60 Random Glucose 98 113 H Calcium 7.2 L 7.5 L Phosphorus Magnesium Total Bilirubin AST ALT Alkaline Phosphatase Total Creatine Kinase CK-MB (CK-2) CK-MB (CK-2) % Total Protein Albumin Globulin Albumin/Globulin Ratio Urine Osmolality Ur Random Sodium 12/31/16 12/31/16 12/31/16 00:05 06:00 06:00 WBC 7.0 D RBC 3.46 L Hgb 10.7 L Hct 28.6 L MCV 82.7 MCH 30.9 MCHC 37.4 H RDW 12.9 Plt Count 122 MPV 9.4 Gran % 62.7 Lymph % (Auto) 29.9 [place] % (Auto) 6.6 H Eos % (Auto) 0.7 L Baso % (Auto) 0.1 Gran # 4.37 Lymph # 2.1 [place] # 0.5 Eos # 0.1 Baso # 0.01 Sodium 128 L Potassium 3.3 L Chloride 94 L Carbon Dioxide 28 Anion Gap 9 L BUN 4 L Creatinine 0.6 Est GFR ( Amer) > 60 Est GFR (Non-Af Amer) > 60 Random Glucose 100 Calcium 7.3 L Phosphorus 1.9 L Magnesium 1.8 Total Bilirubin 0.6 AST 684 H ALT 134 H Alkaline Phosphatase 58 Total Creatine Kinase 72192 H CK-MB (CK-2) 2.9 CK-MB (CK-2) % Cancelled Total Protein 6.4 Albumin 3.7 Globulin 2.7 Albumin/Globulin Ratio 1.4 Urine Osmolality Ur Random Sodium 12/31/16 08:30 WBC RBC Hgb Hct MCV MCH MCHC RDW Plt Count MPV Gran % Lymph % (Auto) [place] % (Auto) Eos % (Auto) Baso % (Auto) Gran # Lymph # [place] # Eos # Baso # Sodium Potassium Chloride Carbon Dioxide Anion Gap BUN Creatinine Est GFR ( Amer) Est GFR (Non-Af Amer) Random Glucose Calcium Phosphorus Magnesium Total Bilirubin AST ALT Alkaline Phosphatase Total Creatine Kinase CK-MB (CK-2) CK-MB (CK-2) % Total Protein Albumin Globulin Albumin/Globulin Ratio Urine Osmolality 44 L Ur Random Sodium < 5 Review of Systems - Review of Systems All systems: reviewed and no additional remarkable complaints except - Constitutional Constitutional: absent: Fever, Chills - EENT Nose/Mouth/Throat: UNREMARKABLE - Cardiovascular Cardiovascular: UNREMARKABLE. absent: Chest Pain - Gastrointestinal Gastrointestinal: UNREMARKABLE. absent: Abdominal Pain, Nausea, Vomiting - Musculoskeletal Musculoskeletal: UNREMARKABLE - Neurological Neurological: Confusion. absent: Abnormal Speech, Headaches - Psychiatric Psychiatric: Behavioral Changes (overnight) Critical Care Progress Note - Extremities/Vascular Does the Patient have a Central Venous Catheter?: No Does the Patient need a Central Venous Catheter?: No Does the Patient have a Rosen Catheter?: Yes Does the Patient need a Rosen Catheter?: Yes Catheter Insertion Criteria: Need for accurate measurement of output in critically ill patient - Prophylaxis GI Prophylaxis GI: PPI - Prophylaxis DVT Prophylaxis DVT: Not Indicated (recent hematemesis) - Nutrition Nutrition: Nutrition Category Date Time Status Liquid Diet [DIET] Diets 12/30/16 Breakfast Ordered Assessment/Plan - Assessment and Plan (Free Text) Assessment: 31M w/PMH sig for ETOH abuse, hx seizures with ETOH use admitted to ICU s/p seizure activity, 1 episode of hematemesis, electrolyte imbalances-severe hyponatemia, hypokalemia, severe hypophosphatemia- need for continued monitoring /correction of imbalances. Pt currently on Precedex for sedation 2/2 agitation. Will continue in ICU for now. Plan: Neuro s/p seizure Possible ETOH withdrawal-agitation overnight with Code Roper called Alert Awake Not Oriented at this time Verbal Cont Keppra 500mg Q12H per neuro Ativan PRN seizure Thiamine Folic acid MV Started on Precedex drip overnight 2/2 agitation CIWA protocol Seizure precautions Aspiration precautions Fall precautions MRI brain- No evidence of acute infarct or acute pathology in the brain. 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 No evidence of enhancing lesion or abnormal brain enhancement in this study. Mild- to-moderate atrophy for the patient's age. EEG w/BCD, no seizure activity Monitor Neuro following- metabolic encephalopathy 2/2 metabolic derangements, c/w Keppra , moniotor lytes/correct, signed off Monitor for further signs of ETOH withdrawal CVS Episodes of tachycardia and bradycardia into 50's Hypotensive BP 75/43 Currently receiving multiple bolus' of IVF Monitor Pulm Episodes of tachypnea Sa02 97% Target SaO2 to keep >94% Stable on RA Monitor GI CLD as per GI Protonix drip Ocreotide drip GI following Nephro Transaminitis AST 684 from 224 ALT 134 from 82 Avoid hepatotoxic drugs On IVF Severe hyponatremia Na now 128 from 123 Hypokalemia K 3.3 Currently receiving K-Phos Will correct PRN Hypophosphatemia Phos 1.9 KPhos 15mmole Hypermagnesemia- resolved Mg 1.8 Receiving IVF bolus' Hypocalcemia Ca 5.6 Calcium carbonate - replacing I/O's Urine osm 256 from 339 Random Na 82 from 76 Target euvolemia Monitor closely Serial BMPs Nephro following Able to urinate on own U/A neg GI following Endo Blood sugar 100 Target euglycemia as per NICE sugar trial ID SIRS, R/O sepsis Afebrile No leukocytosis Lactic Acid 4.4 from 5.4; 8 on admission Cont Rocephin as per ID HIV neg Hep panel neg Urine cxr neg Blood cxr neg x 48H Procalcitonin 0.16 ID following Heme s/p acute episode of hematemesis H/H stable Hgb 11.2 from 11 Hct 29.9 from 29.3 Monitor MSK Rhabdo CK 92, 801 On bolus' of IVF Started IVF@250 Fall precautions Seizure precautions Will monitor GI/DVT ppx Contraindications to VTE ppx due to hematemesis On Protonix drip SCDs Dispo Currently on sedation 2/2 agitation likely 2/2 ETOH withdrawal Monitor lytes Continue ICU care DW attending - Date & Time Date: 12/31/16 Time: 08:00 <La MORIN,Indy H - Last Filed: 12/31/16 13:53> CCU Objective - Vital Signs / Intake & Output Vital Signs (Last 4 hours): Vital Signs Temp Pulse Resp BP Pulse Ox 12/31/16 12:01 109 H 24 75/43 L 97 12/31/16 12:00 97 F L 110 H 11 L 100 12/31/16 11:50 59 L 12 99 12/31/16 11:40 59 L 13 100 12/31/16 11:30 80 13 100 12/31/16 11:20 95 H 11 L 88 L 12/31/16 11:10 56 L 12 100 12/31/16 11:00 56 L 13 97/47 L 100 12/31/16 10:50 56 L 12 100 12/31/16 10:40 57 L 11 L 100 12/31/16 10:30 59 L 12 100 12/31/16 10:20 59 L 13 100 12/31/16 10:10 65 12 100 12/31/16 10:00 75 10 L 129/82 100 12/31/16 09:50 63 12 100 Intake and Output (Last 8hrs): Intake & Output 12/30/16 12/31/16 12/31/16 22:59 06:59 14:59 Intake Total 5772.5 423.5 Output Total 2400 1350 Balance 3372.5 -926.5 Intake: IV 4052.5 423.5 LAC 3500 Left Forearm 360 RAC 300 Oral 820 Other 900 Output: Urine 2400 1350 Urethral (Rosen) 1350 Urine, Voided 2400 Other: Voiding Method Urinal Indwelling Catheter # Bowel Movements 1 - Medications Active Medications: Active Medications Generic Name Dose Route Start Last Admin Trade Name Freq PRN Reason Stop Dose Admin Folic Acid 1 mg 12/31/16 12:30 Folic Acid PO DAILY JESUS Octreotide Acetate 1,250 mcg/ 252.5 mls @ 5.05 mls/hr 12/29/16 08:45 21:04 Dextrose IV 25 mcg/hr .Q24H JESUS 5.05 mls/hr Protocol Administration 25 MCG/HR Pantoprazole Sodium 40 mg in 100 mls @ 20 mls/hr 12/29/16 08:45 12/31/16 11: 10 Protonix 40mg Ivpb IVPB 20 mls/hr .Q5H JESUS Administration Levetiracetam 500 mg in 100 mls @ 460 mls/hr 12/29/16 22:00 12/31/16 11:07 Keppra 500mg Ivpb IVPB 460 mls/hr Q12 JESUS Administration Dexmedetomidine HCl 400 mcg in 100 mls @ 10.319 mls/hr 12/31/16 02:10 06:11 Precedex 4 Mcg/Ml (100 Ml) IV 0.2 mcg/kg/hr .Q9H42M PRN 2.948 mls/hr Agitation Titration Protocol 0.7 MCG/KG/HR Potassium Phosphate 15 mmole/ 255 mls @ 50 mls/hr 12/31/16 04:23 12/31/16 05: 11 Sodium Chloride IV 50 mls/hr .Q5H6M JESUS Administration Sodium Chloride 1,000 mls @ 250 mls/hr 12/31/16 13:45 Sodium Chloride 0.9% IV .Q4H JESUS Lorazepam 2 mg 12/30/16 06:45 12/31/16 01:43 Ativan IVP 2 mg Q2H PRN Administration Seizure activity Protocol Multivitamins/Minerals 1 tab 12/31/16 12:30 Therapeutic-M Tab PO DAILY JESUS Thiamine HCl 100 mg 12/31/16 10:00 Vitamin B1 Tab PO DAILY JESUS Thiamine HCl 100 mg 12/31/16 10:00 12/31/16 11:07 Vitamin B1 Inj IV 100 mg DAILY JESUS Administration - Patient Studies Lab Studies: Microbiology Studies 12/29/16 09:30 MRSA Culture (Admit) - Final Nose MRSA NOT DETECTED Lab Studies 12/31/16 12/31/16 12/31/16 Range/Units 12:20 08:30 06:00 WBC (4.5-11.0) 10^3/ul RBC (3.5-6.1) 10^6/uL Hgb (14.0-18.0) gm/dL Hct (42.0-52.0) % MCV (80.0-105.0) fL MCH (25.0-35.0) pg MCHC (31.0-37.0) g/dl RDW (11.5-14.5) % Plt Count (120.0-450.0) 10^3/uL MPV (7.0-11.0) fl Gran % (50.0-68.0) % Lymph % (Auto) (22.0-35.0) % [place] % (Auto) (1.0-6.0) % Eos % (Auto) (1.5-5.0) % Baso % (Auto) (0.0-3.0) % Gran # (1.4-6.5) Lymph # (1.2-3.4) [place] # (0.1-0.6) Eos # (0.0-0.7) Baso # (0.0-2.0) K/mm3 Sodium 135 128 L (132-148) mmol/L Potassium 3.6 3.3 L (3.6-5.0) mmol/L Chloride 107 94 L (98-107) mmol/L Carbon Dioxide 24 28 (21-33) mmol/L Anion Gap 8 L 9 L (10-20) BUN 3 L 4 L (7-21) mg/dL Creatinine 0.6 0.6 (0.5-1.4) mg/dL Est GFR ( Amer) > 60 > 60 Est GFR (Non-Af Amer) > 60 > 60 Random Glucose 81 100 (70-110) mg/dL Calcium 5.6 L* 7.3 L (8.4-10.5) mg/dL Phosphorus (2.5-4.5) mg/dL Magnesium (1.7-2.2) mg/dL Total Bilirubin 0.6 (0.2-1.3) mg/dL AST 684 H (15-59) U/L ALT 134 H (7-56) U/L Alkaline Phosphatase 58 (38-133) U/L Total Creatine Kinase 78109 H (35-230) U/L CK-MB (CK-2) 2.9 (0.0-3.6) ng/mL CK-MB (CK-2) % Cancelled Total Protein 6.4 (5.8-8.3) g/dL Albumin 3.7 (3.0-4.8) g/dL Globulin 2.7 gm/dL Albumin/Globulin Ratio 1.4 (1.1-1.8) Urine Osmolality 44 L (50-645) mosm/kg Ur Random Sodium < 5 meq/L 12/31/16 12/31/16 12/30/16 Range/Units 06:00 00:05 23:45 WBC 7.0 D (4.5-11.0) 10^3/ul RBC 3.46 L (3.5-6.1) 10^6/uL Hgb 10.7 L (14.0-18.0) gm/dL Hct 28.6 L (42.0-52.0) % MCV 82.7 (80.0-105.0) fL MCH 30.9 (25.0-35.0) pg MCHC 37.4 H (31.0-37.0) g/dl RDW 12.9 (11.5-14.5) % Plt Count 122 (120.0-450.0) 10^3/uL MPV 9.4 (7.0-11.0) fl Gran % 62.7 (50.0-68.0) % Lymph % (Auto) 29.9 (22.0-35.0) % [place] % (Auto) 6.6 H (1.0-6.0) % Eos % (Auto) 0.7 L (1.5-5.0) % Baso % (Auto) 0.1 (0.0-3.0) % Gran # 4.37 (1.4-6.5) Lymph # 2.1 (1.2-3.4) [place] # 0.5 (0.1-0.6) Eos # 0.1 (0.0-0.7) Baso # 0.01 (0.0-2.0) K/mm3 Sodium 123 L (132-148) mmol/L Potassium 3.3 L (3.6-5.0) mmol/L Chloride 89 L (98-107) mmol/L Carbon Dioxide 23 (21-33) mmol/L Anion Gap 14 (10-20) BUN 2 L (7-21) mg/dL Creatinine 0.5 (0.5-1.4) mg/dL Est GFR ( Amer) > 60 Est GFR (Non-Af Amer) > 60 Random Glucose 113 H (70-110) mg/dL Calcium 7.5 L (8.4-10.5) mg/dL Phosphorus 1.9 L (2.5-4.5) mg/dL Magnesium 1.8 (1.7-2.2) mg/dL Total Bilirubin (0.2-1.3) mg/dL AST (15-59) U/L ALT (7-56) U/L Alkaline Phosphatase (38-133) U/L Total Creatine Kinase (35-230) U/L CK-MB (CK-2) (0.0-3.6) ng/mL CK-MB (CK-2) % Total Protein (5.8-8.3) g/dL Albumin (3.0-4.8) g/dL Globulin gm/dL Albumin/Globulin Ratio (1.1-1.8) Urine Osmolality (50-645) mosm/kg Ur Random Sodium meq/L 12/30/16 12/30/16 12/30/16 Range/Units 21:35 19:39 16:00 WBC 9.8 (4.5-11.0) 10^3/ul RBC 3.86 (3.5-6.1) 10^6/uL Hgb 11.9 L (14.0-18.0) gm/dL Hct 31.5 L (42.0-52.0) % MCV 81.6 (80.0-105.0) fL MCH 30.8 (25.0-35.0) pg MCHC 37.8 H (31.0-37.0) g/dl RDW 12.8 (11.5-14.5) % Plt Count 111 L (120.0-450.0) 10^3/uL MPV 9.4 (7.0-11.0) fl Gran % 66.8 (50.0-68.0) % Lymph % (Auto) 26.1 (22.0-35.0) % [place] % (Auto) 6.3 H (1.0-6.0) % Eos % (Auto) 0.6 L (1.5-5.0) % Baso % (Auto) 0.2 (0.0-3.0) % Gran # 6.52 H (1.4-6.5) Lymph # 2.6 (1.2-3.4) [place] # 0.6 (0.1-0.6) Eos # 0.1 (0.0-0.7) Baso # 0.02 (0.0-2.0) K/mm3 Sodium 122 L (132-148) mmol/L Potassium 3.6 (3.6-5.0) mmol/L Chloride 87 L (98-107) mmol/L Carbon Dioxide 26 (21-33) mmol/L Anion Gap 13 (10-20) BUN < 2 L (7-21) mg/dL Creatinine 0.5 (0.5-1.4) mg/dL Est GFR ( Amer) > 60 Est GFR (Non-Af Amer) > 60 Random Glucose 98 (70-110) mg/dL Calcium 7.2 L (8.4-10.5) mg/dL Phosphorus (2.5-4.5) mg/dL Magnesium (1.7-2.2) mg/dL Total Bilirubin (0.2-1.3) mg/dL AST (15-59) U/L ALT (7-56) U/L Alkaline Phosphatase (38-133) U/L Total Creatine Kinase (35-230) U/L CK-MB (CK-2) (0.0-3.6) ng/mL CK-MB (CK-2) % Total Protein (5.8-8.3) g/dL Albumin (3.0-4.8) g/dL Globulin gm/dL Albumin/Globulin Ratio (1.1-1.8) Urine Osmolality (50-645) mosm/kg Ur Random Sodium 82 meq/L 12/30/16 12/30/16 12/30/16 Range/Units 16:00 15:15 15:15 WBC 9.0 (4.5-11.0) 10^3/ul RBC 3.68 (3.5-6.1) 10^6/uL Hgb 11.1 L (14.0-18.0) gm/dL Hct 30.2 L (42.0-52.0) % MCV 82.1 (80.0-105.0) fL MCH 30.2 (25.0-35.0) pg MCHC 36.8 (31.0-37.0) g/dl RDW 12.7 (11.5-14.5) % Plt Count 116 L (120.0-450.0) 10^3/uL MPV 9.8 (7.0-11.0) fl Gran % 63.6 (50.0-68.0) % Lymph % (Auto) 29.2 (22.0-35.0) % [place] % (Auto) 6.2 H (1.0-6.0) % Eos % (Auto) 0.9 L (1.5-5.0) % Baso % (Auto) 0.1 (0.0-3.0) % Gran # 5.72 (1.4-6.5) Lymph # 2.6 (1.2-3.4) [place] # 0.6 (0.1-0.6) Eos # 0.1 (0.0-0.7) Baso # 0.01 (0.0-2.0) K/mm3 Sodium 121 L (132-148) mmol/L Potassium 3.5 L (3.6-5.0) mmol/L Chloride 89 L (98-107) mmol/L Carbon Dioxide 22 (21-33) mmol/L Anion Gap 14 (10-20) BUN < 2 L (7-21) mg/dL Creatinine 0.5 (0.5-1.4) mg/dL Est GFR ( Amer) > 60 Est GFR (Non-Af Amer) > 60 Random Glucose 119 H (70-110) mg/dL Calcium 7.0 L (8.4-10.5) mg/dL Phosphorus (2.5-4.5) mg/dL Magnesium (1.7-2.2) mg/dL Total Bilirubin (0.2-1.3) mg/dL AST (15-59) U/L ALT (7-56) U/L Alkaline Phosphatase (38-133) U/L Total Creatine Kinase (35-230) U/L CK-MB (CK-2) (0.0-3.6) ng/mL CK-MB (CK-2) % Total Protein (5.8-8.3) g/dL Albumin (3.0-4.8) g/dL Globulin gm/dL Albumin/Globulin Ratio (1.1-1.8) Urine Osmolality 258 (50-645) mosm/kg Ur Random Sodium meq/L // Range/Units 12:40 WBC (4.5-11.0) 10^3/ul RBC (3.5-6.1) 10^6/uL Hgb (14.0-18.0) gm/dL Hct (42.0-52.0) % MCV (80.0-105.0) fL MCH (25.0-35.0) pg MCHC (31.0-37.0) g/dl RDW (11.5-14.5) % Plt Count (120.0-450.0) 10^3/uL MPV (7.0-11.0) fl Gran % (50.0-68.0) % Lymph % (Auto) (22.0-35.0) % [place] % (Auto) (1.0-6.0) % Eos % (Auto) (1.5-5.0) % Baso % (Auto) (0.0-3.0) % Gran # (1.4-6.5) Lymph # (1.2-3.4) [place] # (0.1-0.6) Eos # (0.0-0.7) Baso # (0.0-2.0) K/mm3 Sodium (132-148) mmol/L Potassium (3.6-5.0) mmol/L Chloride (98-107) mmol/L Carbon Dioxide (21-33) mmol/L Anion Gap (10-20) BUN (7-21) mg/dL Creatinine (0.5-1.4) mg/dL Est GFR ( Amer) Est GFR (Non-Af Amer) Random Glucose (70-110) mg/dL Calcium (8.4-10.5) mg/dL Phosphorus (2.5-4.5) mg/dL Magnesium (1.7-2.2) mg/dL Total Bilirubin (0.2-1.3) mg/dL AST (15-59) U/L ALT (7-56) U/L Alkaline Phosphatase (38-133) U/L Total Creatine Kinase (35-230) U/L CK-MB (CK-2) (0.0-3.6) ng/mL CK-MB (CK-2) % Total Protein (5.8-8.3) g/dL Albumin (3.0-4.8) g/dL Globulin gm/dL Albumin/Globulin Ratio (1.1-1.8) Urine Osmolality 256 (50-645) mosm/kg Ur Random Sodium meq/L Laboratory Results - last 24 hr 12/30/16 12/30/16 12/30/16 12:40 15:15 15:15 WBC 9.0 RBC 3.68 Hgb 11.1 L Hct 30.2 L MCV 82.1 MCH 30.2 MCHC 36.8 RDW 12.7 Plt Count 116 L MPV 9.8 Gran % 63.6 Lymph % (Auto) 29.2 [place] % (Auto) 6.2 H Eos % (Auto) 0.9 L Baso % (Auto) 0.1 Gran # 5.72 Lymph # 2.6 [place] # 0.6 Eos # 0.1 Baso # 0.01 Sodium 121 L Potassium 3.5 L Chloride 89 L Carbon Dioxide 22 Anion Gap 14 BUN < 2 L Creatinine 0.5 Est GFR ( Amer) > 60 Est GFR (Non-Af Amer) > 60 Random Glucose 119 H Calcium 7.0 L Phosphorus Magnesium Total Bilirubin AST ALT Alkaline Phosphatase Total Creatine Kinase CK-MB (CK-2) CK-MB (CK-2) % Total Protein Albumin Globulin Albumin/Globulin Ratio Urine Osmolality 256 Ur Random Sodium 12/30/16 12/30/16 12/30/16 16:00 16:00 19:39 WBC RBC Hgb Hct MCV MCH MCHC RDW Plt Count MPV Gran % Lymph % (Auto) [place] % (Auto) Eos % (Auto) Baso % (Auto) Gran # Lymph # [place] # Eos # Baso # Sodium 122 L Potassium 3.6 Chloride 87 L Carbon Dioxide 26 Anion Gap 13 BUN < 2 L Creatinine 0.5 Est GFR ( Amer) > 60 Est GFR (Non-Af Amer) > 60 Random Glucose 98 Calcium 7.2 L Phosphorus Magnesium Total Bilirubin AST ALT Alkaline Phosphatase Total Creatine Kinase CK-MB (CK-2) CK-MB (CK-2) % Total Protein Albumin Globulin Albumin/Globulin Ratio Urine Osmolality 258 Ur Random Sodium 82 12/30/16 12/30/16 12/31/16 21:35 23:45 00:05 WBC 9.8 RBC 3.86 Hgb 11.9 L Hct 31.5 L MCV 81.6 MCH 30.8 MCHC 37.8 H RDW 12.8 Plt Count 111 L MPV 9.4 Gran % 66.8 Lymph % (Auto) 26.1 [place] % (Auto) 6.3 H Eos % (Auto) 0.6 L Baso % (Auto) 0.2 Gran # 6.52 H Lymph # 2.6 [place] # 0.6 Eos # 0.1 Baso # 0.02 Sodium 123 L Potassium 3.3 L Chloride 89 L Carbon Dioxide 23 Anion Gap 14 BUN 2 L Creatinine 0.5 Est GFR ( Amer) > 60 Est GFR (Non-Af Amer) > 60 Random Glucose 113 H Calcium 7.5 L Phosphorus 1.9 L Magnesium 1.8 Total Bilirubin AST ALT Alkaline Phosphatase Total Creatine Kinase CK-MB (CK-2) CK-MB (CK-2) % Total Protein Albumin Globulin Albumin/Globulin Ratio Urine Osmolality Ur Random Sodium 12/31/16 12/31/16 12/31/16 06:00 06:00 08:30 WBC 7.0 D RBC 3.46 L Hgb 10.7 L Hct 28.6 L MCV 82.7 MCH 30.9 MCHC 37.4 H RDW 12.9 Plt Count 122 MPV 9.4 Gran % 62.7 Lymph % (Auto) 29.9 [place] % (Auto) 6.6 H Eos % (Auto) 0.7 L Baso % (Auto) 0.1 Gran # 4.37 Lymph # 2.1 [place] # 0.5 Eos # 0.1 Baso # 0.01 Sodium 128 L Potassium 3.3 L Chloride 94 L Carbon Dioxide 28 Anion Gap 9 L BUN 4 L Creatinine 0.6 Est GFR ( Amer) > 60 Est GFR (Non-Af Amer) > 60 Random Glucose 100 Calcium 7.3 L Phosphorus Magnesium Total Bilirubin 0.6 AST 684 H ALT 134 H Alkaline Phosphatase 58 Total Creatine Kinase 12548 H CK-MB (CK-2) 2.9 CK-MB (CK-2) % Cancelled Total Protein 6.4 Albumin 3.7 Globulin 2.7 Albumin/Globulin Ratio 1.4 Urine Osmolality 44 L Ur Random Sodium < 5 12/31/16 12:20 WBC RBC Hgb Hct MCV MCH MCHC RDW Plt Count MPV Gran % Lymph % (Auto) [place] % (Auto) Eos % (Auto) Baso % (Auto) Gran # Lymph # [place] # Eos # Baso # Sodium 135 Potassium 3.6 Chloride 107 Carbon Dioxide 24 Anion Gap 8 L BUN 3 L Creatinine 0.6 Est GFR ( Amer) > 60 Est GFR (Non-Af Amer) > 60 Random Glucose 81 Calcium 5.6 L* Phosphorus Magnesium Total Bilirubin AST ALT Alkaline Phosphatase Total Creatine Kinase CK-MB (CK-2) CK-MB (CK-2) % Total Protein Albumin Globulin Albumin/Globulin Ratio Urine Osmolality Ur Random Sodium Critical Care Progress Note - Nutrition Nutrition: Nutrition Category Date Time Status Liquid Diet [DIET] Diets 12/30/16 Breakfast Ordered Attending/Attestation - Attestation I have personally seen and examined this patient.: Yes I have fully participated in the care of the patient.: Yes I have reviewed all pertinent clinical information: Yes Notes (Text): 12/31/16 13:49 31 y/o M w/ Hyponatremia from dehydration , vomiting and alcohol Na correction improving, past the first 24 hrs. Mental status in tact. MRI brain done yesterday w/o any new findings. Overnight had some signs of agitation and DT , was given 6 mg of Ativan and started on Precedex. Currently more comfortable. Found to have elevated CK. Placed on NS @250ml/hr after 2L NS bolus. Likely sodium will increase as well. CMP q6hrs and repeat CK later today. Prn Ativan if needed, I:I. dvt p SCD. HGB stable may be able to start Heparin sq soon. PPI and liquid diet continued. Gi followin g. cc time 55 min
--- NOTE | 2016-12-31 12:10 | CP.PCM.PN ---
<MachotamMae - Last Filed: 12/31/16 12:07> Subjective - Date & Time of Evaluation Date of Evaluation: 12/31/16 Time of Evaluation: 12:07 - Subjective Subjective: HOSPITALISTS PROGRESS NOTE Pt is seen and examined at bedside. Overnight, thiago bhatti was called on pt as he was trying to break out of room through window. Patient was place din restraints and on 1:1. Patient is arousable now and answers questions and follows commands. Denies having any CP, SOB, abd pain. Objective - Vital Signs/Intake and Output Vital Signs (last 24 hours): Temp Pulse Resp BP Pulse Ox 97.6 F 67 16 94/49 L 100 12/31/16 04:00 12/31/16 04:50 12/31/16 04:50 12/31/16 04:21 12/31/16 04:50 Intake and Output: 12/31/16 12/31/16 06:59 18:59 Intake Total 676.0 Output Total 1350 Balance -674.0 - Medications Medications: Current Medications Folic Acid (Folic Acid) 1 mg PO DAILY [facility] Octreotide Acetate 1,250 mcg/ (Dextrose) 252.5 mls @ 5.05 mls/hr IV .Q24H [facility]US; 25 MCG/HR PRN Reason: Protocol Last Admin: 12/30/16 21:04 Dose: 25 mcg/hr, 5.05 mls/hr Pantoprazole Sodium (Protonix 40mg Ivpb) 40 mg in 100 mls @ 20 mls/hr IVPB .Q5H [facility] Last Admin: 12/31/16 11:10 Dose: 20 mls/hr Levetiracetam (Keppra 500mg Ivpb) 500 mg in 100 mls @ 460 mls/hr IVPB Q12 [facility] Last Admin: 12/31/16 11:07 Dose: 460 mls/hr Dexmedetomidine HCl (Precedex 4 Mcg/Ml (100 Ml)) 400 mcg in 100 mls @ 10.319 mls/hr IV .Q9H42M PRN; Protocol; 0.7 MCG/KG/HR PRN Reason: Agitation Last Titration: 12/31/16 06:11 Dose: 0.2 mcg/kg/hr, 2.948 mls/hr Potassium Phosphate 15 mmole/ (Sodium Chloride) 255 mls @ 50 mls/hr IV .Q5H6M [facility] Last Admin: 12/31/16 05:11 Dose: 50 mls/hr Lorazepam (Ativan) 2 mg IVP Q2H PRN; Protocol PRN Reason: Seizure activity Last Admin: 12/31/16 01:43 Dose: 2 mg Multivitamins/Minerals (Therapeutic-M Tab) 1 tab PO DAILY [facility] Last Admin: 12/30/16 12:20 Dose: 1 tab Thiamine HCl (Vitamin B1 Tab) 100 mg PO DAILY [facility] Thiamine HCl (Vitamin B1 Inj) 100 mg IV DAILY [facility] Last Admin: 12/31/16 11:07 Dose: 100 mg - Labs Labs: 12/31/16 06:00 12/31/16 06:00 PT 12.6 Seconds (9.9-11.8) H 12/29/16 07:14 INR 1.17 (0.93-1.08) H 12/29/16 07:14 APTT 28.7 Seconds (23.7-30.8) 12/29/16 07:14 - Constitutional Appears: Non-toxic, No Acute Distress - Head Exam Head Exam: ATRAUMATIC - Respiratory Exam Respiratory Exam: Clear to Ausculation Bilateral. absent: Rales, Rhonchi, Wheezes - Cardiovascular Exam Cardiovascular Exam: REGULAR RHYTHM, +S1, +S2 - GI/Abdominal Exam GI & Abdominal Exam: Firm, Normal Bowel Sounds. absent: Tenderness - Extremities Exam Extremities Exam: absent: Pedal Edema, Tenderness - Neurological Exam Neurological Exam: Alert, Awake, Oriented x3 - Psychiatric Exam Psychiatric exam: Normal Affect, Normal Mood - Skin Skin Exam: Dry, Intact, Normal Color, Warm Assessment and Plan - Assessment and Plan (Free Text) Assessment: 31 y/o M with past medical history of ETOH abuse and seizures presents to ED s/ p seizure likely 2/2 to alcohol abuse. Plan: Alcohol Abuse/Withdrawal Precedex drip Multi-Vit Thiamine Folic Acid Ativan 2mg PRN Abdominal US - please see full report -fatty liver vs parenchymal disease Septic Shock CBC- leukocytosis Blood culture - No Growth in 24hrs Urine culture No Growth MRSA screen VBG -respiratory alkalosis on admission VBG -improving -pO2 33, pCO2 40, HCO3 22, pH 7.36, Lactate 4.4 Aztreonam in the ED ID Consult - Dr. Clarke, appreciate recs -Vancomycin and Rocephin pending blood and urine cx, HIV negative Hep Panel negative Seizures Keppra 500mg q12 Head CT - please see full report -No Acute findings, with evidence of chronic ischemic changes MRI of brain showe dno acute changes. Showed 12 mm lesion at left basal ganglia possible old infarct vs encephalomalacia with blood product. Neuro Consult - Dr. Ashok Ruffin, appreciate recs GI Bleed Protonix drip octreotide drip GI Consult Dr. Rm, appreciate recs No plan for EGD currently. Liquid diet Hyponatremia Correcting slowly Nephrology, Dr. Chirinos is consulted Will continue to monitor Hypokalemia Potassium phosphate drip <Ayala Tovar B - Last Filed: 01/01/17 12:33> Objective - Vital Signs/Intake and Output Vital Signs (last 24 hours): Temp Pulse Resp BP Pulse Ox 98.3 F 65 16 139/103 H 100 01/01/17 08:00 01/01/17 09:00 01/01/17 09:00 01/01/17 07:00 01/01/17 07:40 Intake and Output: 01/01/17 01/01/17 06:59 18:59 Intake Total 4130 0.2 Output Total 4300 Balance -170 0.2 - Medications Medications: Current Medications Folic Acid (Folic Acid) 1 mg PO DAILY [facility] Last Admin: 01/01/17 09:25 Dose: 1 mg Dexmedetomidine HCl (Precedex 4 Mcg/Ml (100 Ml)) 400 mcg in 100 mls @ 10.319 mls/hr IV .Q9H42M PRN; Protocol; 0.7 MCG/KG/HR PRN Reason: Agitation Last Admin: 01/01/17 11:37 Dose: 0.2 mcg/kg/hr, 2.948 mls/hr Sodium Chloride (Sodium Chloride 0.9%) 1,000 mls @ 500 mls/hr IV .Q2H [facility] Stop: 01/02/17 10:15 Last Admin: 01/01/17 10:30 Dose: 500 mls/hr Multivitamins/Minerals (Therapeutic-M Tab) 1 tab PO DAILY [facility] Last Admin: 01/01/17 09:25 Dose: 1 tab Pantoprazole Sodium (Protonix Inj) 40 mg IVP Q12 [facility] Thiamine HCl (Vitamin B1 Tab) 100 mg PO DAILY [facility] Last Admin: 01/01/17 09:25 Dose: 100 mg Thiamine HCl (Vitamin B1 Inj) 100 mg IV DAILY [facility] Last Admin: 12/31/16 11:07 Dose: 100 mg - Labs Labs: 01/01/17 05:30 01/01/17 05:30 PT 12.6 Seconds (9.9-11.8) H 12/29/16 07:14 INR 1.17 (0.93-1.08) H 12/29/16 07:14 APTT 28.7 Seconds (23.7-30.8) 12/29/16 07:14 Attending/Attestation - Attestation I have personally seen and examined this patient.: Yes I have fully participated in the care of the patient.: Yes I have reviewed all pertinent clinical information, including history, physical exam and plan: Yes Notes (Text): I have seen and examined patient at bedside. Agree with the above note with the following additions/ exceptions: This is 31 year old French speaking male with history of alcohol abuse, 6 seizures episodes in the past who was brought in ED for evaluation of seizure, headache, dizziness, bloody vomiting and sore throat. Upon admission he was found to be in septic shock/SIRS and was admitted to ICU. He also had hematemesis , hyponatremia, hypochloremia and was going thru mild alcohol withdrawal syndrome. Last night thiago toney was called on this patient as he was going thru severe alcohol withdrawal. He was given 6 mg of ativan in 1 hour followed by precedex drip. He appears somnolent today. Oriented to his name only. Otherwise he appears comfortable. Continue ativan prn. Avoid librium due to transaminitis. He was found to have elevated CK and was slightly hypotensive today therefore was started on IVF after bolus was given. Leukocytosis and elevated lactic acid was most likely reactive. Procal normal. CXR normal. Discussed with ID. Antibiotics stopped. CT head showed chronic ischemic changes. 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 EEG showed diffuse bilateral cerebral dysfunction and no seizure activity. Continue keppra. Hyponatremia most likely due to volume depletion and poor dietary intake. Sodium continues to improve. Renall on board. No further episodes of hematemesis. There is no plan for EGD. He has been tolerating clear liquid diet. Continue potonix and octreotide drips. LFTs are elevated. Hep panel and HIV negative. Abdominal ultrasound showed fatty liver vs parenchymal disease. Dr Ayala Tovar
[2016-12-31 12:41] LABS: BLOOD UREA NITROGEN 3 mg/dL (7-21); CARBON DIOXIDE 24 mmol/L (21-33); CHLORIDE 107 mmol/L (98-107); GFR AFRICAN-AMERICAN > 60; GLUCOSE,RANDOM 81 mg/dL (70-110); POTASSIUM 3.6 mmol/L (3.6-5.0); SODIUM 135 mmol/L (132-148)
[2016-12-31 13:14] LABS: CALCIUM 5.6 mg/dL (8.4-10.5)
[2016-12-31] MEDS ORDERED: Sodium Chloride 0.9% 1,000 ML IV SCH ×3 (13:45→21:00)
[2016-12-31] MEDS: Multivitamin With Minerals Tab PO SCH (13:45)
--- NOTE | 2016-12-31 14:29 | PN ---
DATE: 12/31/2016 A 31-year-old male with past medical history of alcohol abuse, admitted with severe hyponatremia foll owing a witnessed seizure. Nephrology following for hyponatremia. The patient overnight became very agitated, wanting to leave, had to be restrained this morning. Den ies any complaints. Denies any pain. PHYSICAL EXAMINATION: VITAL SIGNS: This morning, blood pressure 97/47, heart rate 88, respirations 12. GENERAL: Mildly agitated, otherwise in no acute distress. HEENT: Moist mucous membranes. Nonicteric. RESPIRATORY: Lungs are clear to auscultation bilaterally. No rales, no rhonchi, no wheezes. HEART: S1, S2 normal, no murmurs, no gallops, no rubs. ABDOMEN: Nontender, mildly distended. GENITOURINARY: Rosen in place draining urine. EXTREMITIES: No leg edema. Distal pulses, good radial and dorsalis pedis pulses bilaterally. NEUROLOGIC: Somewhat tremulous. LABORATORY DATA: This morning, CBC: WBC 7.0, hemoglobin 10.7, hematocrit 28.6, platelets 122. Chem istry panel: Sodium 128, potassium 3.3, chloride 94, bicarbonate 28, BUN 4, creatinine 0.6, calcium 7.3, AST 684, ALT 134, CK 92,801, albumin 3.7. Urine electrolytes this morning, urine sodium less th an 5, urine osmolality 44. ASSESSMENT: 1. Severe hypotonic hyponatremia secondary to volume depletion in the setting of inadequate solute i ntake while vomiting and consuming only alcoholic beverages. Serum sodium overcorrected yesterday an d successfully lowered down using free water and desmopressin. Currently serum sodium at an acceptab le level with an increase of 16 over a 48-hour period. The patient is hypotensive this morning with urine sodium less than 5 consistent with volume depletion, despite urine osmolality being appropriate ly very low in the setting of hyponatremia. Agree with bolusing of 3 liters normal saline. Desmopre ssin 2 mcg given this morning also to avoid any rapid rise in serum sodium. Continue to monitor. Go al serum sodium for this evening should be low 130s. 2. Rhabdomyolysis. The patient with markedly elevated CK levels in the setting of delirium tremens in the setting of needing to be restrained physically; however, the patient did have dipstick positiv e blood on urinalysis with little microscopic hematuria seen; therefore, some degree of rhabdo might have already been present secondary to his seizure. Agree with aggressive isotonic saline infusion i n order to prevent renal tubular injury. 3. Hypokalemia, mild. The patient has been supplemented aggressively thus far. Goal should be to s upplement to a level of no more than 3.5 mEq per liter as potassium supplementation will also increas e serum sodium concentration due to cell shifting. 4. Hypovolemia. Hypertension seen today may simply reflect ongoing underlying hypovolemia secondary to patient's gastrointestinal losses. The patient getting aggressive intervascular volume repletion . Agree with current management. 5. Alcohol abuse. The patient now in alcohol withdrawal getting Precedex to control agitation. Deli rium tremens may be contributing to patient's rhabdo. Continue with aggressive IV fluids. 6. Hypophosphatemia in the setting of decreased p.o. intake can also be contributory to rhabdo. Agr ee with IV supplementation. Jhoan Chirinos MD cc: [id number] TT: 12/31/2016 14:29:30 Confirmation # [id number] Dictation # [id number] amber
[2016-12-31 16:23] LABS: BLOOD UREA NITROGEN 3 mg/dL (7-21); CARBON DIOXIDE 26 mmol/L (21-33); CHLORIDE 108 mmol/L (98-107); GFR AFRICAN-AMERICAN > 60; GLUCOSE,RANDOM 76 mg/dL (70-110); POTASSIUM 3.5 mmol/L (3.6-5.0); SODIUM 136 mmol/L (132-148)
[2016-12-31] MEDS ORDERED: Potassium Chloride 20 mEq/15 ml LIQ UD PO ONE (17:04)
--- NOTE | 2016-12-31 18:23 | CP.PCM.PN ---
Subjective - Date & Time of Evaluation Date of Evaluation: 12/31/16 Time of Evaluation: 13:00 - Subjective Subjective: see earlier note Objective - Vital Signs/Intake and Output Vital Signs (last 24 hours): Temp Pulse Resp BP Pulse Ox 98.6 F 112 H 20 135/82 99 12/31/16 16:00 12/31/16 18:01 12/31/16 18:01 12/31/16 18:01 12/31/16 18:01 Intake and Output: 12/31/16 12/31/16 06:59 18:59 Intake Total 676.0 5500.2 Output Total 1350 4300 Balance -674.0 1200.2 - Medications Medications: Current Medications Calcium Carbonate (Caltrate) 600 mg PO ONCE ONE Stop: 12/31/16 20:01 Folic Acid (Folic Acid) 1 mg PO DAILY [facility]US Last Admin: 12/31/16 13:46 Dose: 1 mg Octreotide Acetate 1,250 mcg/ (Dextrose) 252.5 mls @ 5.05 mls/hr IV .Q24H JESUS; 25 MCG/HR PRN Reason: Protocol Last Admin: 12/30/16 21:04 Dose: 25 mcg/hr, 5.05 mls/hr Pantoprazole Sodium (Protonix 40mg Ivpb) 40 mg in 100 mls @ 20 mls/hr IVPB .Q5H [facility] Last Admin: 12/31/16 17:10 Dose: 20 mls/hr Levetiracetam (Keppra 500mg Ivpb) 500 mg in 100 mls @ 460 mls/hr IVPB Q12 [facility]US Last Admin: 12/31/16 11:07 Dose: 460 mls/hr Dexmedetomidine HCl (Precedex 4 Mcg/Ml (100 Ml)) 400 mcg in 100 mls @ 10.319 mls/hr IV .Q9H42M PRN; Protocol; 0.7 MCG/KG/HR PRN Reason: Agitation Last Admin: 12/31/16 17:17 Dose: 0.2 mcg/kg/hr, 2.948 mls/hr Dextrose (Dextrose 5% In Water 1000 Ml) 1,000 mls @ 250 mls/hr IV .Q4H [facility]US Last Admin: 12/31/16 18:07 Dose: 250 mls/hr Calcium Gluconate 1,000 mg/ (Dextrose) 110 mls @ 110 mls/hr IVPB DAILY [facility] Stop: 01/01/17 10:59 Last Admin: 12/31/16 18:06 Dose: 110 mls/hr Desmopressin Acetate 2 mcg/ (Sodium Chloride) 50.5 mls @ 100 mls/hr IV ONCE ONE Stop: 12/31/16 18:51 Lorazepam (Ativan) 2 mg IVP Q2H PRN; Protocol PRN Reason: Seizure activity Last Admin: 12/31/16 01:43 Dose: 2 mg Multivitamins/Minerals (Therapeutic-M Tab) 1 tab PO DAILY [facility] Last Admin: 12/31/16 13:45 Dose: 1 tab Thiamine HCl (Vitamin B1 Tab) 100 mg PO DAILY [facility] Thiamine HCl (Vitamin B1 Inj) 100 mg IV DAILY [facility] Last Admin: 12/31/16 11:07 Dose: 100 mg - Labs Labs: 12/31/16 06:00 12/31/16 16:00 PT 12.6 Seconds (9.9-11.8) H 12/29/16 07:14 INR 1.17 (0.93-1.08) H 12/29/16 07:14 APTT 28.7 Seconds (23.7-30.8) 12/29/16 07:14
[2016-12-31] MEDS ORDERED: Sodium Chloride 0.45% 1,000 ML IV SCH ×2 (18:45→21:00)
[2016-12-31] MEDS: Octreotide 1,250 MCG in Dextrose 5% In Water 250 ML IV SCH (21:08)
[2016-12-31 22:18] LABS: CALCIUM 7.2 mg/dL (8.4-10.5); CARBON DIOXIDE 22 mmol/L (21-33); CHLORIDE 101 mmol/L (98-107); GFR AFRICAN-AMERICAN > 60; GLUCOSE,RANDOM 89 mg/dL (70-110); POTASSIUM 3.8 mmol/L (3.6-5.0); SODIUM 132 mmol/L (132-148)
[2016-12-31 22:19] LABS: BLOOD UREA NITROGEN < 2 mg/dL (7-21)
[2016-12-31] MEDS: Sodium Chloride 0.9% 1,000 ML IV SCH (23:00)
[2017-01-01] MEDS: Pantoprazole 40mg/100ml IVPB 40 MG/100 ML BAG IVPB SCH ×2 (02:00→06:55)
[2017-01-01] MEDS: Sodium Chloride 0.9% 1,000 ML IV SCH ×9 (03:08→23:16)
[2017-01-01 06:05] LABS: ADD MANUAL DIFF? NO
[2017-01-01 06:12] LABS: BASO # 0.01 K/mm3 (0.0-2.0); BASO % 0.1 % (0.0-3.0); EOS # 0.1 (0.0-0.7); EOS % 1.2 % (1.5-5.0); GRAN # 6.88 (1.4-6.5); GRAN % 70.5 % (50.0-68.0); HEMATOCRIT 29.4 % (42.0-52.0); MEAN CORPUSCULAR HEMOGLOBIN 30.3 pg (25.0-35.0); MEAN CORPUSCULAR HGB CONC 35.7 g/dl (31.0-37.0); MEAN PLATELET VOLUME 9.3 fl (7.0-11.0); MONO # 0.8 (0.1-0.6); MONO % 8.2 % (1.0-6.0); PLATELET COUNT 141 10^3/uL (120.0-450.0); RED CELL DISTRIBUTION WIDTH 13.3 % (11.5-14.5); WHITE BLOOD COUNT 9.8 10^3/ul (4.5-11.0)
[2017-01-01 06:22] LABS: ALB/GLOB RATIO 1.2 (1.1-1.8); ALKALINE PHOSPHATASE 51 U/L (38-133); ALT/SGPT 148 U/L (7-56); AST/SGOT 687 U/L (15-59); BILIRUBIN,TOTAL 0.6 mg/dL (0.2-1.3); BLOOD UREA NITROGEN < 2 mg/dL (7-21); CARBON DIOXIDE 23 mmol/L (21-33); CHLORIDE 101 mmol/L (98-107); GFR AFRICAN-AMERICAN > 60; GLUCOSE,RANDOM 101 mg/dL (70-110); PHOSPHOROUS 2.5 mg/dL (2.5-4.5); POTASSIUM 3.2 mmol/L (3.6-5.0); SODIUM 131 mmol/L (132-148)
[2017-01-01 06:31] LABS: CALCIUM 6.9 mg/dL (8.4-10.5)
[2017-01-01] MEDS ORDERED: Potassium Chloride 40 mEq/30 ml LIQ UD PO ONE (06:38)
[2017-01-01 08:28] LABS: MAGNESIUM 1.5 mg/dL (1.7-2.2)
[2017-01-01] MEDS ORDERED: Magnesium Sulfate 1 gm in D5W 1 GM/100 ML BAG IVPB ONE (09:12)
[2017-01-01] MEDS: levETIRAcetam 500mg IVPB 500 MG/100 ML BAG IVPB SCH (09:21)
[2017-01-01] MEDS: Multivitamin With Minerals Tab PO SCH (09:25)
--- NOTE | 2017-01-01 10:23 | CP.CCUPN ---
<Marilou Durbin - Last Filed: 01/01/17 12:24> CCU Subjective - Physician Review Events Since Last Encounter (Free Text): 01/01/17 10:20 Pt with agitation overnight as per nursing. Still on 1:1. Subjective (Free Text): 12/30/16 11:24 Critical care progress note for Dr. Manuel Durbin, PGY-1 Pt S & E at bedside. Pt reports no problems overnight. Slept ok. Denies N/V/F, SOB, CP, abdominal pain, PAREDES, back pain, hematemesis, hematochezia. 12/31/16 12:06 Critical care progress note for Dr. Manuel Durbin, PGY-1 Pt S & E at bedside. Pt awake, verbal, not oriented this AM. Denies N/V/F, SOB, CP, abdominal pain, PAREDES, back pain, bleeding. Currently calm, sitting in bed. 01/01/17 10:20 Critical care progress note for Dr. Manuel Durbin, PGY-1 Pt S & E at bedside. Pt awake, alert, oriented this AM. Denies N/V/F, SOB, CP, abdominal pain, PAREDES, back pain. No problems per pt. Currently calm, resting comfortably in bed. Able to follow commands. CCU Objective - Vital Signs / Intake & Output Vital Signs (Last 4 hours): Vital Signs Temp Pulse Resp BP Pulse Ox 01/01/17 09:00 65 16 01/01/17 08:59 66 15 01/01/17 08:58 66 16 01/01/17 08:57 64 15 01/01/17 08:56 69 17 01/01/17 08:55 68 16 01/01/17 08:54 73 17 01/01/17 08:53 67 16 01/01/17 08:52 66 16 01/01/17 08:51 68 15 01/01/17 08:50 68 17 01/01/17 08:49 69 15 01/01/17 08:48 70 15 01/01/17 08:47 62 16 01/01/17 08:46 66 15 01/01/17 08:45 66 18 01/01/17 08:44 67 16 01/01/17 08:43 68 17 01/01/17 08:42 71 17 01/01/17 08:41 83 17 01/01/17 08:40 78 19 01/01/17 08:39 75 18 01/01/17 08:38 73 18 01/01/17 08:37 75 18 01/01/17 08:36 73 18 01/01/17 08:35 73 19 01/01/17 08:00 98.3 F 18 01/01/17 07:48 81 16 01/01/17 07:47 82 15 01/01/17 07:46 72 13 01/01/17 07:40 80 17 100 01/01/17 07:30 83 17 100 01/01/17 07:20 87 16 100 01/01/17 07:10 84 100 01/01/17 07:05 100 H 14 01/01/17 07:04 95 H 16 01/01/17 07:03 93 H 17 01/01/17 07:02 102 H 23 01/01/17 07:01 91 H 16 01/01/17 07:00 101 H 139/103 H 01/01/17 06:59 97 H 18 01/01/17 06:58 109 H 19 01/01/17 06:57 96 H 20 01/01/17 06:56 101 H 19 01/01/17 06:55 106 H 18 01/01/17 06:54 99 H 24 01/01/17 06:53 93 H 16 01/01/17 06:52 100 H 19 01/01/17 06:51 86 18 01/01/17 06:50 91 H 18 01/01/17 06:49 95 H 19 01/01/17 06:48 86 14 01/01/17 06:47 96 H 17 01/01/17 06:42 107 H 19 01/01/17 06:41 106 H 19 01/01/17 06:40 98 H 24 01/01/17 06:39 98 H 18 Intake and Output (Last 8hrs): Intake & Output 12/31/16 01/01/17 01/01/17 22:59 06:59 14:59 Intake Total 5750.2 3880 Output Total 4300 4300 Balance 1450.2 -420 Intake: IV 4750.2 3280 Left Forearm 4500 Left Hand 3280 Oral 1000 600 Output: Urine 4300 4300 Urethral (Rosen) 4300 4300 Stool 0 Other: Voiding Method Indwelling Catheter # Bowel Movements 1 - Physical Exam Head: Positive for: Atraumatic, Normocephalic Pupils: Positive for: PERRL Extroacular Muscles: Positive for: EOMI Conjunctiva: Positive for: Normal Ears: Positive for: Normal Mouth: Positive for: Moist Mucous Membranes Nose (External): Positive for: Atraumatic Neck: Positive for: Normal Range of Motion Respiratory/Chest: Positive for: Clear to Auscultation, Good Air Exchange. Negative for: Respiratory Distress, Accessory Muscle Use Cardiovascular: Positive for: Regular Rate and Rhythm, Normal S1, S2. Negative for: Murmurs Abdomen: Positive for: Normal Bowel Sounds. Negative for: Tenderness, Distention, Peritoneal Signs Genitourinary Male: Positive for: Other (Rosen catheter in place) Upper Extremity: Positive for: Normal Inspection. Negative for: Cyanosis, Edema Lower Extremity: Positive for: Normal Inspection. Negative for: Edema Neurological: Positive for: GCS=15, CN II-XII Intact, Speech Normal Skin: Positive for: Warm, Dry, Normal Color. Negative for: Rashes Psychiatric: Positive for: Alert, Oriented x 3, Normal Insight, Normal Concentration. Negative for: Agitated - Medications Active Medications: Active Medications Generic Name Dose Route Start Last Admin Trade Name Freq PRN Reason Stop Dose Admin Folic Acid 1 mg 12/31/16 12:30 01/01/17 09:25 Folic Acid PO 1 mg DAILY JESUS Administration Octreotide Acetate 1,250 mcg/ 252.5 mls @ 5.05 mls/hr 12/29/16 08:45 21:08 Dextrose IV 25 mcg/hr .Q24H JESUS 5.05 mls/hr Protocol Administration 25 MCG/HR Pantoprazole Sodium 40 mg in 100 mls @ 20 mls/hr 12/29/16 08:45 01/01/17 06: 55 Protonix 40mg Ivpb IVPB 20 mls/hr .Q5H JESUS Administration Dexmedetomidine HCl 400 mcg in 100 mls @ 10.319 mls/hr 12/31/16 02:10 17:17 Precedex 4 Mcg/Ml (100 Ml) IV 0.2 mcg/kg/hr .Q9H42M PRN 2.948 mls/hr Agitation Administration Protocol 0.7 MCG/KG/HR Calcium Gluconate 1,000 mg/ 110 mls @ 110 mls/hr 12/31/16 17:30 01/01/17 09: 17 Dextrose IVPB 01/01/17 10:59 110 mls/hr DAILY JESUS Administration Sodium Chloride 1,000 mls @ 500 mls/hr 01/01/17 10:14 Sodium Chloride 0.9% IV 01/02/17 10:15 .Q2H JESUS Lorazepam 2 mg 12/30/16 06:45 01/01/17 03:33 Ativan IVP 2 mg Q2H PRN Administration Seizure activity Protocol Multivitamins/Minerals 1 tab 12/31/16 12:30 01/01/17 09:25 Therapeutic-M Tab PO 1 tab DAILY JESUS Administration Thiamine HCl 100 mg 12/31/16 10:00 01/01/17 09:25 Vitamin B1 Tab PO 100 mg DAILY JESUS Administration Thiamine HCl 100 mg 12/31/16 10:00 12/31/16 11:07 Vitamin B1 Inj IV 100 mg DAILY JESUS Administration - Patient Studies Lab Studies: Lab Studies 01/01/17 01/01/17 01/01/17 Range/Units 06:30 05:30 05:30 WBC 9.8 D (4.5-11.0) 10^3/ul RBC 3.46 L (3.5-6.1) 10^6/uL Hgb 10.5 L (14.0-18.0) gm/dL Hct 29.4 L (42.0-52.0) % MCV 85.0 (80.0-105.0) fL MCH 30.3 (25.0-35.0) pg MCHC 35.7 (31.0-37.0) g/dl RDW 13.3 (11.5-14.5) % Plt Count 141 (120.0-450.0) 10^3/uL MPV 9.3 (7.0-11.0) fl Gran % 70.5 H (50.0-68.0) % Lymph % (Auto) 20.0 L (22.0-35.0) % [place] % (Auto) 8.2 H (1.0-6.0) % Eos % (Auto) 1.2 L (1.5-5.0) % Baso % (Auto) 0.1 (0.0-3.0) % Gran # 6.88 H (1.4-6.5) Lymph # 2.0 (1.2-3.4) [place] # 0.8 H (0.1-0.6) Eos # 0.1 (0.0-0.7) Baso # 0.01 (0.0-2.0) K/mm3 Sodium 131 L (132-148) mmol/L Potassium 3.2 L (3.6-5.0) mmol/L Chloride 101 (98-107) mmol/L Carbon Dioxide 23 (21-33) mmol/L Anion Gap 10 (10-20) BUN < 2 L (7-21) mg/dL Creatinine 0.5 (0.5-1.4) mg/dL Est GFR ( Amer) > 60 Est GFR (Non-Af Amer) > 60 POC Glucose (mg/dL) (65-110) mg/dL Random Glucose 101 (70-110) mg/dL Lactic Acid (0.7-2.1) mmol/L Calcium 6.9 L* (8.4-10.5) mg/dL Phosphorus 2.5 (2.5-4.5) mg/dL Magnesium 1.5 L (1.7-2.2) mg/dL Total Bilirubin 0.6 (0.2-1.3) mg/dL AST 687 H (15-59) U/L ALT 148 H (7-56) U/L Alkaline Phosphatase 51 (38-133) U/L Total Creatine Kinase 765163 H (35-230) U/L CK-MB (CK-2) (0.0-3.6) ng/mL CK-MB (CK-2) % Total Protein 6.0 (5.8-8.3) g/dL Albumin 3.2 (3.0-4.8) g/dL Globulin 2.7 gm/dL Albumin/Globulin Ratio 1.2 (1.1-1.8) 12/31/16 12/31/16 12/31/16 Range/Units 21:30 16:00 16:00 WBC (4.5-11.0) 10^3/ul RBC (3.5-6.1) 10^6/uL Hgb (14.0-18.0) gm/dL Hct (42.0-52.0) % MCV (80.0-105.0) fL MCH (25.0-35.0) pg MCHC (31.0-37.0) g/dl RDW (11.5-14.5) % Plt Count (120.0-450.0) 10^3/uL MPV (7.0-11.0) fl Gran % (50.0-68.0) % Lymph % (Auto) (22.0-35.0) % [place] % (Auto) (1.0-6.0) % Eos % (Auto) (1.5-5.0) % Baso % (Auto) (0.0-3.0) % Gran # (1.4-6.5) Lymph # (1.2-3.4) [place] # (0.1-0.6) Eos # (0.0-0.7) Baso # (0.0-2.0) K/mm3 Sodium 132 136 (132-148) mmol/L Potassium 3.8 3.5 L (3.6-5.0) mmol/L Chloride 101 108 H (98-107) mmol/L Carbon Dioxide 22 26 (21-33) mmol/L Anion Gap 13 6 L (10-20) BUN < 2 L 3 L (7-21) mg/dL Creatinine 0.5 0.6 (0.5-1.4) mg/dL Est GFR ( Amer) > 60 > 60 Est GFR (Non-Af Amer) > 60 > 60 POC Glucose (mg/dL) (65-110) mg/dL Random Glucose 89 76 (70-110) mg/dL Lactic Acid 0.6 L (0.7-2.1) mmol/L Calcium 7.2 L 6.0 L* (8.4-10.5) mg/dL Phosphorus (2.5-4.5) mg/dL Magnesium (1.7-2.2) mg/dL Total Bilirubin (0.2-1.3) mg/dL AST (15-59) U/L ALT (7-56) U/L Alkaline Phosphatase (38-133) U/L Total Creatine Kinase 99513 H (35-230) U/L CK-MB (CK-2) 2.9 (0.0-3.6) ng/mL CK-MB (CK-2) % Cancelled Total Protein (5.8-8.3) g/dL Albumin (3.0-4.8) g/dL Globulin gm/dL Albumin/Globulin Ratio (1.1-1.8) 12/31/16 12/31/16 12/31/16 Range/Units 12:20 11:29 07:44 WBC (4.5-11.0) 10^3/ul RBC (3.5-6.1) 10^6/uL Hgb (14.0-18.0) gm/dL Hct (42.0-52.0) % MCV (80.0-105.0) fL MCH (25.0-35.0) pg MCHC (31.0-37.0) g/dl RDW (11.5-14.5) % Plt Count (120.0-450.0) 10^3/uL MPV (7.0-11.0) fl Gran % (50.0-68.0) % Lymph % (Auto) (22.0-35.0) % [place] % (Auto) (1.0-6.0) % Eos % (Auto) (1.5-5.0) % Baso % (Auto) (0.0-3.0) % Gran # (1.4-6.5) Lymph # (1.2-3.4) [place] # (0.1-0.6) Eos # (0.0-0.7) Baso # (0.0-2.0) K/mm3 Sodium 135 (132-148) mmol/L Potassium 3.6 (3.6-5.0) mmol/L Chloride 107 (98-107) mmol/L Carbon Dioxide 24 (21-33) mmol/L Anion Gap 8 L (10-20) BUN 3 L (7-21) mg/dL Creatinine 0.6 (0.5-1.4) mg/dL Est GFR ( Amer) > 60 Est GFR (Non-Af Amer) > 60 POC Glucose (mg/dL) 90 91 (65-110) mg/dL Random Glucose 81 (70-110) mg/dL Lactic Acid (0.7-2.1) mmol/L Calcium 5.6 L* (8.4-10.5) mg/dL Phosphorus (2.5-4.5) mg/dL Magnesium (1.7-2.2) mg/dL Total Bilirubin (0.2-1.3) mg/dL AST (15-59) U/L ALT (7-56) U/L Alkaline Phosphatase (38-133) U/L Total Creatine Kinase (35-230) U/L CK-MB (CK-2) (0.0-3.6) ng/mL CK-MB (CK-2) % Total Protein (5.8-8.3) g/dL Albumin (3.0-4.8) g/dL Globulin gm/dL Albumin/Globulin Ratio (1.1-1.8) Laboratory Results - last 24 hr 12/31/16 12/31/16 12/31/16 07:44 11:29 12:20 WBC RBC Hgb Hct MCV MCH MCHC RDW Plt Count MPV Gran % Lymph % (Auto) [place] % (Auto) Eos % (Auto) Baso % (Auto) Gran # Lymph # [place] # Eos # Baso # Sodium 135 Potassium 3.6 Chloride 107 Carbon Dioxide 24 Anion Gap 8 L BUN 3 L Creatinine 0.6 Est GFR ( Amer) > 60 Est GFR (Non-Af Amer) > 60 POC Glucose (mg/dL) 91 90 Random Glucose 81 Lactic Acid Calcium 5.6 L* Phosphorus Magnesium Total Bilirubin AST ALT Alkaline Phosphatase Total Creatine Kinase CK-MB (CK-2) CK-MB (CK-2) % Total Protein Albumin Globulin Albumin/Globulin Ratio 12/31/16 12/31/16 12/31/16 16:00 16:00 21:30 WBC RBC Hgb Hct MCV MCH MCHC RDW Plt Count MPV Gran % Lymph % (Auto) [place] % (Auto) Eos % (Auto) Baso % (Auto) Gran # Lymph # [place] # Eos # Baso # Sodium 136 132 Potassium 3.5 L 3.8 Chloride 108 H 101 Carbon Dioxide 26 22 Anion Gap 6 L 13 BUN 3 L < 2 L Creatinine 0.6 0.5 Est GFR ( Amer) > 60 > 60 Est GFR (Non-Af Amer) > 60 > 60 POC Glucose (mg/dL) Random Glucose 76 89 Lactic Acid 0.6 L Calcium 6.0 L* 7.2 L Phosphorus Magnesium Total Bilirubin AST ALT Alkaline Phosphatase Total Creatine Kinase 45225 H CK-MB (CK-2) 2.9 CK-MB (CK-2) % Cancelled Total Protein Albumin Globulin Albumin/Globulin Ratio 01/01/17 01/01/17 01/01/17 05:30 05:30 06:30 WBC 9.8 D RBC 3.46 L Hgb 10.5 L Hct 29.4 L MCV 85.0 MCH 30.3 MCHC 35.7 RDW 13.3 Plt Count 141 MPV 9.3 Gran % 70.5 H Lymph % (Auto) 20.0 L [place] % (Auto) 8.2 H Eos % (Auto) 1.2 L Baso % (Auto) 0.1 Gran # 6.88 H Lymph # 2.0 [place] # 0.8 H Eos # 0.1 Baso # 0.01 Sodium 131 L Potassium 3.2 L Chloride 101 Carbon Dioxide 23 Anion Gap 10 BUN < 2 L Creatinine 0.5 Est GFR ( Amer) > 60 Est GFR (Non-Af Amer) > 60 POC Glucose (mg/dL) Random Glucose 101 Lactic Acid Calcium 6.9 L* Phosphorus 2.5 Magnesium 1.5 L Total Bilirubin 0.6 AST 687 H ALT 148 H Alkaline Phosphatase 51 Total Creatine Kinase 387821 H CK-MB (CK-2) CK-MB (CK-2) % Total Protein 6.0 Albumin 3.2 Globulin 2.7 Albumin/Globulin Ratio 1.2 Review of Systems - Review of Systems All systems: reviewed and no additional remarkable complaints except - Constitutional Constitutional: absent: Fever, Chills - EENT Eyes: UNREMARKABLE Ears: UNREMARKABLE Nose/Mouth/Throat: UNREMARKABLE - Cardiovascular Cardiovascular: UNREMARKABLE. absent: Chest Pain - Respiratory Respiratory: UNREMARKABLE. absent: Wheezing - Gastrointestinal Gastrointestinal: UNREMARKABLE. absent: Abdominal Pain, Nausea, Vomiting - Musculoskeletal Musculoskeletal: UNREMARKABLE - Neurological Neurological: UNREMARKABLE Critical Care Progress Note - Extremities/Vascular Does the Patient have a Central Venous Catheter?: No Does the Patient need a Central Venous Catheter?: No Does the Patient have a Rosen Catheter?: Yes Does the Patient need a Rosen Catheter?: Yes Catheter Insertion Criteria: Need for accurate measurement of output in critically ill patient - Prophylaxis GI Prophylaxis GI: PPI - Prophylaxis DVT Prophylaxis DVT: Not Indicated (PUD) - Nutrition Nutrition: Nutrition Category Date Time Status Liquid Diet [DIET] Diets 12/30/16 Breakfast Ordered Assessment/Plan - Assessment and Plan (Free Text) Assessment: 31M w/PMH sig for ETOH abuse, hx seizures with ETOH use admitted to ICU s/p seizure activity, 1 episode of hematemesis, electrolyte imbalances-severe hyponatemia - resolved, hypokalemia, severe hypophosphatemia- resolved. Need for continued monitoring/correction of imbalances. Pt currently on Precedex for sedation 2/2 agitation/ETOH withdrawal. Now with Rhabdo 2/2 agitation. Will continue in ICU for now. Plan: Neuro s/p seizure ETOH withdrawal-agitation overnight again AOx 3 today Verbal Cont Keppra 500mg Q12H per neuro Ativan PRN seizure - d/c'd Thiamine Folic acid MV Cont Precedex drip CIWA protocol Seizure precautions Aspiration precautions Fall precautions MRI brain- No evidence of acute infarct or acute pathology in the brain. 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 No evidence of enhancing lesion or abnormal brain enhancement in this study. Mild- to-moderate atrophy for the patient's age. EEG w/BCD, no seizure activity Monitor Neuro following- metabolic encephalopathy 2/2 metabolic derangements, c/w Keppra , moniotor lytes/correct, signed off No Librium at this time 2/2 transaminitis per primary team Psych to be consulted as per primary team for ETOH abuse/withdrawal CVS Normotensive Episodes of hypotension overnight Currently receiving NS@250 2/2 rhabdo Monitor Pulm Episodes of tachypnea Sa02 100% Target SaO2 to keep >94% Stable on RA Monitor GI CLD advanced to small amounts of FLD as per GI Protonix drip to d/c Will start protonix 40 IV Q12H Ocreotide drip to d/c GI following- large non bleeding gastric ulcer Nephro Transaminitis AST 687 from 684 - up trending ALT 148 from 134 - up trending Avoid hepatotoxic drugs NS@250 hyponatremia Na 131 Hypokalemia K 3.2 Replaced KCl 40mEq Hypophosphatemia- resolved Phos 2.5 Hypomagnesemia Mg 1.5 MgSo4 1gm x 1 Hypocalcemia Ca 6.9 from 5.6 Ca carbonate 600mg Ca Gluconate 1,000mg I/O's Urine Osm 44 from 258 Random Na <5 from 82 Target euvolemia Monitor closely Serial BMPs Nephro following Able to urinate on own U/A neg GI following Endo Blood sugar 101 Target euglycemia as per NICE sugar trial ID Afebrile No leukocytosis- up trending Cont Rocephin as per ID HIV neg Hep panel neg Urine cxr neg Blood cxr neg x 3D Procalcitonin 0.16 ID following Heme s/p acute episode of hematemesis 2/2 PUD H/H stable Hgb 10.5 from 10.7 Hct 29.4 from 28.6 Monitor MSK Rhabdo CK 100,449 from 87, 064 NS@500 x 3L Will check CPK at 2pm Fall precautions Seizure precautions Will monitor GI/DVT ppx Contraindications to VTE ppx due to PUD Protonix drip to d/c will start Protonix 40mg IV Q12H SCDs Dispo Currently on sedation 2/2 agitation likely 2/2 ETOH withdrawal Monitor lytes Continue ICU care for acute rhabdo DW attending - Date & Time Date: 01/01/17 Time: 07:00 <La MORIN,Indy H - Last Filed: 01/01/17 15:52> CCU Objective - Vital Signs / Intake & Output Vital Signs (Last 4 hours): Vital Signs Temp Pulse Resp BP Pulse Ox 01/01/17 13:30 75 15 100 01/01/17 13:01 66 16 101/52 L 100 01/01/17 13:00 67 16 99 01/01/17 12:30 82 16 100 01/01/17 12:19 74 15 106/67 100 01/01/17 12:05 59 L 14 79/39 L 100 01/01/17 12:00 98.2 F 60 15 69/37 L 99 01/01/17 11:51 60 14 76/37 L 99 Intake and Output (Last 8hrs): Intake & Output 01/01/17 01/01/17 01/01/17 06:59 14:59 22:59 Intake Total 3880 0.2 Output Total 4300 Balance -420 0.2 Intake: IV 3280 0.2 Left Hand 3280 Oral 600 Output: Urine 4300 Urethral (Rosen) 4300 Other: Voiding Method Indwelling Catheter # Bowel Movements 1 - Medications Active Medications: Active Medications Generic Name Dose Route Start Last Admin Trade Name Tamra PRN Reason Stop Dose Admin Folic Acid 1 mg 12/31/16 12:30 01/01/17 09:25 Folic Acid PO 1 mg DAILY JESUS Administration Dexmedetomidine HCl 400 mcg in 100 mls @ 10.319 mls/hr 12/31/16 02:10 11:37 Precedex 4 Mcg/Ml (100 Ml) IV 0.2 mcg/kg/hr .Q9H42M PRN 2.948 mls/hr Agitation Administration Protocol 0.7 MCG/KG/HR Sodium Chloride 1,000 mls @ 500 mls/hr 01/01/17 10:14 01/01/17 14:58 Sodium Chloride 0.9% IV 01/02/17 10:15 500 mls/hr .Q2H JESUS Administration Multivitamins/Minerals 1 tab 12/31/16 12:30 01/01/17 09:25 Therapeutic-M Tab PO 1 tab DAILY JESUS Administration Pantoprazole Sodium 40 mg 01/01/17 22:00 Protonix Inj IVP Q12 JESUS Thiamine HCl 100 mg 12/31/16 10:00 01/01/17 09:25 Vitamin B1 Tab PO 100 mg DAILY JESUS Administration Thiamine HCl 100 mg 12/31/16 10:00 12/31/16 11:07 Vitamin B1 Inj IV 100 mg DAILY JESUS Administration - Patient Studies Lab Studies: Lab Studies 01/01/17 01/01/17 01/01/17 Range/Units 14:00 13:50 06:30 WBC (4.5-11.0) 10^3/ul RBC (3.5-6.1) 10^6/uL Hgb (14.0-18.0) gm/dL Hct (42.0-52.0) % MCV (80.0-105.0) fL MCH (25.0-35.0) pg MCHC (31.0-37.0) g/dl RDW (11.5-14.5) % Plt Count (120.0-450.0) 10^3/uL MPV (7.0-11.0) fl Gran % (50.0-68.0) % Lymph % (Auto) (22.0-35.0) % [place] % (Auto) (1.0-6.0) % Eos % (Auto) (1.5-5.0) % Baso % (Auto) (0.0-3.0) % Gran # (1.4-6.5) Lymph # (1.2-3.4) [place] # (0.1-0.6) Eos # (0.0-0.7) Baso # (0.0-2.0) K/mm3 Sodium (132-148) mmol/L Potassium (3.6-5.0) mmol/L Chloride (98-107) mmol/L Carbon Dioxide (21-33) mmol/L Anion Gap (10-20) BUN (7-21) mg/dL Creatinine (0.5-1.4) mg/dL Est GFR ( Amer) Est GFR (Non-Af Amer) POC Glucose (mg/dL) (65-110) mg/dL Random Glucose (70-110) mg/dL Lactic Acid (0.7-2.1) mmol/L Calcium (8.4-10.5) mg/dL Phosphorus (2.5-4.5) mg/dL Magnesium 1.5 L (1.7-2.2) mg/dL Total Bilirubin (0.2-1.3) mg/dL AST (15-59) U/L ALT (7-56) U/L Alkaline Phosphatase (38-133) U/L Total Creatine Kinase 70827 H 985513 H (35-230) U/L CK-MB (CK-2) 3.0 (0.0-3.6) ng/mL CK-MB (CK-2) % Cancelled Total Protein (5.8-8.3) g/dL Albumin (3.0-4.8) g/dL Globulin gm/dL Albumin/Globulin Ratio (1.1-1.8) Lipase 160 (23-300) U/L 25-OH Vitamin D Total (30.0-100.0) NG/ML Urine Osmolality 266 (50-645) mosm/kg Ur Random Sodium 108 meq/L 01/01/17 01/01/17 01/01/17 Range/Units 05:30 05:30 05:30 WBC 9.8 D (4.5-11.0) 10^3/ul RBC 3.46 L (3.5-6.1) 10^6/uL Hgb 10.5 L (14.0-18.0) gm/dL Hct 29.4 L (42.0-52.0) % MCV 85.0 (80.0-105.0) fL MCH 30.3 (25.0-35.0) pg MCHC 35.7 (31.0-37.0) g/dl RDW 13.3 (11.5-14.5) % Plt Count 141 (120.0-450.0) 10^3/uL MPV 9.3 (7.0-11.0) fl Gran % 70.5 H (50.0-68.0) % Lymph % (Auto) 20.0 L (22.0-35.0) % [place] % (Auto) 8.2 H (1.0-6.0) % Eos % (Auto) 1.2 L (1.5-5.0) % Baso % (Auto) 0.1 (0.0-3.0) % Gran # 6.88 H (1.4-6.5) Lymph # 2.0 (1.2-3.4) [place] # 0.8 H (0.1-0.6) Eos # 0.1 (0.0-0.7) Baso # 0.01 (0.0-2.0) K/mm3 Sodium 131 L (132-148) mmol/L Potassium 3.2 L (3.6-5.0) mmol/L Chloride 101 (98-107) mmol/L Carbon Dioxide 23 (21-33) mmol/L Anion Gap 10 (10-20) BUN < 2 L (7-21) mg/dL Creatinine 0.5 (0.5-1.4) mg/dL Est GFR ( Amer) > 60 Est GFR (Non-Af Amer) > 60 POC Glucose (mg/dL) (65-110) mg/dL Random Glucose 101 (70-110) mg/dL Lactic Acid (0.7-2.1) mmol/L Calcium 6.9 L* (8.4-10.5) mg/dL Phosphorus 2.5 (2.5-4.5) mg/dL Magnesium (1.7-2.2) mg/dL Total Bilirubin 0.6 (0.2-1.3) mg/dL AST 687 H (15-59) U/L ALT 148 H (7-56) U/L Alkaline Phosphatase 51 (38-133) U/L Total Creatine Kinase (35-230) U/L CK-MB (CK-2) (0.0-3.6) ng/mL CK-MB (CK-2) % Total Protein 6.0 (5.8-8.3) g/dL Albumin 3.2 (3.0-4.8) g/dL Globulin 2.7 gm/dL Albumin/Globulin Ratio 1.2 (1.1-1.8) Lipase (23-300) U/L 25-OH Vitamin D Total < 12.8 L (30.0-100.0) NG/ML Urine Osmolality (50-645) mosm/kg Ur Random Sodium meq/L 12/31/16 12/31/16 12/31/16 Range/Units 21:30 16:00 16:00 WBC (4.5-11.0) 10^3/ul RBC (3.5-6.1) 10^6/uL Hgb (14.0-18.0) gm/dL Hct (42.0-52.0) % MCV (80.0-105.0) fL MCH (25.0-35.0) pg MCHC (31.0-37.0) g/dl RDW (11.5-14.5) % Plt Count (120.0-450.0) 10^3/uL MPV (7.0-11.0) fl Gran % (50.0-68.0) % Lymph % (Auto) (22.0-35.0) % [place] % (Auto) (1.0-6.0) % Eos % (Auto) (1.5-5.0) % Baso % (Auto) (0.0-3.0) % Gran # (1.4-6.5) Lymph # (1.2-3.4) [place] # (0.1-0.6) Eos # (0.0-0.7) Baso # (0.0-2.0) K/mm3 Sodium 132 136 (132-148) mmol/L Potassium 3.8 3.5 L (3.6-5.0) mmol/L Chloride 101 108 H (98-107) mmol/L Carbon Dioxide 22 26 (21-33) mmol/L Anion Gap 13 6 L (10-20) BUN < 2 L 3 L (7-21) mg/dL Creatinine 0.5 0.6 (0.5-1.4) mg/dL Est GFR ( Amer) > 60 > 60 Est GFR (Non-Af Amer) > 60 > 60 POC Glucose (mg/dL) (65-110) mg/dL Random Glucose 89 76 (70-110) mg/dL Lactic Acid 0.6 L (0.7-2.1) mmol/L Calcium 7.2 L 6.0 L* (8.4-10.5) mg/dL Phosphorus (2.5-4.5) mg/dL Magnesium (1.7-2.2) mg/dL Total Bilirubin (0.2-1.3) mg/dL AST (15-59) U/L ALT (7-56) U/L Alkaline Phosphatase (38-133) U/L Total Creatine Kinase 64223 H (35-230) U/L CK-MB (CK-2) 2.9 (0.0-3.6) ng/mL CK-MB (CK-2) % Cancelled Total Protein (5.8-8.3) g/dL Albumin (3.0-4.8) g/dL Globulin gm/dL Albumin/Globulin Ratio (1.1-1.8) Lipase (23-300) U/L 25-OH Vitamin D Total (30.0-100.0) NG/ML Urine Osmolality (50-645) mosm/kg Ur Random Sodium meq/L 12/31/16 12/31/16 Range/Units 11:29 07:44 WBC (4.5-11.0) 10^3/ul RBC (3.5-6.1) 10^6/uL Hgb (14.0-18.0) gm/dL Hct (42.0-52.0) % MCV (80.0-105.0) fL MCH (25.0-35.0) pg MCHC (31.0-37.0) g/dl RDW (11.5-14.5) % Plt Count (120.0-450.0) 10^3/uL MPV (7.0-11.0) fl Gran % (50.0-68.0) % Lymph % (Auto) (22.0-35.0) % [place] % (Auto) (1.0-6.0) % Eos % (Auto) (1.5-5.0) % Baso % (Auto) (0.0-3.0) % Gran # (1.4-6.5) Lymph # (1.2-3.4) [place] # (0.1-0.6) Eos # (0.0-0.7) Baso # (0.0-2.0) K/mm3 Sodium (132-148) mmol/L Potassium (3.6-5.0) mmol/L Chloride (98-107) mmol/L Carbon Dioxide (21-33) mmol/L Anion Gap (10-20) BUN (7-21) mg/dL Creatinine (0.5-1.4) mg/dL Est GFR ( Amer) Est GFR (Non-Af Amer) POC Glucose (mg/dL) 90 91 (65-110) mg/dL Random Glucose (70-110) mg/dL Lactic Acid (0.7-2.1) mmol/L Calcium (8.4-10.5) mg/dL Phosphorus (2.5-4.5) mg/dL Magnesium (1.7-2.2) mg/dL Total Bilirubin (0.2-1.3) mg/dL AST (15-59) U/L ALT (7-56) U/L Alkaline Phosphatase (38-133) U/L Total Creatine Kinase (35-230) U/L CK-MB (CK-2) (0.0-3.6) ng/mL CK-MB (CK-2) % Total Protein (5.8-8.3) g/dL Albumin (3.0-4.8) g/dL Globulin gm/dL Albumin/Globulin Ratio (1.1-1.8) Lipase (23-300) U/L 25-OH Vitamin D Total (30.0-100.0) NG/ML Urine Osmolality (50-645) mosm/kg Ur Random Sodium meq/L Laboratory Results - last 24 hr 12/31/16 12/31/16 12/31/16 07:44 11:29 16:00 WBC RBC Hgb Hct MCV MCH MCHC RDW Plt Count MPV Gran % Lymph % (Auto) [place] % (Auto) Eos % (Auto) Baso % (Auto) Gran # Lymph # [place] # Eos # Baso # Sodium 136 Potassium 3.5 L Chloride 108 H Carbon Dioxide 26 Anion Gap 6 L BUN 3 L Creatinine 0.6 Est GFR ( Amer) > 60 Est GFR (Non-Af Amer) > 60 POC Glucose (mg/dL) 91 90 Random Glucose 76 Lactic Acid Calcium 6.0 L* Phosphorus Magnesium Total Bilirubin AST ALT Alkaline Phosphatase Total Creatine Kinase 69418 H CK-MB (CK-2) 2.9 CK-MB (CK-2) % Cancelled Total Protein Albumin Globulin Albumin/Globulin Ratio Lipase 25-OH Vitamin D Total Urine Osmolality Ur Random Sodium 12/31/16 12/31/16 01/01/17 16:00 21:30 05:30 WBC 9.8 D RBC 3.46 L Hgb 10.5 L Hct 29.4 L MCV 85.0 MCH 30.3 MCHC 35.7 RDW 13.3 Plt Count 141 MPV 9.3 Gran % 70.5 H Lymph % (Auto) 20.0 L [place] % (Auto) 8.2 H Eos % (Auto) 1.2 L Baso % (Auto) 0.1 Gran # 6.88 H Lymph # 2.0 [place] # 0.8 H Eos # 0.1 Baso # 0.01 Sodium 132 Potassium 3.8 Chloride 101 Carbon Dioxide 22 Anion Gap 13 BUN < 2 L Creatinine 0.5 Est GFR ( Amer) > 60 Est GFR (Non-Af Amer) > 60 POC Glucose (mg/dL) Random Glucose 89 Lactic Acid 0.6 L Calcium 7.2 L Phosphorus Magnesium Total Bilirubin AST ALT Alkaline Phosphatase Total Creatine Kinase CK-MB (CK-2) CK-MB (CK-2) % Total Protein Albumin Globulin Albumin/Globulin Ratio Lipase 25-OH Vitamin D Total Urine Osmolality Ur Random Sodium 01/01/17 01/01/17 01/01/17 05:30 05:30 06:30 WBC RBC Hgb Hct MCV MCH MCHC RDW Plt Count MPV Gran % Lymph % (Auto) [place] % (Auto) Eos % (Auto) Baso % (Auto) Gran # Lymph # [place] # Eos # Baso # Sodium 131 L Potassium 3.2 L Chloride 101 Carbon Dioxide 23 Anion Gap 10 BUN < 2 L Creatinine 0.5 Est GFR ( Amer) > 60 Est GFR (Non-Af Amer) > 60 POC Glucose (mg/dL) Random Glucose 101 Lactic Acid Calcium 6.9 L* Phosphorus 2.5 Magnesium 1.5 L Total Bilirubin 0.6 AST 687 H ALT 148 H Alkaline Phosphatase 51 Total Creatine Kinase 866351 H CK-MB (CK-2) CK-MB (CK-2) % Total Protein 6.0 Albumin 3.2 Globulin 2.7 Albumin/Globulin Ratio 1.2 Lipase 25-OH Vitamin D Total < 12.8 L Urine Osmolality Ur Random Sodium 01/01/17 01/01/17 13:50 14:00 WBC RBC Hgb Hct MCV MCH MCHC RDW Plt Count MPV Gran % Lymph % (Auto) [place] % (Auto) Eos % (Auto) Baso % (Auto) Gran # Lymph # [place] # Eos # Baso # Sodium Potassium Chloride Carbon Dioxide Anion Gap BUN Creatinine Est GFR ( Amer) Est GFR (Non-Af Amer) POC Glucose (mg/dL) Random Glucose Lactic Acid Calcium Phosphorus Magnesium Total Bilirubin AST ALT Alkaline Phosphatase Total Creatine Kinase 11023 H CK-MB (CK-2) 3.0 CK-MB (CK-2) % Cancelled Total Protein Albumin Globulin Albumin/Globulin Ratio Lipase 160 25-OH Vitamin D Total Urine Osmolality 266 Ur Random Sodium 108 Critical Care Progress Note - Nutrition Nutrition: Nutrition Category Date Time Status Liquid Diet [DIET] Diets 01/01/17 Lunch Ordered Regular Diet [DIET] Diets 01/01/17 Dinner Ordered Attending/Attestation - Attestation I have personally seen and examined this patient.: Yes I have fully participated in the care of the patient.: Yes I have reviewed all pertinent clinical information: Yes Notes (Text): 01/01/17 15:49 31 y/o M improving from DT. No further GI bleeding . HGB stable. PPI drip changed to BID, Octreotide stopped. Diet advanced as tolerated. Hyponatremia resolved in 36 hrs. No mental status changes. DT- On precedex .2 w/ ativan prn . Ativan d/c for now . Use precedex as needed Rhabdomyolysis - ck increased overnight without any cause. On Normal saline 500ml/hr now. Need to correct K and Phos. Creatnine and urine output intact. cc time 65 min
--- NOTE | 2017-01-01 10:41 | RAD ---
HISTORY: rhonchi COMPARISON: 12/29/2016 FINDINGS: LUNGS: No active pulmonary disease. PLEURA: No significant pleural effusion identified, no pneumothorax apparent. CARDIOVASCULAR: Normal. OSSEOUS STRUCTURES: No significant abnormalities. VISUALIZED UPPER ABDOMEN: Normal. OTHER FINDINGS: None. IMPRESSION: No active disease.
[2017-01-01] MEDS: Dexmedetomidine HCl 4mcg/ml 400 MCG/100 ML BOTTLE IV PRN (11:37)
[2017-01-01] MEDS ORDERED: Potassium Chloride 20 mEq ER Tab PO ONE (13:14)
--- NOTE | 2017-01-01 15:23 | CP.PCM.PN ---
<Serafin Tineo - Last Filed: 01/01/17 15:19> Subjective - Date & Time of Evaluation Date of Evaluation: 01/01/17 Time of Evaluation: 08:20 - Subjective Subjective: HOSPITALISTS PROGRESS NOTE Pt is seen and examined at bedside. Overnight, pt. was restless again and currently has restraints and is on a 1:1. Patient was awake and in no acute distress. He denies having any CP, SOB, abd pain, nausea, or vomiting. He does complain of diarrhea. Objective - Vital Signs/Intake and Output Vital Signs (last 24 hours): Temp Pulse Resp BP Pulse Ox 98.2 F 75 15 101/52 L 100 01/01/17 12:00 01/01/17 13:30 01/01/17 13:30 01/01/17 13:01 01/01/17 13:30 Intake and Output: 01/01/17 01/01/17 06:59 18:59 Intake Total 4130 0.2 Output Total 4300 Balance -170 0.2 - Medications Medications: Current Medications Folic Acid (Folic Acid) 1 mg PO DAILY [facility] Last Admin: 01/01/17 09:25 Dose: 1 mg Dexmedetomidine HCl (Precedex 4 Mcg/Ml (100 Ml)) 400 mcg in 100 mls @ 10.319 mls/hr IV .Q9H42M PRN; Protocol; 0.7 MCG/KG/HR PRN Reason: Agitation Last Admin: 01/01/17 11:37 Dose: 0.2 mcg/kg/hr, 2.948 mls/hr Sodium Chloride (Sodium Chloride 0.9%) 1,000 mls @ 500 mls/hr IV .Q2H [facility] Stop: 01/02/17 10:15 Last Admin: 01/01/17 14:58 Dose: 500 mls/hr Multivitamins/Minerals (Therapeutic-M Tab) 1 tab PO DAILY [facility] Last Admin: 01/01/17 09:25 Dose: 1 tab Pantoprazole Sodium (Protonix Inj) 40 mg IVP Q12 [facility] Thiamine HCl (Vitamin B1 Tab) 100 mg PO DAILY [facility] Last Admin: 01/01/17 09:25 Dose: 100 mg Thiamine HCl (Vitamin B1 Inj) 100 mg IV DAILY [facility] Last Admin: 12/31/16 11:07 Dose: 100 mg - Labs Labs: 01/01/17 05:30 01/01/17 05:30 PT 12.6 Seconds (9.9-11.8) H 12/29/16 07:14 INR 1.17 (0.93-1.08) H 12/29/16 07:14 APTT 28.7 Seconds (23.7-30.8) 12/29/16 07:14 - Constitutional Appears: Non-toxic, No Acute Distress - Head Exam Head Exam: ATRAUMATIC, NORMOCEPHALIC - Eye Exam Eye Exam: EOMI - ENT Exam ENT Exam: Mucous Membranes Moist - Neck Exam Neck Exam: Full ROM. absent: Lymphadenopathy, Thyromegaly - Respiratory Exam Respiratory Exam: Clear to Ausculation Bilateral, Rhonchi, NORMAL BREATHING PATTERN - Cardiovascular Exam Cardiovascular Exam: REGULAR RHYTHM, RRR, +S1, +S2. absent: JVD - GI/Abdominal Exam GI & Abdominal Exam: Soft, Normal Bowel Sounds. absent: Tenderness - Extremities Exam Extremities Exam: absent: Joint Swelling, Tenderness - Back Exam Back Exam: NORMAL INSPECTION - Neurological Exam Neurological Exam: Alert, Awake, CN II-XII Intact, Normal Gait, Oriented x3 - Psychiatric Exam Psychiatric exam: Normal Affect, Normal Mood - Skin Skin Exam: Dry, Intact, Normal Color, Warm Assessment and Plan - Assessment and Plan (Free Text) Assessment: 31 y/o M with past medical history of ETOH abuse and seizures presents to ED s/ p seizure likely 2/2 to alcohol abuse. Plan: Alcohol Abuse/Withdrawal Precedex drip Multi-Vit Thiamine Folic Acid Ativan 2mg PRN Abdominal US - please see full report -fatty liver vs parenchymal disease Psych Consult - Dr. Mattson - help appreciated -pt. still having withdrawal symptoms in light of being on precedex and Ativan Septic Shock - resolved CBC- leukocytosis -resovled Blood culture - No Growth in 3 days Urine culture No Growth MRSA screen - not detected VBG -respiratory alkalosis on admission VBG -improving -pO2 33, pCO2 40, HCO3 22, pH 7.36, Lactate 4.4 Aztreonam in the ED HIV negative Hep Panel negative ID Consult - Dr. Clarke, appreciate recs -Vancomycin and Rocephin stopped -Will follow Seizures Keppra 500mg q12 Neuro Consult - Dr. Ashok Ruffin, appreciate recs -Head CT - please see full report -No Acute findings, with evidence of chronic ischemic changes -MRI of brain showe dno acute changes. -Showed 12 mm lesion at left basal ganglia possible old infarct vs encephalomalacia with blood product. -EEG - please see full report -no signs of seizure activity -Cont Keppra -Cont to jacob electrolytes and correct -Will sign off GI Bleed Protonix drip octreotide drip GI Consult Dr. Rm, appreciate recs -No plan for EGD currently -advance diet as tolerated advanced diet to regular on 01/01 Electrolyte Imbalance Nephrology, Dr. Chirinos is consulted -Rhabdomyolysis -cont aggressive IV fluids -Hypophosphatemia -cont aggressive IV fluids -Hyponatremia -cont fluids, given desmopressin 2mcg to avoid rapid rise -goal of low 130's -Hypokalemia -goal level of no more than 3.5mEq/liter -Will continue to monitor <Ayala Tovar - Last Filed: 01/01/17 16:23> Objective - Vital Signs/Intake and Output Vital Signs (last 24 hours): Temp Pulse Resp BP Pulse Ox 97.7 F 59 L 15 75/41 L 98 01/01/17 16:00 01/01/17 16:00 01/01/17 16:00 01/01/17 16:00 01/01/17 16:00 Intake and Output: 01/01/17 01/01/17 06:59 18:59 Intake Total 4130 0.2 Output Total 4300 Balance -170 0.2 - Medications Medications: Current Medications Folic Acid (Folic Acid) 1 mg PO DAILY [facility] Last Admin: 01/01/17 09:25 Dose: 1 mg Dexmedetomidine HCl (Precedex 4 Mcg/Ml (100 Ml)) 400 mcg in 100 mls @ 10.319 mls/hr IV .Q9H42M PRN; Protocol; 0.7 MCG/KG/HR PRN Reason: Agitation Last Admin: 01/01/17 11:37 Dose: 0.2 mcg/kg/hr, 2.948 mls/hr Sodium Chloride (Sodium Chloride 0.9%) 1,000 mls @ 500 mls/hr IV .Q2H [facility] Stop: 01/02/17 10:15 Last Admin: 01/01/17 14:58 Dose: 500 mls/hr Multivitamins/Minerals (Therapeutic-M Tab) 1 tab PO DAILY [facility] Last Admin: 01/01/17 09:25 Dose: 1 tab Pantoprazole Sodium (Protonix Inj) 40 mg IVP Q12 [facility] Thiamine HCl (Vitamin B1 Tab) 100 mg PO DAILY [facility] Last Admin: 01/01/17 09:25 Dose: 100 mg Thiamine HCl (Vitamin B1 Inj) 100 mg IV DAILY [facility] Last Admin: 12/31/16 11:07 Dose: 100 mg - Labs Labs: 01/01/17 05:30 01/01/17 05:30 PT 12.6 Seconds (9.9-11.8) H 12/29/16 07:14 INR 1.17 (0.93-1.08) H 12/29/16 07:14 APTT 28.7 Seconds (23.7-30.8) 12/29/16 07:14 Attending/Attestation - Attestation I have personally seen and examined this patient.: Yes I have fully participated in the care of the patient.: Yes I have reviewed all pertinent clinical information, including history, physical exam and plan: Yes Notes (Text): I have seen and examined patient at bedside. Agree with the above note with the following additions/ exceptions: This is 31 year old Serbian speaking male with history of multiple seizures, alcohol abuse, who was brought in ED for evaluation of seizure, headache, dizziness, bloody vomiting and sore throat. Upon admission he was found to be in septic shock/SIRS and was admitted to ICU. He also had hematemesis , hyponatremia, hypochloremia and was going thru alcohol withdrawal syndrome. 1 day ago thiago toney was called on this patient as he was going thru severe alcohol withdrawal. He was started on precedex drip. Today he was alert and oriented to time and place. Patient appears comfortable. Continue ativan prn. Avoid librium due to transaminitis. He was found to have elevated CK/ rhabdomyolysis. Plan to continue IVF. Leukocytosis and elevated lactic acid was most likely reactive. Procal normal. CXR normal. Antibiotics stopped. CT head showed chronic ischemic changes. 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 EEG showed diffuse bilateral cerebral dysfunction and no seizure activity. Continue keppra. Hyponatremia most likely due to volume depletion and poor dietary intake. Sodium continues to improve. Today Na is 131. Renal on board. No further episodes of hematemesis. There is no plan for EGD. He has been tolerating clear liquid diet. Will advance to regular diet. Now on po protonix. Protonix and octreotide drips were stopped today. LFTs are elevated. Hep panel and HIV negative. Abdominal ultrasound showed fatty liver vs parenchymal disease. Dr Ayala Tovar
[2017-01-02] MEDS: Sodium Chloride 0.9% 1,000 ML IV SCH ×5 (01:10→23:00)
[2017-01-02 05:37] LABS: ADD MANUAL DIFF? NO
[2017-01-02 05:46] LABS: BASO # 0.02 K/mm3 (0.0-2.0); BASO % 0.3 % (0.0-3.0); EOS # 0.1 (0.0-0.7); GRAN # 3.93 (1.4-6.5); GRAN % 55.4 % (50.0-68.0); HEMATOCRIT 28.9 % (42.0-52.0); LYMPH # 2.4 (1.2-3.4); LYMPH % 33.6 % (22.0-35.0); MEAN CELL VOLUME 86.8 fL (80.0-105.0); MEAN CORPUSCULAR HEMOGLOBIN 30.3 pg (25.0-35.0); MEAN CORPUSCULAR HGB CONC 34.9 g/dl (31.0-37.0); MEAN PLATELET VOLUME 9.1 fl (7.0-11.0); MONO # 0.6 (0.1-0.6); MONO % 8.7 % (1.0-6.0); PLATELET COUNT 153 10^3/uL (120.0-450.0); RED CELL DISTRIBUTION WIDTH 14.1 % (11.5-14.5); WHITE BLOOD COUNT 7.1 10^3/ul (4.5-11.0)
[2017-01-02 05:51] LABS: ALB/GLOB RATIO 1.3 (1.1-1.8); ALKALINE PHOSPHATASE 56 U/L (38-133); ALT/SGPT 133 U/L (7-56); BILIRUBIN,TOTAL 0.3 mg/dL (0.2-1.3); BLOOD UREA NITROGEN < 2 mg/dL (7-21); CARBON DIOXIDE 23 mmol/L (21-33); CHLORIDE 108 mmol/L (95-110); GFR AFRICAN-AMERICAN > 60; GLUCOSE,RANDOM 84 mg/dL (70-110); MAGNESIUM 1.8 mg/dL (1.7-2.2); PHOSPHOROUS 2.4 mg/dL (2.5-4.5); POTASSIUM 3.6 mmol/L (3.6-5.0); SODIUM 136 mmol/L (132-148); TOTAL PROTEIN 5.7 g/dL (5.8-8.3)
[2017-01-02 05:54] LABS: AST/SGOT 521 U/L (15-59)
[2017-01-02 05:55] LABS: CALCIUM 6.9 mg/dL (8.4-10.5)
--- NOTE | 2017-01-02 06:33 | PN ---
DATE: 01/02/2017 The patient is a 31-year-old male seen on behalf of Dr. Mauricio Rm, who will be back from vacation tomorrow. I was called by the nurses yesterday regarding advance of the patient's diet. Note that Dr. Rm had been covering this patient during his current admission. I reviewed the case with the nurses yesterday on the phone. I evaluated the patient in person this morning. In discussion with the nurses in ICU, the patient is currently clinically stable from a GI point of view. No abdominal pain, no nausea or vomiting. No hematemesis. No rectal bleeding. Hemoglobin is relatively stable. PHYSICAL EXAMINATION: VITAL SIGNS: I reviewed this patient's vital signs. HEENT: Noncontributory. LUNGS: Decreased breath sounds basilar. HEART: Regular rhythm. ABDOMEN: Soft. No tenderness elicited. I reviewed this patient's laboratory data. H and H, as of yesterday, 10.12/03, which is stable, relative to day of admission. I reviewed the orders including PPI of 40 IV q. 12. He previously was on octreotide temporarily. The other orders have been reviewed, including thiamine, potassium, chloride, magnesium, folate, calcium, etc. OVERALL ASSESSMENT: This is a 31-year-old male admitted with complaints of DTs, alcohol withdrawal, 1 episode of hematemesis. The patient is clinically stable on the current clinical regimen as indicated by Dr. Rm and the house staff, including Dr. Tovar. I reviewed the patient's reports. New clinical findings include hyponatremia which is being treated by renal as is elevated LFTs including CPK which is indicative of severe rhabdomyolysis. This is being addressed by renal department. Since the patient is doing well on the current diet, which consists of full liquids, I would maintain the patient on the current diet, at least for today, and address further advance diet with Dr. Rm when he returns tomorrow. Tao Redmond DO, PhD cc: [id number] TT: 01/02/2017 06:32:07 Confirmation # [id number] Dictation # [id number] alejandra CONTI
[2017-01-02] MEDS ORDERED: Sodium Chloride 0.9% 1,000 ML IV SCH (07:30)
[2017-01-02] MEDS ORDERED: Potassium Phosphate 15 MMOLE in Dextrose 5% In Water 250 ML IVPB ONE (08:52)
[2017-01-02] MEDS ORDERED: Magnesium Sulfate 1 gm in D5W 1 GM/100 ML BAG IVPB ONE (08:52)
[2017-01-02] MEDS: Multivitamin With Minerals Tab PO SCH (09:28)
--- NOTE | 2017-01-02 10:32 | CP.CCUPN ---
<Lois Lopez - Last Filed: 01/02/17 10:37> CCU Subjective - Physician Review Events Since Last Encounter (Free Text): 01/02/17 10:25 Pt s/e at bedside in the ICU this AM. NAEO. Patient did not have any more episodes of agitation or confusion overnight and slept well. Patient is calm, Awake, alert and oriented x4, and shows good insight to his ETOH abuse and that he is going through withdrawal. Denies any agitation, anxiety, tremors, chest pain, SOB, nausea, vomiting, hematemesis, fevers, or chills. Tolerating regular diet well. Dr. Louis and Dr. Wolf had a long discussion regarding possible consequences of his ETOH abuse including hepatic failure, coagulation problems, GI bleeds, seizures, delirium and . Patient was strongly counseled that he needed to abstain from alcohol, and patient expressed understanding and that he wants to quit. 01/02/17 10:35 CCU Objective - Vital Signs / Intake & Output Vital Signs (Last 4 hours): Vital Signs Pulse Resp BP Pulse Ox 01/02/17 08:00 81 16 140/94 H 100 01/02/17 07:30 91 H 17 99 01/02/17 07:00 96 H 16 151/98 H 100 01/02/17 06:30 93 H 19 100 Intake and Output (Last 8hrs): Intake & Output 01/01/17 01/02/17 01/02/17 22:59 06:59 14:59 Intake Total 5800 6250 Output Total 3902 9350 Balance 1898 -3100 Weight 58.513 kg Intake: IV 4800 6100 Left Forearm 4000 Left Hand 800 6100 Oral 1000 150 Output: Urine 3900 9050 Urethral (Cespedes) 3900 9050 Stool 2 Urine/Stool Mix 300 Other: # Bowel Movements 2 2 - Physical Exam Head: Positive for: Atraumatic, Normocephalic Pupils: Positive for: PERRL Extroacular Muscles: Positive for: EOMI Conjunctiva: Positive for: Normal Ears: Positive for: Normal Mouth: Positive for: Moist Mucous Membranes, Normal Lips, Normal Tounge Pharnyx: Positive for: Normal Nose (External): Positive for: Atraumatic Neck: Positive for: Normal Range of Motion Respiratory/Chest: Positive for: Clear to Auscultation, Good Air Exchange. Negative for: Respiratory Distress, Accessory Muscle Use Cardiovascular: Positive for: Regular Rate and Rhythm, Normal S1, S2. Negative for: Murmurs Abdomen: Positive for: Normal Bowel Sounds. Negative for: Tenderness, Distention, Peritoneal Signs Genitourinary Male: Positive for: Other (Cespedes catheter in place) Back: Positive for: Normal Inspection. Negative for: CVA Tenderness Upper Extremity: Positive for: Normal Inspection. Negative for: Cyanosis, Edema Lower Extremity: Positive for: Normal Inspection, NORMAL PULSES. Negative for: Edema, CALF TENDERNESS Neurological: Positive for: GCS=15, CN II-XII Intact, Speech Normal, Motor Func Grossly Intact, Other (no tremors) Skin: Positive for: Warm, Dry, Normal Color. Negative for: Rashes Psychiatric: Positive for: Alert, Oriented x 3, Normal Insight, Normal Concentration, Normal Affect, Normal Mood. Negative for: Agitated - Medications Active Medications: Active Medications Generic Name Dose Route Start Last Admin Trade Name Freq PRN Reason Stop Dose Admin Calcium Carbonate 600 mg 01/02/17 10:00 01/02/17 09:28 Caltrate PO 600 mg DAILY JESUS Administration Chlordiazepoxide 5 mg 01/02/17 09:00 01/02/17 09:44 Librium PO 5 mg Q8 JESUS Administration Protocol Cholecalciferol 4,000 iu 01/02/17 10:00 01/02/17 09:28 Vitamin D PO 4,000 iu DAILY JESUS Administration Folic Acid 1 mg 12/31/16 12:30 01/02/17 09:28 Folic Acid PO 1 mg DAILY JESUS Administration Haloperidol 0.5 mg 01/02/17 10:16 Haldol PO Q6 PRN Agitation Protocol Dexmedetomidine HCl 400 mcg in 100 mls @ 10.319 mls/hr 12/31/16 02:10 11:37 Precedex 4 Mcg/Ml (100 Ml) IV 0.2 mcg/kg/hr .Q9H42M PRN 2.948 mls/hr Agitation Administration Protocol 0.7 MCG/KG/HR Potassium Phosphate 15 mmole/ 255 mls @ 42.5 mls/hr 01/02/17 08:52 Dextrose IVPB 01/02/17 14:51 ONCE ONE Lorazepam 1 mg 01/02/17 08:50 Ativan IVP Q6H PRN Anxiety Protocol Multivitamins/Minerals 1 tab 12/31/16 12:30 01/02/17 09:28 Therapeutic-M Tab PO 1 tab DAILY JESUS Administration Pantoprazole Sodium 40 mg 01/01/17 22:00 01/02/17 09:28 Protonix Inj IVP 40 mg Q12 JESUS Administration Thiamine HCl 100 mg 12/31/16 10:00 01/02/17 09:28 Vitamin B1 Tab PO 100 mg DAILY JESUS Administration Thiamine HCl 100 mg 12/31/16 10:00 12/31/16 11:07 Vitamin B1 Inj IV 100 mg DAILY JESUS Administration - Patient Studies Lab Studies: Lab Studies 01/02/17 01/02/17 01/02/17 Range/Units 05:20 05:20 05:20 WBC 7.1 D (4.5-11.0) 10^3/ul RBC 3.33 L (3.5-6.1) 10^6/uL Hgb 10.1 L (14.0-18.0) gm/dL Hct 28.9 L (42.0-52.0) % MCV 86.8 (80.0-105.0) fL MCH 30.3 (25.0-35.0) pg MCHC 34.9 (31.0-37.0) g/dl RDW 14.1 (11.5-14.5) % Plt Count 153 (120.0-450.0) 10^3/uL MPV 9.1 (7.0-11.0) fl Gran % 55.4 (50.0-68.0) % Lymph % (Auto) 33.6 (22.0-35.0) % [place] % (Auto) 8.7 H (1.0-6.0) % Eos % (Auto) 2.0 (1.5-5.0) % Baso % (Auto) 0.3 (0.0-3.0) % Gran # 3.93 (1.4-6.5) Lymph # 2.4 (1.2-3.4) [place] # 0.6 (0.1-0.6) Eos # 0.1 (0.0-0.7) Baso # 0.02 (0.0-2.0) K/mm3 Sodium 136 (132-148) mmol/L Potassium 3.6 (3.6-5.0) mmol/L Chloride 108 (95-110) mmol/L Carbon Dioxide 23 (21-33) mmol/L Anion Gap 9 L (10-20) BUN < 2 L (7-21) mg/dL Creatinine 0.5 (0.5-1.4) mg/dL Est GFR ( Amer) > 60 Est GFR (Non-Af Amer) > 60 Random Glucose 84 (70-110) mg/dL Calcium 6.9 L* (8.4-10.5) mg/dL Phosphorus 2.4 L (2.5-4.5) mg/dL Magnesium 1.8 (1.7-2.2) mg/dL Total Bilirubin 0.3 (0.2-1.3) mg/dL AST 521 H (15-59) U/L ALT 133 H (7-56) U/L Alkaline Phosphatase 56 (38-133) U/L Total Creatine Kinase 81434 H (35-230) U/L CK-MB (CK-2) 1.8 (0.0-3.6) ng/mL CK-MB (CK-2) % Cancelled Total Protein 5.7 L (5.8-8.3) g/dL Albumin 3.2 (3.0-4.8) g/dL Globulin 2.6 gm/dL Albumin/Globulin Ratio 1.3 (1.1-1.8) Lipase (23-300) U/L 25-OH Vitamin D Total (30.0-100.0) NG/ML Urine Osmolality (50-645) mosm/kg Ur Random Sodium meq/L 01/01/17 01/01/17 01/01/17 Range/Units 14:00 13:50 05:30 WBC (4.5-11.0) 10^3/ul RBC (3.5-6.1) 10^6/uL Hgb (14.0-18.0) gm/dL Hct (42.0-52.0) % MCV (80.0-105.0) fL MCH (25.0-35.0) pg MCHC (31.0-37.0) g/dl RDW (11.5-14.5) % Plt Count (120.0-450.0) 10^3/uL MPV (7.0-11.0) fl Gran % (50.0-68.0) % Lymph % (Auto) (22.0-35.0) % [place] % (Auto) (1.0-6.0) % Eos % (Auto) (1.5-5.0) % Baso % (Auto) (0.0-3.0) % Gran # (1.4-6.5) Lymph # (1.2-3.4) [place] # (0.1-0.6) Eos # (0.0-0.7) Baso # (0.0-2.0) K/mm3 Sodium (132-148) mmol/L Potassium (3.6-5.0) mmol/L Chloride (95-110) mmol/L Carbon Dioxide (21-33) mmol/L Anion Gap (10-20) BUN (7-21) mg/dL Creatinine (0.5-1.4) mg/dL Est GFR ( Amer) Est GFR (Non-Af Amer) Random Glucose (70-110) mg/dL Calcium (8.4-10.5) mg/dL Phosphorus (2.5-4.5) mg/dL Magnesium (1.7-2.2) mg/dL Total Bilirubin (0.2-1.3) mg/dL AST (15-59) U/L ALT (7-56) U/L Alkaline Phosphatase (38-133) U/L Total Creatine Kinase 37263 H (35-230) U/L CK-MB (CK-2) 3.0 (0.0-3.6) ng/mL CK-MB (CK-2) % Cancelled Total Protein (5.8-8.3) g/dL Albumin (3.0-4.8) g/dL Globulin gm/dL Albumin/Globulin Ratio (1.1-1.8) Lipase 160 (23-300) U/L 25-OH Vitamin D Total < 12.8 L (30.0-100.0) NG/ML Urine Osmolality 266 (50-645) mosm/kg Ur Random Sodium 108 meq/L Laboratory Results - last 24 hr 01/01/17 01/01/17 01/01/17 05:30 13:50 14:00 WBC RBC Hgb Hct MCV MCH MCHC RDW Plt Count MPV Gran % Lymph % (Auto) [place] % (Auto) Eos % (Auto) Baso % (Auto) Gran # Lymph # [place] # Eos # Baso # Sodium Potassium Chloride Carbon Dioxide Anion Gap BUN Creatinine Est GFR ( Amer) Est GFR (Non-Af Amer) Random Glucose Calcium Phosphorus Magnesium Total Bilirubin AST ALT Alkaline Phosphatase Total Creatine Kinase 36690 H CK-MB (CK-2) 3.0 CK-MB (CK-2) % Cancelled Total Protein Albumin Globulin Albumin/Globulin Ratio Lipase 160 25-OH Vitamin D Total < 12.8 L Urine Osmolality 266 Ur Random Sodium 108 01/02/17 01/02/17 01/02/17 05:20 05:20 05:20 WBC 7.1 D RBC 3.33 L Hgb 10.1 L Hct 28.9 L MCV 86.8 MCH 30.3 MCHC 34.9 RDW 14.1 Plt Count 153 MPV 9.1 Gran % 55.4 Lymph % (Auto) 33.6 [place] % (Auto) 8.7 H Eos % (Auto) 2.0 Baso % (Auto) 0.3 Gran # 3.93 Lymph # 2.4 [place] # 0.6 Eos # 0.1 Baso # 0.02 Sodium 136 Potassium 3.6 Chloride 108 Carbon Dioxide 23 Anion Gap 9 L BUN < 2 L Creatinine 0.5 Est GFR ( Amer) > 60 Est GFR (Non-Af Amer) > 60 Random Glucose 84 Calcium 6.9 L* Phosphorus 2.4 L Magnesium 1.8 Total Bilirubin 0.3 AST 521 H ALT 133 H Alkaline Phosphatase 56 Total Creatine Kinase 22305 H CK-MB (CK-2) 1.8 CK-MB (CK-2) % Cancelled Total Protein 5.7 L Albumin 3.2 Globulin 2.6 Albumin/Globulin Ratio 1.3 Lipase 25-OH Vitamin D Total Urine Osmolality Ur Random Sodium Review of Systems - Review of Systems All systems: reviewed and no additional remarkable complaints except (as per HPI ) - Gastrointestinal Gastrointestinal: UNREMARKABLE - Neurological Neurological: UNREMARKABLE. absent: Tremor - Psychiatric Psychiatric: UNREMARKABLE - Endocrine Endocrine: absent: Palpitations, Polydipsia Critical Care Progress Note - Nutrition Nutrition: Nutrition Category Date Time Status Regular Diet [DIET] Diets 01/01/17 Dinner Ordered Assessment/Plan - Assessment and Plan (Free Text) Assessment: 31M w/PMH sig for ETOH abuse, hx seizures with ETOH use admitted to ICU s/p seizure activity, 1 episode of hematemesis, electrolyte imbalances including hypokalemia, severe hyponatremia, and severe hypophosphatemia. Pt experienced agitation/ETOH withdrawal currently on precedex, with Rhabdo possibly 2/2 the seizure on presentation vs. agitation with the withdrawals. Will continue in ICU for now. Plan: Neuro s/p seizure, ETOH withdrawal--no agitation overnight on the precedex drip AAOx4 today, normal insight, normal concentration, no tremors Cont Keppra 500mg Q12H per neuro LFT's improving: Librium 5mg PO Q8 Ativan IVP Q6 PRN agitation Thiamine, Folic acid, MV D/c Precedex drip CIWA protocol Seizure precautions, Aspiration precautions, Fall precautions PT eval/treat Neuro signed off Psych consulted for ETOH abuse/withdrawal CVS Normotensive, normocardic Currently receiving NS@250 2/2 rhabdo Monitor Pulm No respiratory distress, Sa02 100% on RA Target SaO2 to keep >94%, Supplement O2 as needed Monitor GI Patient advanced to regular diet, tolerating well, no sign of active GI bleed AST 521 from 687 - down trending ALT 133 from 148 - down trending Avoid hepatotoxic drugs Cont Protonix 40 IV Q12H GI following Nephro Rhabdomyolisis: CK 61,830 down from 100,449 yesterday AM BUN/cr: <2/0.5 Hyponatremia resolved, hypokalemia improved but still borderline, hypomagnesium improving, hypophosphatemia improving, hypocalcemia persisting, low vit D Repleted K phosphate, MgSO4, Ca Gluconate 1,000mg, I/O's: 08278/76416 (-1,202) Target euvolemia Decrease fluids from NS@500cc/h to NS@250cc/h Monitor closely, Serial BMPs Nephro following UOP adequate Able to urinate on own, D/C cespedes Endo Blood sugar 84 Target euglycemia as per NICE sugar trial ID Afebrile, No leukocytosis HIV neg, Hep panel neg, Urine cxr neg, Blood cxr neg x 3D, Procalcitonin 0.16 ID following: D/C'd antibiotics yesterday Heme s/p acute episode of hematemesis 2/2 PUD H/H stable Monitor MSK Rhabdo CK 61,830 down from 100,449 NS@500cc/h decrease to NS@250cc/h Daily CPK Fall precautions, Seizure precautions, PT eval/treat Will monitor GI/DVT ppx Contraindications to VTE ppx due to PUD, SCD's Continue Protonix 40mg IV Q12H Social: Counseled on the vital importance of ETOH abstinence and the serious consequences of continued ETOH intake. Dispo Continue monitoring mental status for withdrawal as patient is tapered off precedex drip, monitor electrolytes, fluid status Possible transfer to telemetry later today if remains stable Seen and discussed with Dr. Indy Lopez PGY1 <Indy Tovar MD H - Last Filed: 01/02/17 12:58> CCU Objective - Vital Signs / Intake & Output Intake and Output (Last 8hrs): Intake & Output 01/01/17 01/02/17 01/02/17 22:59 06:59 14:59 Intake Total 5800 6250 55 Output Total 3902 9350 Balance 1898 -3100 55 Weight 129 lb Intake: IV 4800 6100 55 Left Forearm 4000 Left Hand 800 6100 Oral 1000 150 Output: Urine 3900 9050 Urethral (Cespedes) 3900 9050 Stool 2 Urine/Stool Mix 300 Other: # Bowel Movements 2 2 - Medications Active Medications: Active Medications Generic Name Dose Route Start Last Admin Trade Name Freq PRN Reason Stop Dose Admin Calcium Carbonate 600 mg 01/02/17 10:00 01/02/17 09:28 Caltrate PO 600 mg DAILY JESUS Administration Chlordiazepoxide 5 mg 01/02/17 09:00 01/02/17 09:44 Librium PO 5 mg Q8 JESUS Administration Protocol Cholecalciferol 4,000 iu 01/02/17 10:00 01/02/17 09:28 Vitamin D PO 4,000 iu DAILY JESUS Administration Folic Acid 1 mg 12/31/16 12:30 01/02/17 09:28 Folic Acid PO 1 mg DAILY JESUS Administration Haloperidol 0.5 mg 01/02/17 10:16 Haldol PO Q6 PRN Agitation Protocol Dexmedetomidine HCl 400 mcg in 100 mls @ 10.319 mls/hr 12/31/16 02:10 08:49 Precedex 4 Mcg/Ml (100 Ml) IV 0 mcg/kg/hr .Q9H42M PRN 0 mls/hr Agitation Titration Protocol 0.7 MCG/KG/HR Potassium Phosphate 15 mmole/ 255 mls @ 42.5 mls/hr 01/02/17 08:52 01/02/17 11:03 Dextrose IVPB 01/02/17 14:51 42.5 mls/hr ONCE ONE Administration Lorazepam 1 mg 01/02/17 08:50 Ativan IVP Q6H PRN Anxiety Protocol Multivitamins/Minerals 1 tab 12/31/16 12:30 01/02/17 09:28 Therapeutic-M Tab PO 1 tab DAILY JESUS Administration Pantoprazole Sodium 40 mg 01/01/17 22:00 01/02/17 09:28 Protonix Inj IVP 40 mg Q12 JESUS Administration Thiamine HCl 100 mg 12/31/16 10:00 01/02/17 09:28 Vitamin B1 Tab PO 100 mg DAILY JESUS Administration Thiamine HCl 100 mg 12/31/16 10:00 12/31/16 11:07 Vitamin B1 Inj IV 100 mg DAILY JESUS Administration - Patient Studies Lab Studies: Lab Studies 01/02/17 01/02/17 01/02/17 Range/Units 05:20 05:20 05:20 WBC 7.1 D (4.5-11.0) 10^3/ul RBC 3.33 L (3.5-6.1) 10^6/uL Hgb 10.1 L (14.0-18.0) gm/dL Hct 28.9 L (42.0-52.0) % MCV 86.8 (80.0-105.0) fL MCH 30.3 (25.0-35.0) pg MCHC 34.9 (31.0-37.0) g/dl RDW 14.1 (11.5-14.5) % Plt Count 153 (120.0-450.0) 10^3/uL MPV 9.1 (7.0-11.0) fl Gran % 55.4 (50.0-68.0) % Lymph % (Auto) 33.6 (22.0-35.0) % [place] % (Auto) 8.7 H (1.0-6.0) % Eos % (Auto) 2.0 (1.5-5.0) % Baso % (Auto) 0.3 (0.0-3.0) % Gran # 3.93 (1.4-6.5) Lymph # 2.4 (1.2-3.4) [place] # 0.6 (0.1-0.6) Eos # 0.1 (0.0-0.7) Baso # 0.02 (0.0-2.0) K/mm3 Sodium 136 (132-148) mmol/L Potassium 3.6 (3.6-5.0) mmol/L Chloride 108 (95-110) mmol/L Carbon Dioxide 23 (21-33) mmol/L Anion Gap 9 L (10-20) BUN < 2 L (7-21) mg/dL Creatinine 0.5 (0.5-1.4) mg/dL Est GFR ( Amer) > 60 Est GFR (Non-Af Amer) > 60 Random Glucose 84 (70-110) mg/dL Calcium 6.9 L* (8.4-10.5) mg/dL Phosphorus 2.4 L (2.5-4.5) mg/dL Magnesium 1.8 (1.7-2.2) mg/dL Total Bilirubin 0.3 (0.2-1.3) mg/dL AST 521 H (15-59) U/L ALT 133 H (7-56) U/L Alkaline Phosphatase 56 (38-133) U/L Total Creatine Kinase 22886 H (35-230) U/L CK-MB (CK-2) 1.8 (0.0-3.6) ng/mL CK-MB (CK-2) % Cancelled Total Protein 5.7 L (5.8-8.3) g/dL Albumin 3.2 (3.0-4.8) g/dL Globulin 2.6 gm/dL Albumin/Globulin Ratio 1.3 (1.1-1.8) Lipase (23-300) U/L Urine Osmolality (50-645) mosm/kg Ur Random Sodium meq/L 01/01/17 01/01/17 Range/Units 14:00 13:50 WBC (4.5-11.0) 10^3/ul RBC (3.5-6.1) 10^6/uL Hgb (14.0-18.0) gm/dL Hct (42.0-52.0) % MCV (80.0-105.0) fL MCH (25.0-35.0) pg MCHC (31.0-37.0) g/dl RDW (11.5-14.5) % Plt Count (120.0-450.0) 10^3/uL MPV (7.0-11.0) fl Gran % (50.0-68.0) % Lymph % (Auto) (22.0-35.0) % [place] % (Auto) (1.0-6.0) % Eos % (Auto) (1.5-5.0) % Baso % (Auto) (0.0-3.0) % Gran # (1.4-6.5) Lymph # (1.2-3.4) [place] # (0.1-0.6) Eos # (0.0-0.7) Baso # (0.0-2.0) K/mm3 Sodium (132-148) mmol/L Potassium (3.6-5.0) mmol/L Chloride (95-110) mmol/L Carbon Dioxide (21-33) mmol/L Anion Gap (10-20) BUN (7-21) mg/dL Creatinine (0.5-1.4) mg/dL Est GFR ( Amer) Est GFR (Non-Af Amer) Random Glucose (70-110) mg/dL Calcium (8.4-10.5) mg/dL Phosphorus (2.5-4.5) mg/dL Magnesium (1.7-2.2) mg/dL Total Bilirubin (0.2-1.3) mg/dL AST (15-59) U/L ALT (7-56) U/L Alkaline Phosphatase (38-133) U/L Total Creatine Kinase 80691 H (35-230) U/L CK-MB (CK-2) 3.0 (0.0-3.6) ng/mL CK-MB (CK-2) % Cancelled Total Protein (5.8-8.3) g/dL Albumin (3.0-4.8) g/dL Globulin gm/dL Albumin/Globulin Ratio (1.1-1.8) Lipase 160 (23-300) U/L Urine Osmolality 266 (50-645) mosm/kg Ur Random Sodium 108 meq/L Laboratory Results - last 24 hr 01/01/17 01/01/17 01/02/17 13:50 14:00 05:20 WBC 7.1 D RBC 3.33 L Hgb 10.1 L Hct 28.9 L MCV 86.8 MCH 30.3 MCHC 34.9 RDW 14.1 Plt Count 153 MPV 9.1 Gran % 55.4 Lymph % (Auto) 33.6 [place] % (Auto) 8.7 H Eos % (Auto) 2.0 Baso % (Auto) 0.3 Gran # 3.93 Lymph # 2.4 [place] # 0.6 Eos # 0.1 Baso # 0.02 Sodium Potassium Chloride Carbon Dioxide Anion Gap BUN Creatinine Est GFR ( Amer) Est GFR (Non-Af Amer) Random Glucose Calcium Phosphorus Magnesium Total Bilirubin AST ALT Alkaline Phosphatase Total Creatine Kinase 30740 H CK-MB (CK-2) 3.0 CK-MB (CK-2) % Cancelled Total Protein Albumin Globulin Albumin/Globulin Ratio Lipase 160 Urine Osmolality 266 Ur Random Sodium 108 01/02/17 01/02/17 05:20 05:20 WBC RBC Hgb Hct MCV MCH MCHC RDW Plt Count MPV Gran % Lymph % (Auto) [place] % (Auto) Eos % (Auto) Baso % (Auto) Gran # Lymph # [place] # Eos # Baso # Sodium 136 Potassium 3.6 Chloride 108 Carbon Dioxide 23 Anion Gap 9 L BUN < 2 L Creatinine 0.5 Est GFR ( Amer) > 60 Est GFR (Non-Af Amer) > 60 Random Glucose 84 Calcium 6.9 L* Phosphorus 2.4 L Magnesium 1.8 Total Bilirubin 0.3 AST 521 H ALT 133 H Alkaline Phosphatase 56 Total Creatine Kinase 97172 H CK-MB (CK-2) 1.8 CK-MB (CK-2) % Cancelled Total Protein 5.7 L Albumin 3.2 Globulin 2.6 Albumin/Globulin Ratio 1.3 Lipase Urine Osmolality Ur Random Sodium Critical Care Progress Note - Nutrition Nutrition: Nutrition Category Date Time Status Regular Diet [DIET] Diets 01/01/17 Dinner Ordered Attending/Attestation - Attestation I have personally seen and examined this patient.: Yes I have fully participated in the care of the patient.: Yes I have reviewed all pertinent clinical information: Yes Notes (Text): 01/02/17 12:54 31 y/o M w/ resolving DT and Rhabdomyolysis Rhabdomyolysis Resolving on D5W @ 250 ml / hr , ck improving and creatnine and urine output intact. Diet resumed and no further GI bleed or blood loos , w hgb > 7 DT Resloving DT, precedex to be turned off and transitioned to p.O librium w/ PRN Ativan. d/c 1:1 vital signs are WNL. GI bleed Resolved, hgb intact, PPI drip changed to BID IVP. Octreotide stopped . G.I following dvt P SCD, could start back heparin sq tid PT/OT needed cc time 45 min
--- NOTE | 2017-01-02 11:24 | PN ---
DATE: 01/02/2017 The patient is in bed. Was seen in [facility], bed 3. PHYSICAL EXAMINATION: VITAL SIGNS: Temperature is 98, blood pressure is 140/90, respiratory rate of 18, heart rate of 96. HEENT: Unremarkable. NECK: Supple. LUNGS: Have decreased breath sounds. HEART: Normal S1, S2. ABDOMEN: Soft. LABORATORY DATA: Reveals a white count of 7.1, hemoglobin of 10. Chemistries are noted. The LFTs a re improving. The CK is also improving. The patient's procalcitonin is unremarkable and cultures ar e negative. Review of orders reveals the patient to be off of antibiotics. ASSESSMENT AND PLAN: This is a 31-year-old male, systemic inflammatory response syndrome, episode of seizures, currently off of antibiotics. He is at risk for developing nosocomial infections. MRI is noted. Will follow with you. Mathew Carrillo MD cc: 350 TT: 01/02/2017 11:23:28 Confirmation # [id number] Dictation # [id number] mn
--- NOTE | 2017-01-02 11:26 | CP.PCM.PN ---
<Mae Raphael - Last Filed: 01/02/17 12:47> Subjective - Date & Time of Evaluation Date of Evaluation: 01/02/17 Time of Evaluation: 11:23 - Subjective Subjective: HOSPITALISTS PROGRESS NOTE Pt is seen and examined at bedside. Communicated through a facilities engineer. Patient is A&Ox3, answering questions and following commands. Patient denies having any CP, SOB, abd pain, N/V/D/C. Per nurse, pt conveyed suicidal ideations to someone overnight. 1:[address] He is currently on liquid diet. Objective - Vital Signs/Intake and Output Vital Signs (last 24 hours): Temp Pulse Resp BP Pulse Ox 98 F 81 16 140/94 H 100 01/02/17 04:00 01/02/17 08:00 01/02/17 08:00 01/02/17 08:00 01/02/17 08:00 Intake and Output: 01/02/17 01/02/17 06:59 18:59 Intake Total 6250 Output Total 9350 Balance -3100 - Medications Medications: Current Medications Calcium Carbonate (Caltrate) 600 mg PO DAILY [facility] Last Admin: 01/02/17 09:28 Dose: 600 mg Chlordiazepoxide (Librium) 5 mg PO Q8 JESUS PRN Reason: Protocol Last Admin: 01/02/17 09:44 Dose: 5 mg Cholecalciferol (Vitamin D) 4,000 iu PO DAILY [facility] Last Admin: 01/02/17 09:28 Dose: 4,000 iu Folic Acid (Folic Acid) 1 mg PO DAILY [facility] Last Admin: 01/02/17 09:28 Dose: 1 mg Haloperidol (Haldol) 0.5 mg PO Q6 PRN; Protocol PRN Reason: Agitation Dexmedetomidine HCl (Precedex 4 Mcg/Ml (100 Ml)) 400 mcg in 100 mls @ 10.319 mls/hr IV .Q9H42M PRN; Protocol; 0.7 MCG/KG/HR PRN Reason: Agitation Last Admin: 01/01/17 11:37 Dose: 0.2 mcg/kg/hr, 2.948 mls/hr Potassium Phosphate 15 mmole/ (Dextrose) 255 mls @ 42.5 mls/hr IVPB ONCE ONE Stop: 01/02/17 14:51 Lorazepam (Ativan) 1 mg IVP Q6H PRN; Protocol PRN Reason: Anxiety Multivitamins/Minerals (Therapeutic-M Tab) 1 tab PO DAILY JESUS Last Admin: 01/02/17 09:28 Dose: 1 tab Pantoprazole Sodium (Protonix Inj) 40 mg IVP Q12 JESUS Last Admin: 01/02/17 09:28 Dose: 40 mg Thiamine HCl (Vitamin B1 Tab) 100 mg PO DAILY JESUS Last Admin: 01/02/17 09:28 Dose: 100 mg Thiamine HCl (Vitamin B1 Inj) 100 mg IV DAILY JESUS Last Admin: 12/31/16 11:07 Dose: 100 mg - Labs Labs: 01/02/17 05:20 01/02/17 05:20 PT 12.6 Seconds (9.9-11.8) H 12/29/16 07:14 INR 1.17 (0.93-1.08) H 12/29/16 07:14 APTT 28.7 Seconds (23.7-30.8) 12/29/16 07:14 - Constitutional Appears: Non-toxic, No Acute Distress - Head Exam Head Exam: ATRAUMATIC - Eye Exam Eye Exam: EOMI - ENT Exam ENT Exam: Mucous Membranes Moist - Respiratory Exam Respiratory Exam: Clear to Ausculation Bilateral, NORMAL BREATHING PATTERN. absent: Rales, Rhonchi, Wheezes - Cardiovascular Exam Cardiovascular Exam: REGULAR RHYTHM, +S1, +S2. absent: Gallop, Rubs, Murmur - GI/Abdominal Exam GI & Abdominal Exam: Soft, Normal Bowel Sounds. absent: Distended, Firm, Guarding, Rigid, Tenderness, Organomegaly - Extremities Exam Extremities Exam: absent: Pedal Edema, Tenderness - Neurological Exam Neurological Exam: Alert, Awake, Oriented x3 - Psychiatric Exam Psychiatric exam: Normal Affect, Normal Mood - Skin Skin Exam: Dry, Intact, Normal Color, Warm Assessment and Plan - Assessment and Plan (Free Text) Assessment: 31 y/o M with past medical history of ETOH abuse and seizures presents to ED s/ p seizure likely 2/2 to alcohol abuse. Plan: Alcohol Abuse/Withdrawal Precedex drip decreased Multi-Vit Thiamine Folic Acid Ativan 1mg PRN q6 Abdominal US - please see full report -fatty liver vs parenchymal disease Psych Consult - Dr. Mattson - help appreciated -pt. still having withdrawal symptoms in light of being on precedex and Ativan -pt. is agreeable to going to inpatient psych after being medically clear Septic Shock - resolved CBC- leukocytosis -resolved Blood culture - No Growth in 3 days Urine culture No Growth MRSA screen - not detected Aztreonam in the ED HIV negative Hep Panel negative ID Consult - Dr. Clarke, appreciate recs -Vancomycin and Rocephin stopped -Will follow Seizures Keppra 500mg q12 Neuro Consult - Dr. Ashok Ruffin, appreciate recs -Head CT - please see full report -No Acute findings, with evidence of chronic ischemic changes -MRI of brain showed no acute changes. -Showed 12 mm lesion at left basal ganglia possible old infarct vs encephalomalacia with blood product. -EEG - please see full report -no signs of seizure activity -Cont Keppra -Cont to jacob electrolytes and correct -Will sign off GI Bleed Protonix drip octreotide drip GI Consult Dr. Rm, appreciate recs -No plan for EGD currently -advance diet as tolerated advanced diet to regular on 01/01 Electrolyte Imbalance Nephrology, Dr. Chirinos is consulted -Hypophosphatemia -Potassium phos IV -Hyponatremia- resolved -cont fluids, given desmopressin 2mcg to avoid rapid rise -goal of low 130's -Hypokalemia - Potassium phosphate -Hypocalcemia - replete as needed Rhadomyolysis will treat will aggressive fluids IV Case discussed with attending, Dr. Louis <Nasra Louis - Last Filed: 01/02/17 14:32> Objective - Vital Signs/Intake and Output Vital Signs (last 24 hours): Temp Pulse Resp BP Pulse Ox 98 F 81 16 140/94 H 100 01/02/17 04:00 01/02/17 08:00 01/02/17 08:00 01/02/17 08:00 01/02/17 08:00 Intake and Output: 01/02/17 01/02/17 06:59 18:59 Intake Total 6250 55 Output Total 9350 Balance -3100 55 - Medications Medications: Current Medications Chlordiazepoxide (Librium) 5 mg PO Q8 [facility] PRN Reason: Protocol Last Admin: 01/02/17 09:44 Dose: 5 mg Cholecalciferol (Vitamin D) 4,000 iu PO DAILY [facility] Last Admin: 01/02/17 09:28 Dose: 4,000 iu Folic Acid (Folic Acid) 1 mg PO DAILY [facility] Last Admin: 01/02/17 09:28 Dose: 1 mg Haloperidol (Haldol) 0.5 mg PO Q6 PRN; Protocol PRN Reason: Agitation Heparin Sodium (Porcine) (Heparin) 5,000 units SC Q12 JESUS PRN Reason: Protocol Dexmedetomidine HCl (Precedex 4 Mcg/Ml (100 Ml)) 400 mcg in 100 mls @ 10.319 mls/hr IV .Q9H42M PRN; Protocol; 0.7 MCG/KG/HR PRN Reason: Agitation Last Titration: 01/02/17 08:49 Dose: 0 mcg/kg/hr, 0 mls/hr Potassium Phosphate 15 mmole/ (Dextrose) 255 mls @ 42.5 mls/hr IVPB ONCE ONE Stop: 01/02/17 14:51 Last Admin: 01/02/17 11:03 Dose: 42.5 mls/hr Lorazepam (Ativan) 1 mg IVP Q6H PRN; Protocol PRN Reason: Anxiety Multivitamins/Minerals (Therapeutic-M Tab) 1 tab PO DAILY [facility] Last Admin: 01/02/17 09:28 Dose: 1 tab Pantoprazole Sodium (Protonix Inj) 40 mg IVP Q12 JESUS Last Admin: 01/02/17 09:28 Dose: 40 mg Thiamine HCl (Vitamin B1 Tab) 100 mg PO DAILY [facility] Last Admin: 01/02/17 09:28 Dose: 100 mg Thiamine HCl (Vitamin B1 Inj) 100 mg IV DAILY [facility] Last Admin: 12/31/16 11:07 Dose: 100 mg - Labs Labs: 01/02/17 05:20 01/02/17 05:20 PT 12.6 Seconds (9.9-11.8) H 12/29/16 07:14 INR 1.17 (0.93-1.08) H 12/29/16 07:14 APTT 28.7 Seconds (23.7-30.8) 12/29/16 07:14 Attending/Attestation - Attestation I have personally seen and examined this patient.: Yes I have fully participated in the care of the patient.: Yes I have reviewed all pertinent clinical information, including history, physical exam and plan: Yes Notes (Text): 01/02/17 14:21 Attending note; Patient seen and examined with the resident. Patients on by the bedside. Translation by Icelandic-speaking ICU resident. Patient is a 31 year old Icelandic speaking male with history of multiple seizures , alcohol abuse, who was brought in ED for evaluation of seizure, headache, dizziness and hematemesis. Patient was on Precedex drip for alcohol withdrawal symptoms. We will DC Precedex drip and monitor. Started on IV Ativan. He was found to have elevated CK/ rhabdomyolysis due to seizure. Continue IV fluids. CPK is improving. Leukocytosis was most likely reactive. Elevated lactic acid post seizure due to alcohol withdrawal . Procal normal. CXR normal. Antibiotics stopped. CT head showed chronic ischemic changes. 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 EEG showed diffuse bilateral cerebral dysfunction and no seizure activity. Continue keppra. No further episodes of hematemesis. GI evaluation appreciated . There is no plan for EGD. Currently on regular diet. Continue Protonix. LFTs are elevated secondary to alcohol abuse and rhabdomyolysis. Monitor closely. Hep panel and HIV negative. Abdominal ultrasound showed fatty liver vs parenchymal disease. Complete alcohol cessation is strongly advised. 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 Patient will follow-up with [facility] clinic upon discharge.
--- NOTE | 2017-01-02 15:46 | PN ---
DATE: 01/02/2017 A 31-year-old male with past medical history of alcohol abuse, presented after witnessed seizure. Ad mitted for severe hyponatremia. Nephrology following for the same. Per nursing staff, patient not agitated overnight. The patient reports feeling well, is tolerating d iet, denies any pain. PHYSICAL EXAMINATION: VITAL SIGNS: This morning, blood pressure 140/94, heart rate 91, respirations 17, O2 sat 99% on room air. GENERAL: No distress, lying comfortably in bed, able to converse coherently, in full sentences, aler t and oriented x 3. HEENT: Moist mucous membranes. Nonicteric. RESPIRATORY: Lungs clear to auscultation bilaterally. No rales, no rhonchi, no wheezes. HEART: S1, S2 normal, no murmurs, no gallops, no rubs. GASTROINTESTINAL: Abdomen soft, nontender, nondistended. GENITOURINARY: No bladder distention. EXTREMITIES: No leg edema. SKIN: Warm. No cyanosis. PSYCHIATRIC: Normal mood, normal affect. LABORATORIES: This morning, CBC: WBC 7.1, hemoglobin 10.1, hematocrit 28.9, platelets 153. Cytotechnologist/Histotechnologist ry panel: Sodium 136, potassium 3.6, chloride 108, bicarb 23, BUN less than 2, creatinine 0.5, gluco se 84, calcium 6.9, phosphorus 2.4, magnesium 1.8. CK level 61,830. Albumin 3.2. ASSESSMENT: 1. Hyponatremia, severe, now resolved in the setting of relative volume depletion due to excessive v omiting while consuming only alcoholic beverages as p.o. intake. The patient has been getting aggres sive IV intravascular volume repletion. Serum sodium has overall risen at an acceptable rate. 2. Rhabdomyolysis, severe, apparently secondary to severe agitation and belligerent behavior due to alcohol withdrawal. No particular 1 muscle group involved. No decrease in peripheral pulses ascerta ined. Overall resolving. Agree with keeping patient on normal saline at 250 mL per hour to avoid re nal tubular injury. 3. Hypotension, resolved. The patient with evidence of marked volume depletion with low urine sodiu m seen 2 days ago and hypotensive yesterday. Continue to monitor. 4. Hypocalcemia, secondary to rhabdomyolysis due to sequestering of calcium within affected muscle t issue. The patient is no longer hypotensive. Therefore, no need to aggressively supplement calcium as sequestered calcium should be released as muscle tissue recovers. Also important to keep in mind not to give IV calcium along with IV phosphate as they may complex together and deposit in vasculatur e and soft tissues. As patient is tolerating p.o. intake, recommend to supplement p.o. Neutra-Phos. 5. Anemia. Will check iron stores. Jhoan Chirinos MD cc: [id number] TT: 01/02/2017 15:46:05 Confirmation # [id number] Dictation # [id number] en
[2017-01-03] MEDS: Sodium Chloride 0.9% 1,000 ML IV SCH ×3 (03:00→22:07)
[2017-01-03 06:19] LABS: ADD MANUAL DIFF? NO
[2017-01-03 06:22] LABS: BASO # 0.02 K/mm3 (0.0-2.0); BASO % 0.3 % (0.0-3.0); EOS # 0.1 (0.0-0.7); EOS % 1.9 % (1.5-5.0); GRAN # 3.16 (1.4-6.5); GRAN % 46.4 % (50.0-68.0); HEMATOCRIT 33.4 % (42.0-52.0); LYMPH # 2.6 (1.2-3.4); LYMPH % 38.8 % (22.0-35.0); MEAN CORPUSCULAR HEMOGLOBIN 30.2 pg (25.0-35.0); MEAN CORPUSCULAR HGB CONC 34.7 g/dl (31.0-37.0); MONO # 0.9 (0.1-0.6); MONO % 12.6 % (1.0-6.0); PLATELET COUNT 217 10^3/uL (120.0-450.0); RED CELL DISTRIBUTION WIDTH 14.2 % (11.5-14.5); WHITE BLOOD COUNT 6.8 10^3/ul (4.5-11.0)
[2017-01-03 06:39] LABS: ALB/GLOB RATIO 1.5 (1.1-1.8); ALKALINE PHOSPHATASE 64 U/L (38-133); ALT/SGPT 142 U/L (7-56); AST/SGOT 417 U/L (15-59); BILIRUBIN,TOTAL 0.5 mg/dL (0.2-1.3); BLOOD UREA NITROGEN < 2 mg/dL (7-21); CALCIUM 7.9 mg/dL (8.4-10.5); CARBON DIOXIDE 25 mmol/L (21-33); CHLORIDE 104 mmol/L (95-110); GFR AFRICAN-AMERICAN > 60; GLUCOSE,RANDOM 83 mg/dL (70-110); MAGNESIUM 2.1 mg/dL (1.7-2.2); POTASSIUM 3.2 mmol/L (3.6-5.0); SODIUM 137 mmol/L (132-148); TOTAL PROTEIN 6.7 g/dL (5.8-8.3)
[2017-01-03 06:40] LABS: IRON 58 ug/dL (45-180)
[2017-01-03 07:08] LABS: PHOSPHOROUS 3.3 mg/dL (2.5-4.5)
[2017-01-03] MEDS ORDERED: Potassium Chloride 20 mEq ER Tab PO STA (07:11)
--- NOTE | 2017-01-03 08:27 | PN ---
DATE: 01/01/2017 The patient is in bed in no acute distress, nontoxic. PHYSICAL EXAMINATION: VITAL SIGNS: His temperature is 98. Blood pressure is 130/100, respiratory rate of 18, heart rate o f 72. HEENT: Unremarkable. NECK: Supple. LUNGS: Have decreased breath sounds. HEART: Normal S1, S2. ABDOMEN: Soft, nontender. LABORATORY EXAMINATION: Reveals a white count of 9.8, hemoglobin of 10, platelets of 141. BUN of le ss than 2. Review of the orders reveals the patient to be on no antibiotics. Dr. Chirinos's note is reviewed. ASSESSMENT AND PLAN: This is a 31-year-old male who seen earlier today in ICU bed #3 with systemic i nflammatory response syndrome, episode of seizures, currently off of antibiotics. MRI is noted to be unremarkable. No acute evidence of infection with normal procalcitonin. Culture is negative. The patient is at risk for developing nosocomial infections, most likely also related to alcohol withdraw al symptoms. We will follow with you. Mathew Carrillo MD cc: [id number] TT: 01/01/2017 09:31:32 Confirmation # [id number] Dictation # [id number] jn
--- NOTE | 2017-01-03 08:31 | PN ---
DATE: 01/01/2017 A 31-year-old male with past medical history of alcohol abuse, admitted severe hyponatremia after pre senting status post witnessed seizure. Nephrology following for hyponatremia and rhabdomyolysis. The patient reportedly again agitated last night, belligerent, needing to be restrained. This aftern oon, denies any complaints, denies any shortness of breath, denies any pain, tolerating diet. PHYSICAL EXAMINATION: VITAL SIGNS: Early this afternoon, blood pressure 106/67, heart rate 74, respirations 15, O2 sat 100 % on room air. GENERAL: No distress, alert and oriented x 3. HEENT: Moist mucous membranes. Nonicteric. CHEST: Clear to auscultation bilaterally. No rales, no rhonchi, no wheezes. HEART: S1, S2 normal, no murmurs, no gallops, no rubs. ABDOMEN: Soft, nontender, minimally distended. EXTREMITIES: No leg edema. SKIN: Warm, no cyanosis. Distal pulses good, palpable bilateral radial and dorsalis pedis pulses. PSYCHIATRIC: Normal mood, normal affect. LABORATORIES: CBC: WBC 9.8, hemoglobin 10.5, hematocrit 29.4, platelets 141. Chemistry panel: Sod ium 131, potassium 3.2, chloride 101, bicarb 23, BUN less than 2, creatinine 0.5, glucose 101, calciu m 6.9, phosphorus 2.5, magnesium 1.5, AST 687, ALT 148. CK 100,449. Albumin 3.2. ASSESSMENT: 1. Hypotonic hyponatremia, severe, in the setting of volume depletion secondary to vomiting and whil e only consuming alcoholic beverages. Hyponatremia improving progressively with rate and rise of ser um sodium overall at goal. Needed to bring down serum sodium yesterday evening, after it was found t o have risen a little more than what was our goal. At this point, patient is at a safe range and no longer need to frequently monitor serum sodium. As patient has been having marked hypotension, agree with continuing aggressive isotonic saline. Will repeat urine sodium and urine osmolality. 2. Rhabdomyolysis, severe, in the setting of alcohol withdrawal and agitation. No distinct area of muscle damage able to be discerned. Good distal pulses in bilateral upper and lower extremities. Ne ed to continue aggressive volume repletion with a goal of keeping net positive sodium balance. Justin nue with normal saline at 500 mL per hour until hypotension resolves. 3. Hypocalcemia is frequently seen in the setting of rhabdomyolysis due to sequestering of calcium i n affected muscle tissue. Generally, should not aggressively replenish. However, patient has been h ypotensive. Therefore, agree with IV calcium gluconate replenishment. 4. Hypotension, etiology is unclear. The patient has received aggressive volume replenishment. Nee d to think about third spacing in the setting of rhabdomyolysis. No clinical sign of pancreatitis, b ut will check a lipase level anyway. Will repeat urine sodium to look for possible salt wasting (avery harding this was not seen yesterday, therefore doubt there is actually salt wasting). 5. Alcohol withdrawal. The patient on Precedex currently. Continue. Jhoan Chirinos MD cc: [id number] TT: 01/01/2017 15:02:23 Confirmation # [id number] Dictation # [id number] en
--- NOTE | 2017-01-03 08:38 | CON ---
DATE: 01/02/2017 The patient is a single 31-year-old [place]-born single male with a psychiatric history of severe alco hol use disorder, no prior psychiatric hospitalizations or suicide attempts, no medication trials, wh o was admitted on 12/29/2016 after he presented with family. I think he was brought in by EMS with [facility] due to having a witnessed seizure at home, likely related to his alcohol use. The patient was admitted to the ICU with a diagnosis of septic shock, and the patient became deliriou s the next day. Notes also indicate that during this period of confusion, the patient tried to jump out of the window and was trying to hit the window, and a code [employer]oper was called. Psychiatry was consu lted because of the patient's agitated confused behavior, as well as the possibility that the patient wanted to harm himself due to his actions while he was delirious. I met with the patient at bedside and was able to interview him with the help of resident Julio Cesar Wolf who translated Mongolian for me. The patient indicates that he has not been depressed. However, he h as a history of ruminating anxiety that can prevent him from functioning well. He indicates that anx iety also affects his sleep, and he also has a history of alcohol dependency first noted by him to be ____ approximately 3 years ago. The patient indicates that he drinks tequila and about two 6-packs of beer daily, and had been drinking during the day of his seizure. Prior records also indicate the patient has had as many as 6 prior seizures or 2 prior seizures, likely related to his alcohol use. He also reports history of hallucinations prior to his episode yesterday and the day prior in the ICU that are related to either alcohol intoxication or alcohol withdrawal. He has had a period of sobri ety for approximately 7 months with the help of AA. The patient is generally coherent, and his responses are relevant to questioning. He is no longer mcfarlane llucinating, and he denies ever being suicidal or having any wishes. The patient indicates he had no idea of what he was doing. He was completely disoriented when he tried to jump out of the [place]. His aunt is at his bedside and generally confirms this belief. The patient would like help with his psychiatric symptoms and with his alcohol use, and he is accepti ng of this provider's recommendation that he be transferred to psychiatric unit for further stabiliza tion once he is medically cleared. PSYCHIATRIC HISTORY: The patient denies any psychiatric admissions, suicide attempts, or psychiatric medication trials. SOCIAL HISTORY: The patient was born and raised in [place]. He is single. He has no children. He l bree with his brother. 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 He reports 3-year history in which his alcohol use w as out of control, and reports the longest period of sobriety was 7 months with the help AA. The pat ient reports a history consistent with DTs in the past, as well as withdrawal seizures. Denies any h istory of drug use or arrests. VITAL SIGNS: As of this morning, they were 81, 140/94, and 16 with oxygen saturation of 100. LABORATORY DATA: Labs were also reviewed. Hematology shows a normal white blood cell count. Howeve r, H and H are 10.1 and 28.9. Calcium also continues to be low. The patient shows notable transamin itis of 521 and 133 of AST and ALT respectively, which is improving from his value of 687 and 148 yes terday. Protein kinase was 61,830 which is improving from his highest value of 100,449 yesterday. RELEVANT PSYCHIATRIC MEDICATIONS: Include Librium 5 mg p.o. q. 8 scheduled, Ativan 1 mg IV push q. 6 p.r.n. IMPRESSION: Anxiety disorder, not otherwise specified, rule out general anxiety disorder, rule out m ood disorder, severe alcohol use disorder, currently with withdrawal delirium as well. However, the patient also has many contributing factors to delirium besides alcohol withdrawal. Rule out substanc e-induced mood disorder and substance-induced anxiety disorder, as well as substance-induced psychoti c disorder. RECOMMENDATIONS: 1. Psychiatrically, the patient is agreeable to be transferred to the psychiatric unit once he is me dically stabilized. The patient had bouts of confusion yesterday per the patient and per aunt, and d elirium must show improvement for at least 24 hours before transfer can be entertained in this respec t. I agree with starting Ativan 1 mg IV q. 6 p.r.n. today, however, would stay away from Librium 5 m g q. 8 scheduled due to the patient's transaminitis. Medicine should continue to follow the patient' s vitals and taper or titrate his benzos to address his alcohol withdrawal symptoms accordingly. 2. We will hold off on any psychiatric medications. The patient's main complaint is an overwhelming anxiety. However, he does have a notable history of agitation and hallucinations, as well as confus ion while he was in the ICU, and this provider will start Haldol 0.5 mg q. 6 p.r.n. in case this recu rs. His anxiety is concurrently addressed with the addition of Ativan as noted above, which is being used to treat his alcohol withdrawal symptoms. Lastly, psychiatry will continue to follow up the russell villeda, monitor his mood, anxiety, comfort levels, and tolerance to medications, as well as his behavi or on the unit. Migue Mattson MD cc: [id number] TT: 01/02/2017 11:16:53 Confirmation # [id number] Dictation # [id number] karissa
[2017-01-03] MEDS: Multivitamin With Minerals Tab PO SCH (09:20)
--- NOTE | 2017-01-03 11:38 | CP.PCM.PN ---
Subjective - Date & Time of Evaluation Date of Evaluation: 01/03/17 Time of Evaluation: 09:30 - Subjective Subjective: Comfortable, afebrile, not in distress. Objective - Vital Signs/Intake and Output Vital Signs (last 24 hours): Temp Pulse Resp BP Pulse Ox 99.6 F 84 14 127/84 98 01/03/17 08:00 01/03/17 08:53 01/03/17 08:53 01/03/17 06:00 01/03/17 06:00 Intake and Output: 01/03/17 01/03/17 06:59 18:59 Intake Total 3500 Output Total 3550 Balance -50 - Medications Medications: Current Medications Chlordiazepoxide (Librium) 5 mg PO Q8 [facility] PRN Reason: Protocol Last Admin: 01/03/17 05:41 Dose: 5 mg Cholecalciferol (Vitamin D) 4,000 iu PO DAILY [facility] Last Admin: 01/03/17 09:17 Dose: 4,000 iu Folic Acid (Folic Acid) 1 mg PO DAILY [facility] Last Admin: 01/03/17 09:17 Dose: 1 mg Haloperidol (Haldol) 0.5 mg PO Q6 PRN; Protocol PRN Reason: Agitation Heparin Sodium (Porcine) (Heparin) 5,000 units SC Q12 [facility]US PRN Reason: Protocol Last Admin: 01/03/17 09:19 Dose: 5,000 units Dexmedetomidine HCl (Precedex 4 Mcg/Ml (100 Ml)) 400 mcg in 100 mls @ 10.319 mls/hr IV .Q9H42M PRN; Protocol; 0.7 MCG/KG/HR PRN Reason: Agitation Last Titration: 01/02/17 08:49 Dose: 0 mcg/kg/hr, 0 mls/hr Sodium Chloride (Sodium Chloride 0.9%) 1,000 mls @ 250 mls/hr IV .Q4H [facility] Stop: 01/04/17 11:14 Last Admin: 01/03/17 06:46 Dose: 250 mls/hr Lorazepam (Ativan) 1 mg IVP Q6H PRN; Protocol PRN Reason: Anxiety Multivitamins/Minerals (Therapeutic-M Tab) 1 tab PO DAILY [facility] Last Admin: 01/03/17 09:20 Dose: 1 tab Ondansetron HCl (Zofran Inj) 4 mg IVP Q4H PRN PRN Reason: Nausea/Vomiting Last Admin: 01/02/17 15:11 Dose: 4 mg Pantoprazole Sodium (Protonix Inj) 40 mg IVP Q12 [facility] Last Admin: 01/03/17 09:19 Dose: 40 mg Thiamine HCl (Vitamin B1 Tab) 100 mg PO DAILY [facility] Last Admin: 01/03/17 09:17 Dose: 100 mg Thiamine HCl (Vitamin B1 Inj) 100 mg IV DAILY [facility] Last Admin: 12/31/16 11:07 Dose: 100 mg - Labs Labs: 01/03/17 05:20 01/03/17 05:20 PT 12.6 Seconds (9.9-11.8) H 12/29/16 07:14 INR 1.17 (0.93-1.08) H 12/29/16 07:14 APTT 23.5 Seconds (23.7-30.8) L 01/02/17 20:20 - Constitutional Appears: Non-toxic, No Acute Distress - Head Exam Head Exam: NORMAL INSPECTION - ENT Exam ENT Exam: Mucous Membranes Moist - Neck Exam Neck Exam: absent: Lymphadenopathy, Meningismus - Respiratory Exam Respiratory Exam: Decreased Breath Sounds - Cardiovascular Exam Cardiovascular Exam: +S1, +S2 - GI/Abdominal Exam GI & Abdominal Exam: Soft. absent: Tenderness Assessment and Plan - Assessment and Plan (Free Text) Plan: Assessment S/P Systemic Inflammatory Response Syndrome, probably reactive due to acute stressful event from seizure episode in a patient with hyponatremia and hypochloremia probably from dehydration; no evidence of sepsis identified alcohol abuse Plan blood and urine cx negative, PCT normal; reviewed CXR which is normal Will continue to monitor clinically off antibiotics since he is at risk for infection
--- NOTE | 2017-01-03 11:45 | PN ---
DATE: 01/03/2017 SUBJECTIVE: The patient is lying in bed comfortably. He has not had any nausea, vomiting, melena, h ematemesis or rectal bleeding. His hemoglobin has remained stable in the 11.5 gram range. PHYSICAL EXAMINATION: VITAL SIGNS: Reveal temperature of 99.6, blood pressure 127/84, heart rate of 84. ABDOMEN: Soft, nontender. LABORATORY DATA: Hemoglobin is 11.6, stable. His CPK has been noted to be elevated at 33,000; this is trending downward. IMPRESSION: A 31-year-old male alcoholic admitted to the hospital with seizures with an episode of h ematemesis, without any further recurrence of hematemesis, stable hemoglobin, and rhabdomyolysis with CK trending downwards. He appears lucid and does not appear to be in delirium tremens. RECOMMENDATIONS: Would continue PPI once a day for the next 4 weeks. The patient is to follow up wi th his private medical doctor as an outpatient. Mauricio Rm MD cc: [id number] TT: 01/03/2017 11:43:52 Confirmation # [id number] Dictation # [id number] [email or web address]
--- NOTE | 2017-01-03 11:59 | PN ---
DATE: 01/03/2017 A 31-year-old male with past medical history of alcohol abuse, admitted with severe hyponatremia afte r presenting status post witnessed seizure. Nephrology following for hyponatremia and rhabdomyolysis . The patient reports feeling well. Denies any shortness of breath, tolerating diet. PHYSICAL EXAMINATION: VITAL SIGNS: This morning, blood pressure 122/61, heart rate 68, respirations 17, O2 sat 100% on mar m air. GENERAL: No distress, lying comfortably in bed, conversing in full sentences coherently. HEENT: Moist mucous membranes. Nonicteric. CHEST: Clear to auscultation bilaterally. No rales, no rhonchi, no wheezes. HEART: S1, S2 normal, no murmurs, no gallops, no rubs. ABDOMEN: Soft and nontender. EXTREMITIES: No leg edema. SKIN: Warm, no cyanosis. PSYCHIATRIC: Normal mood, normal affect. LABORATORY DATA: CBC: WBC 6.8, hemoglobin 11.6, hematocrit 33.4, platelets 217. Chemistry panel: Sodium 137, potassium 3.2, chloride 104, bicarbonate 25, BUN less than 2, creatinine 0.6, glucose 83, calcium 7.9, phosphorus 3.3. Iron saturation 20%, iron 58, TIBC 291, alkaline phosphatase 64. CK 3 3,777. ASSESSMENT: 1. Hyponatremia, resolved, in the setting of hypovolemia due to vomiting and while consuming only al coholic beverages as p.o. intake. The patient counseled on the need for alcohol abstinence. 2. Rhabdomyolysis, severe, secondary to alcohol withdrawal, agitation and belligerent behavior neces sitating restraints to be placed. CK level crossing 100,000 at its peak, coming down nicely consiste ntly. No renal injury. Has been on aggressive IV fluids to prevent heme pigment tubular injury. Co ntinue normal saline at 250 mL per hour until CK level decreases to less than 10,000. 3. Hypokalemia, mild, supplement via p.o. 4. Hypocalcemia, secondary to sequestration of affected muscles from rhabdomyolysis, relatively mild at this point. No need for further supplementation as the sequestered calcium will be released afte r muscle injury begins to resolve. 5. Anemia secondary to mild iron deficiency as well as likely due to alcohol abuse. Again, patient counseled on the harms of alcohol abuse. Jhoan Chirinos MD cc: [id number] TT: 01/03/2017 11:58:37 Confirmation # [id number] Dictation # [id number]
--- NOTE | 2017-01-03 14:40 | CP.PCM.PN ---
<Serafin Tineo - Last Filed: 01/03/17 14:27> Subjective - Date & Time of Evaluation Date of Evaluation: 01/03/17 Time of Evaluation: 07:00 - Subjective Subjective: HOSPITALISTS PROGRESS NOTE Pt is seen and examined at bedside. Communicated through family member. Patient is A&Ox3, answering questions and following commands. Patient denies having any CP, SOB, abd pain, N/V/D/C. Pt. was seen by Psych who noted that pt. did not have SI and are signing off. Pt. is tolerating normal diet and will be transferred to med/surg. Objective - Vital Signs/Intake and Output Vital Signs (last 24 hours): Temp Pulse Resp BP Pulse Ox 99.6 F 66 16 107/63 100 01/03/17 08:00 01/03/17 13:31 01/03/17 13:31 01/03/17 13:00 01/03/17 13:00 Intake and Output: 01/03/17 01/03/17 06:59 18:59 Intake Total 3500 Output Total 3550 Balance -50 - Medications Medications: Current Medications Chlordiazepoxide (Librium) 5 mg PO Q8 [facility] PRN Reason: Protocol Last Admin: 01/03/17 13:16 Dose: 5 mg Cholecalciferol (Vitamin D) 4,000 iu PO DAILY [facility] Last Admin: 01/03/17 09:17 Dose: 4,000 iu Folic Acid (Folic Acid) 1 mg PO DAILY [facility] Last Admin: 01/03/17 09:17 Dose: 1 mg Haloperidol (Haldol) 0.5 mg PO Q6 PRN; Protocol PRN Reason: Agitation Heparin Sodium (Porcine) (Heparin) 5,000 units SC Q12 [facility] PRN Reason: Protocol Last Admin: 01/03/17 09:19 Dose: 5,000 units Dexmedetomidine HCl (Precedex 4 Mcg/Ml (100 Ml)) 400 mcg in 100 mls @ 10.319 mls/hr IV .Q9H42M PRN; Protocol; 0.7 MCG/KG/HR PRN Reason: Agitation Last Titration: 01/02/17 08:49 Dose: 0 mcg/kg/hr, 0 mls/hr Sodium Chloride (Sodium Chloride 0.9%) 1,000 mls @ 250 mls/hr IV .Q4H [facility] Stop: 01/04/17 11:14 Last Admin: 01/03/17 06:46 Dose: 250 mls/hr Lorazepam (Ativan) 1 mg IVP Q6H PRN; Protocol PRN Reason: Anxiety Multivitamins/Minerals (Therapeutic-M Tab) 1 tab PO DAILY [facility] Last Admin: 01/03/17 09:20 Dose: 1 tab Ondansetron HCl (Zofran Inj) 4 mg IVP Q4H PRN PRN Reason: Nausea/Vomiting Last Admin: 01/02/17 15:11 Dose: 4 mg Pantoprazole Sodium (Protonix Inj) 40 mg IVP Q12 [facility] Last Admin: 01/03/17 09:19 Dose: 40 mg Thiamine HCl (Vitamin B1 Tab) 100 mg PO DAILY [facility] Last Admin: 01/03/17 09:17 Dose: 100 mg Thiamine HCl (Vitamin B1 Inj) 100 mg IV DAILY [facility] Last Admin: 12/31/16 11:07 Dose: 100 mg - Labs Labs: 01/03/17 05:20 01/03/17 05:20 PT 12.6 Seconds (9.9-11.8) H 12/29/16 07:14 INR 1.17 (0.93-1.08) H 12/29/16 07:14 APTT 23.5 Seconds (23.7-30.8) L 01/02/17 20:20 - Constitutional Appears: Non-toxic, No Acute Distress - Head Exam Head Exam: ATRAUMATIC, NORMOCEPHALIC - Eye Exam Eye Exam: EOMI - ENT Exam ENT Exam: Mucous Membranes Moist - Neck Exam Neck Exam: Full ROM. absent: Lymphadenopathy, Thyromegaly - Respiratory Exam Respiratory Exam: Clear to Ausculation Bilateral, NORMAL BREATHING PATTERN. absent: Rales, Rhonchi, Wheezes - Cardiovascular Exam Cardiovascular Exam: REGULAR RHYTHM, +S1, +S2. absent: JVD - GI/Abdominal Exam GI & Abdominal Exam: Soft, Normal Bowel Sounds. absent: Tenderness - Extremities Exam Extremities Exam: Full ROM. absent: Joint Swelling, Pedal Edema, Tenderness - Back Exam Back Exam: NORMAL INSPECTION - Neurological Exam Neurological Exam: Alert, Awake, CN II-XII Intact, Normal Gait, Oriented x3 - Psychiatric Exam Psychiatric exam: Normal Affect, Normal Mood - Skin Skin Exam: Dry, Intact, Normal Color, Warm Assessment and Plan - Assessment and Plan (Free Text) Assessment: 31 y/o M with past medical history of ETOH abuse and seizures presents to ED s/ p seizure likely 2/2 to alcohol abuse. Plan: Alcohol Abuse/Withdrawal - resolving Precedex drip decreased Multi-Vit Thiamine Folic Acid Ativan 1mg PRN q6 Abdominal US - please see full report -fatty liver vs parenchymal disease Psych Consult - Dr. Mattson - help appreciated -pt. still having withdrawal symptoms in light of being on precedex and Ativan -pt. is agreeable to going to inpatient psych after being medically clear Septic Shock - resolved CBC- leukocytosis -resolved Blood culture - No Growth in 3 days Urine culture No Growth MRSA screen - not detected Aztreonam in the ED HIV negative Hep Panel negative ID Consult - Dr. Clarke, appreciate recs -Vancomycin and Rocephin stopped -Will follow Seizures resolved -not currently on seizure meds -Precedex was added overnight on 12/31 and put on hold 01/02 -Luba has been dc Neuro Consult - Dr. Ashok Ruffin, appreciate recs -Head CT - please see full report -No Acute findings, with evidence of chronic ischemic changes -MRI of brain showed no acute changes. -Showed 12 mm lesion at left basal ganglia possible old infarct vs encephalomalacia with blood product. -EEG - please see full report -no signs of seizure activity -Cont to jacob electrolytes and correct -Will sign off GI Bleed - no evidence of bleed Protonix drip octreotide drip GI Consult Dr. Rm, appreciate recs -No plan for EGD currently -advance diet as tolerated advanced diet to regular on 01/01 Electrolyte Imbalance - resolving Nephrology, Dr. Chirinos is consulted -Hypophosphatemia -Potassium phos IV -Hyponatremia- resolved -cont fluids, given desmopressin 2mcg to avoid rapid rise -goal of low 130's -Hypokalemia - Potassium phosphate -Hypocalcemia - replete as needed Rhadomyolysis - resolving will treat will aggressive fluids IV, Case discussed with attending, Dr. Louis <Nasra Louis - Last Filed: 01/03/17 15:22> Objective - Vital Signs/Intake and Output Vital Signs (last 24 hours): Temp Pulse Resp BP Pulse Ox 99.6 F 66 16 107/63 100 01/03/17 08:00 01/03/17 13:31 01/03/17 13:31 01/03/17 13:00 01/03/17 13:00 Intake and Output: 01/03/17 01/03/17 06:59 18:59 Intake Total 3500 Output Total 3550 Balance -50 - Medications Medications: Current Medications Chlordiazepoxide (Librium) 5 mg PO Q8 [facility] PRN Reason: Protocol Last Admin: 01/03/17 13:16 Dose: 5 mg Cholecalciferol (Vitamin D) 4,000 iu PO DAILY [facility] Last Admin: 01/03/17 09:17 Dose: 4,000 iu Folic Acid (Folic Acid) 1 mg PO DAILY [facility] Last Admin: 01/03/17 09:17 Dose: 1 mg Haloperidol (Haldol) 0.5 mg PO Q6 PRN; Protocol PRN Reason: Agitation Heparin Sodium (Porcine) (Heparin) 5,000 units SC Q12 [facility] PRN Reason: Protocol Last Admin: 01/03/17 09:19 Dose: 5,000 units Dexmedetomidine HCl (Precedex 4 Mcg/Ml (100 Ml)) 400 mcg in 100 mls @ 10.319 mls/hr IV .Q9H42M PRN; Protocol; 0.7 MCG/KG/HR PRN Reason: Agitation Last Titration: 01/02/17 08:49 Dose: 0 mcg/kg/hr, 0 mls/hr Sodium Chloride (Sodium Chloride 0.9%) 1,000 mls @ 250 mls/hr IV .Q4H [facility] Stop: 01/04/17 11:14 Last Admin: 01/03/17 06:46 Dose: 250 mls/hr Lorazepam (Ativan) 1 mg IVP Q6H PRN; Protocol PRN Reason: Anxiety Multivitamins/Minerals (Therapeutic-M Tab) 1 tab PO DAILY [facility] Last Admin: 01/03/17 09:20 Dose: 1 tab Ondansetron HCl (Zofran Inj) 4 mg IVP Q4H PRN PRN Reason: Nausea/Vomiting Last Admin: 01/02/17 15:11 Dose: 4 mg Pantoprazole Sodium (Protonix Inj) 40 mg IVP Q12 [facility] Last Admin: 01/03/17 09:19 Dose: 40 mg Thiamine HCl (Vitamin B1 Tab) 100 mg PO DAILY [facility] Last Admin: 01/03/17 09:17 Dose: 100 mg Thiamine HCl (Vitamin B1 Inj) 100 mg IV DAILY [facility] Last Admin: 12/31/16 11:07 Dose: 100 mg - Labs Labs: 01/03/17 05:20 01/03/17 05:20 PT 12.6 Seconds (9.9-11.8) H 12/29/16 07:14 INR 1.17 (0.93-1.08) H 12/29/16 07:14 APTT 23.5 Seconds (23.7-30.8) L 01/02/17 20:20 Attending/Attestation - Attestation I have personally seen and examined this patient.: Yes I have fully participated in the care of the patient.: Yes I have reviewed all pertinent clinical information, including history, physical exam and plan: Yes Notes (Text): 01/03/17 15:20 Attending note; Patient seen and examined with the resident. Patient is a 31 year old Sami speaking male with history of multiple seizures , alcohol abuse, who was brought in ED for evaluation of seizure, headache, dizziness and hematemesis. alcohol withdrawal symptoms resolved. Tolerating regular diet. rhabdomyolysis; due to seizure. Continue IV fluids. CPK is improving. Leukocytosis was most likely reactive. Elevated lactic acid post seizure due to alcohol withdrawal . Procal normal. CXR normal. Antibiotics stopped. CT head showed chronic ischemic changes. 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 EEG showed diffuse bilateral cerebral dysfunction and no seizure activity. Continue keppra. No further episodes of hematemesis. GI evaluation appreciated . There is no plan for EGD. Currently on regular diet. Continue Protonix. LFTs are elevated secondary to alcohol abuse and rhabdomyolysis. Monitor closely. Hep panel and HIV negative. Abdominal ultrasound showed fatty liver vs parenchymal disease. Complete alcohol cessation is strongly advised. weigh and charge worker evaluation requested to refer to AA rehabilitation. psychiatric evaluation appreciated. Possible discharge home tomorrow if clinically Stable. Patient will follow-up with [facility] clinic upon discharge.
--- NOTE | 2017-01-03 17:25 | PN ---
DATE: 01/03/2017 Shortly, patient is a 31-year-old male, long history of alcohol use disorder. The patient w as admitted to ICU unit for evaluation of alcohol withdrawal seizures and delirium tremens. The casey ent was seen and examined by Dr. Mattson over the weekend. The patient was willing to sign himself int o the psychiatric inpatient unit. The patient was followed up by this check writer salesperson today. The patient pre sented to be alert and oriented today. The patient denied being depressed, but reported to be upset with himself that he keeps drinking. The patient denied feeling of hopelessness or helplessness. Th e patient is willing to go for AA meetings, NA meetings. The patient denied hearing voices, denied s eeing things. The patient denied paranoid ideation. The patient does not present to be psychotic. The patient denied feeling anxious. Reported to feel good at present moment. The patient deemed to be improving. As per nursing staff and medical team, patient does not exhibit any aggressive or agit ated behavior. VITAL SIGNS: Much better. Pulse is 66, respirations 16. MEDICATIONS: Reviewed. The patient is on Librium 5 mg q. 8 hours scheduled, vitamin D, folic acid, haloperidol 0.5 mg q. 6 hours as needed for agitation. The patient did not get any haloperidol. Jazmine azepam 1 mg IV push q. 6 hours p.r.n., multivitamins p.o. daily, Zofran, Protonix, thiamine. LABORATORIES: Reviewed. Most recent was from today. Hemoglobin and hematocrit 11.6 and 33.4. Micr obiology reviewed. Reports reviewed from Dr. Louis, Dr. Clarke and nursing staff. MENTAL STATUS EXAMINATION: The patient is Persian speaking. This check writer salesperson utilized biomedical engineering aide f or translation. The patient presented to be alert and oriented, pleasant, cooperative. Fair eye con tact. Speech was normal rate, tone, quality, and quantity. Mood described "I feel better." Affect was reactive, mood congruent. Thought process was coherent, goal directed. Thought content: The pa tient denied visual, auditory, tactile hallucinations. Denied paranoid ideations. The patient denie d thoughts of harming himself or others, denied intent or plan. Insight and judgment are improving. Impulses well controlled. IMPRESSION: Delirium tremens is improving, alcohol use disorder, alcohol withdrawal symptoms which a re improving. The patient has multiple complications due to chronic alcohol consumption. Please see medical team notes for more detailed information. PLAN: Social work evaluation, AA meetings, NA meetings. The patient was offered naltrexone and it w as discussed with the medical team. The patient would benefit from inpatient rehab and patient's artur zhong is willing to assist him with that. The patient niece is next to the patient. As per patient's niece, patient was doing relatively well, but patient was drinking and this is big problem for the pa tient. The patient should continue on multivitamins, thiamine and folic acid. This check writer salesperson will sign off. Should you have any questions, give me a call back. Rina Brumfield MD cc: [id number] TT: 01/03/2017 17:24:28 Confirmation # [id number] Dictation # [id number]
[2017-01-04] MEDS: Sodium Chloride 0.9% 1,000 ML IV SCH ×2 (05:49→10:03)
[2017-01-04 06:01] LABS: ADD MANUAL DIFF? NO
[2017-01-04 06:21] LABS: BASO # 0.02 K/mm3 (0.0-2.0); BASO % 0.3 % (0.0-3.0); EOS # 0.2 (0.0-0.7); EOS % 2.3 % (1.5-5.0); GRAN # 2.75 (1.4-6.5); GRAN % 38.6 % (50.0-68.0); HEMATOCRIT 31.6 % (42.0-52.0); LYMPH # 3.2 (1.2-3.4); LYMPH % 45.3 % (22.0-35.0); MEAN CELL VOLUME 88.3 fL (80.0-105.0); MEAN CORPUSCULAR HEMOGLOBIN 30.4 pg (25.0-35.0); MEAN CORPUSCULAR HGB CONC 34.5 g/dl (31.0-37.0); MEAN PLATELET VOLUME 8.9 fl (7.0-11.0); MONO % 13.5 % (1.0-6.0); PLATELET COUNT 244 10^3/uL (120.0-450.0); RED CELL DISTRIBUTION WIDTH 14.8 % (11.5-14.5); WHITE BLOOD COUNT 7.1 10^3/ul (4.5-11.0)
[2017-01-04 06:24] LABS: ALB/GLOB RATIO 1.3 (1.1-1.8); ALKALINE PHOSPHATASE 61 U/L (38-133); ALT/SGPT 130 U/L (7-56); AST/SGOT 264 U/L (15-59); BILIRUBIN,TOTAL 0.6 mg/dL (0.2-1.3); CALCIUM 8.4 mg/dL (8.4-10.5); CARBON DIOXIDE 26 mmol/L (21-33); CHLORIDE 107 mmol/L (98-107); GFR AFRICAN-AMERICAN > 60; GLUCOSE,RANDOM 74 mg/dL (70-110); PHOSPHOROUS 3.3 mg/dL (2.5-4.5); POTASSIUM 4.6 mmol/L (3.6-5.0); SODIUM 137 mmol/L (132-148); TOTAL PROTEIN 6.4 g/dL (5.8-8.3)
[2017-01-04 06:51] LABS: BLOOD UREA NITROGEN < 2 mg/dL (7-21)
[2017-01-04] MEDS: Multivitamin With Minerals Tab PO SCH (09:02)
--- NOTE | 2017-01-04 17:09 | CP.PCM.DIS ---
<Serafin Tineo - Last Filed: 01/04/17 19:01> Provider - Provider Date of Admission: 12/29/16 07:32 Attending physician: Nasra Louis MD Time Spent in preparation of Discharge (in minutes): 35 Diagnosis - Discharge Diagnosis (1) Alcohol abuse Status: Acute (2) Alcohol withdrawal Status: Acute (3) Hypokalemia Status: Acute (4) Hyponatremia Status: Acute Hospital Course - Lab Results Lab Results: Micro Results 01/01/17 23:50 Stool C. difficile Antigen & Toxin A,B (M - Final 12/29/16 09:30 Nose MRSA Culture (Admit) - Final MRSA NOT DETECTED 12/29/16 08:02 Urine,Clean Catch Urine Culture - Final No Growth (<1,000 CFU/ML) Most Recent Lab Values WBC 7.1 10^3/ul (4.5-11.0) 01/04/17 05:30 RBC 3.58 10^6/uL (3.5-6.1) 01/04/17 05:30 Hgb 10.9 gm/dL (14.0-18.0) L 01/04/17 05:30 Hct 31.6 % (42.0-52.0) L 01/04/17 05:30 MCV 88.3 fL (80.0-105.0) 01/04/17 05:30 MCH 30.4 pg (25.0-35.0) 01/04/17 05:30 MCHC 34.5 g/dl (31.0-37.0) 01/04/17 05:30 RDW 14.8 % (11.5-14.5) H 01/04/17 05:30 Plt Count 244 10^3/uL (120.0-450.0) 01/04/17 05:30 MPV 8.9 fl (7.0-11.0) 01/04/17 05:30 Gran % 38.6 % (50.0-68.0) L 01/04/17 05:30 Lymph % (Auto) 45.3 % (22.0-35.0) H 01/04/17 05:30 Dickey % (Auto) 13.5 % (1.0-6.0) H 01/04/17 05:30 Eos % (Auto) 2.3 % (1.5-5.0) 01/04/17 05:30 Baso % (Auto) 0.3 % (0.0-3.0) 01/04/17 05:30 Gran # 2.75 (1.4-6.5) 01/04/17 05:30 Lymph # 3.2 (1.2-3.4) 01/04/17 05:30 Dickey # 1.0 (0.1-0.6) H 01/04/17 05:30 Eos # 0.2 (0.0-0.7) 01/04/17 05:30 Baso # 0.02 K/mm3 (0.0-2.0) 01/04/17 05:30 PT 12.6 Seconds (9.9-11.8) H 12/29/16 07:14 INR 1.17 (0.93-1.08) H 12/29/16 07:14 APTT 23.5 Seconds (23.7-30.8) L 01/02/17 20:20 pO2 33 mm/Hg (30-55) 12/30/16 00:45 VBG pH 7.36 (7.32-7.43) 12/30/16 00:45 VBG pCO2 40.0 (40-60) 12/30/16 00:45 VBG HCO3 22.6 mmol/l (21-28) 12/30/16 00:45 VBG Total CO2 23.8 mmol.L (22-28) 12/30/16 00:45 VBG O2 Sat (Calc) 67.4 % (40-65) H 12/30/16 00:45 VBG Base Excess -2.7 mmol/L (0.0-2.0) L 12/30/16 00:45 VBG Potassium 3.0 mmol/L (3.6-5.2) L 12/30/16 00:45 Sodium 125.0 mmol/L (132-148) L 12/30/16 00:45 Chloride 92.0 mmol/L (98-107) L 12/30/16 00:45 Glucose 152 mg/dl (75-110) H 12/30/16 00:45 Lactate 4.4 mmol/L (0.7-2.1) H* 12/30/16 00:45 FiO2 21.0 % 12/30/16 00:45 Sodium 137 mmol/L (132-148) 01/04/17 05:30 Potassium 4.6 mmol/L (3.6-5.0) 01/04/17 05:30 Chloride 107 mmol/L (98-107) 01/04/17 05:30 Carbon Dioxide 26 mmol/L (21-33) 01/04/17 05:30 Anion Gap 9 (10-20) L 01/04/17 05:30 BUN < 2 mg/dL (7-21) L 01/04/17 05:30 Creatinine 0.6 mg/dL (0.5-1.4) 01/04/17 05:30 Est GFR ( Amer) > 60 01/04/17 05:30 Est GFR (Non-Af Amer) > 60 01/04/17 05:30 POC Glucose (mg/dL) 90 mg/dL (65-110) 12/31/16 11:29 Random Glucose 74 mg/dL (70-110) 01/04/17 05:30 Serum Osmolality 240 mosm/kg (271-296) L 12/29/16 05:30 Lactic Acid 0.6 mmol/L (0.7-2.1) L 12/31/16 16:00 Uric Acid 14.5 mg/dL (3.5-8.5) H 12/29/16 05:30 Calcium 8.4 mg/dL (8.4-10.5) 01/04/17 05:30 Phosphorus 3.3 mg/dL (2.5-4.5) 01/04/17 05:30 Magnesium 2.0 mg/dL (1.7-2.2) 01/04/17 05:30 Iron 58 ug/dL (45-180) 01/03/17 05:20 TIBC 291 ug/dL (261-462) 01/03/17 05:20 % Saturation 20 % (20-55) 01/03/17 05:20 Ferritin 196.0 ng/mL 01/03/17 05:20 Total Bilirubin 0.6 mg/dL (0.2-1.3) 01/04/17 05:30 AST 264 U/L (15-59) H 01/04/17 05:30 ALT 130 U/L (7-56) H 01/04/17 05:30 Alkaline Phosphatase 61 U/L (38-133) 01/04/17 05:30 Total Creatine Kinase 06484 U/L (35-230) H 01/04/17 15:03 CK-MB (CK-2) 1.6 ng/mL (0.0-3.6) 01/04/17 15:03 CK-MB (CK-2) % Cancelled 01/03/17 05:20 NT-Pro-B Natriuret Pep 299 pg/mL (0-450) 12/29/16 05:30 Total Protein 6.4 g/dL (5.8-8.3) 01/04/17 05:30 Albumin 3.7 g/dL (3.0-4.8) 01/04/17 05:30 Globulin 2.8 gm/dL 01/04/17 05:30 Albumin/Globulin Ratio 1.3 (1.1-1.8) 01/04/17 05:30 Lipase 160 U/L (23-300) 01/01/17 13:50 25-OH Vitamin D Total < 12.8 NG/ML (30.0-100.0) L 01/01/17 05:30 Procalcitonin 0.16 NG/ML (0.19-0.49) L 12/29/16 05:30 TSH 3rd Generation 1.84 mIU/mL (0.46-4.68) 12/29/16 05:30 PTH Intact Whole Molec 153 pg/mL (14-64) H 12/31/16 12:20 Cortisol AM Sample 22.1 ug/dL (4.46-22.7) 12/29/16 05:30 Venous Blood Potassium 3.0 mmol/L (3.6-5.2) L 12/30/16 00:45 Urine Color Yellow (YELLOW) 12/29/16 08:02 Urine Appearance Sl cloudy (CLEAR) 12/29/16 08:02 Urine pH 6.0 (4.7-8.0) 12/29/16 08:02 Ur Specific Hendrum >= 1.030 (1.005-1.035) 12/29/16 08:02 Urine Protein 30 mg/dL (<30 mg/dL) H 12/29/16 08:02 Urine Glucose (UA) Negative mg/dL (NEGATIVE) 12/29/16 08:02 Urine Ketones Negative mg/dL (NEGATIVE) 12/29/16 08:02 Urine Blood Moderate (NEGATIVE) H 12/29/16 08:02 Urine Nitrate Negative (NEGATIVE) 12/29/16 08:02 Urine Bilirubin Negative (NEGATIVE) 12/29/16 08:02 Urine Urobilinogen 0.2 E.U./dL (<1 E.U./dL) 12/29/16 08:02 Ur Leukocyte Esterase Negative See/uL (NEGATIVE) 12/29/16 08:02 Urine RBC 2 - 5 /hpf (0-2) 12/29/16 08:02 Urine WBC 0 - 2 /hpf (0-6) 12/29/16 08:02 Ur Epithelial Cells 0 - 2 /hpf (0-5) 12/29/16 08:02 Urine Bacteria Few (NEG) 12/29/16 08:02 Urine Osmolality 266 mosm/kg (50-645) 01/01/17 14:00 Ur Random Sodium 108 meq/L 01/01/17 14:00 Urine Opiates Screen Negative (NEGATIVE) 12/29/16 08:02 Urine Methadone Screen Negative (NEGATIVE) 12/29/16 08:02 Ur Barbiturates Screen Negative (NEGATIVE) 12/29/16 08:02 Ur Phencyclidine Scrn Negative (NEGATIVE) 12/29/16 08:02 Ur Amphetamines Screen Negative (NEGATIVE) 12/29/16 08:02 U Benzodiazepines Scrn Negative (NEGATIVE) 12/29/16 08:02 U Oth Cocaine Metabols Negative (NEGATIVE) 12/29/16 08:02 U Cannabinoids Screen Negative (NEGATIVE) 12/29/16 08:02 Alcohol, Quantitative < 10 mg/dL (0-10) 12/29/16 05:30 Hepatitis A IgM Ab Negative (NEGATIVE) 12/29/16 05:30 Hep Bs Antigen Negative (NEGATIVE) 12/29/16 05:30 Hep B Core IgM Ab Negative (NEGATIVE) 12/29/16 05:30 Hepatitis C Antibody Negative (NEGATIVE) 12/29/16 05:30 HIV 1&2 Ag/Ab, 4th Gen Nonreactive (Nonreactive) 12/29/16 08:00 - Hospital Course Hospital Course: 31 year old Argentine speaking male with pmh of alcohol abuse and seizures was brought to the hospital for seizure episode 2/2 alcohol withdraw the night of admission. He was found to have low sodium, potassium, chloride, bicarb and calcium. He was also found to have elevated liver enzymes and a CPK of 100,849. He was transferred to the ICU for close observation. Neruo, Nephro, GI, ID, and Psych were all consulted. Head CT and MRI brain did not show any acute findings , EEG showed no signs of seizure activity. Nephro was following the pt. and replenishing electrolytes as needed. GI was consulted due to hematemesis, which was likely limited to the pt. biting his tongue. Pt. was tolerating regular diet during the latter part of his stay. ID was following, although the pt's cultures were all negative. Psych was consulted due to the pt. having withdrawal symptoms in light of being on precedex/ativan and for agitation. Pt. stabilized and medically stable to be discharged home. He was setup with [facility] and given forms to fill out, so that he could setup medical services at the [facility]. He was also given information about programs to help in the cessation of alcohol including AA. This is a brief account of his stay. For more information, please refer to his chart. - Date & Time of H&P Date of H&P: 01/04/17 Time of H&P: 15:30 Discharge Exam - Head Exam Head Exam: ATRAUMATIC, NORMOCEPHALIC - Eye Exam Eye Exam: EOMI, Normal appearance - ENT Exam ENT Exam: Mucous Membranes Moist - Neck Exam Neck exam: Full Rom - Respiratory Exam Respiratory Exam: Clear to PA & Lateral, NORMAL BREATHING PATTERN, UNREMARKABLE. absent: Rales, Rhonchi - Cardiovascular Exam Cardiovascular Exam: REGULAR RHYTHM, +S1, +S2. absent: JVD - GI/Abdominal Exam GI & Abdominal Exam: Normal Bowel Sounds, Soft, Unremarkable. absent: Tenderness - Extremities Exam Extremities exam: full ROM - Back Exam Back exam: FULL ROM. absent: CVA tenderness (L), CVA tenderness (R), rash noted , tenderness - Neurological Exam Neurological exam: Alert, CN II-XII Intact, Normal Gait, Oriented x3 - Psychiatric Exam Psychiatric exam: Normal Affect, Normal Mood - Skin Skin Exam: Dry, Intact, Normal Color, Warm Discharge Plan - Discharge Medications Prescriptions: chlordiazePOXIDE [Librium] 5 mg PO Q8 #6 cap Folic Acid 1 mg PO DAILY #10 tab Multimineral/Multivitamin [Therapeutic-M Tab] 1 tab PO DAILY #30 tab Pantoprazole [Protonix Inj] 40 mg PO DAILY #30 vial Thiamine [Vitamin B1 Tab] 100 mg PO DAILY #30 tab - Follow Up Plan Condition: SERIOUS Disposition: HOME/ ROUTINE Instructions: Hyponatremia (DC), Hypokalemia (DC), Abuse of Alcohol (DC), At- Risk Alcohol Use (DC) Additional Instructions: Patient is medically stable for discharge. Please follow up with your [facility] care paperwork to ensure you start care at [facility]. Please schedule a visit with the [facility] next week to setup new care. Please pick up driver your medications from the [facility] pharmacy. Please stop drinking alcohol, as this is detrimental to your health. Thank you for allowing us to take part in your care. <Nasra Louis - Last Filed: 01/05/17 17:35> Provider - Provider Date of Admission: 12/29/16 07:32 Attending physician: Nasra Louis MD Hospital Course - Lab Results Lab Results: Micro Results 01/01/17 23:50 Stool C. difficile Antigen & Toxin A,B (M - Final 12/29/16 09:30 Nose MRSA Culture (Admit) - Final MRSA NOT DETECTED 12/29/16 08:02 Urine,Clean Catch Urine Culture - Final No Growth (<1,000 CFU/ML) Most Recent Lab Values WBC 7.1 10^3/ul (4.5-11.0) 01/04/17 05:30 RBC 3.58 10^6/uL (3.5-6.1) 01/04/17 05:30 Hgb 10.9 gm/dL (14.0-18.0) L 01/04/17 05:30 Hct 31.6 % (42.0-52.0) L 01/04/17 05:30 MCV 88.3 fL (80.0-105.0) 01/04/17 05:30 MCH 30.4 pg (25.0-35.0) 01/04/17 05:30 MCHC 34.5 g/dl (31.0-37.0) 01/04/17 05:30 RDW 14.8 % (11.5-14.5) H 01/04/17 05:30 Plt Count 244 10^3/uL (120.0-450.0) 01/04/17 05:30 MPV 8.9 fl (7.0-11.0) 01/04/17 05:30 Gran % 38.6 % (50.0-68.0) L 01/04/17 05:30 Lymph % (Auto) 45.3 % (22.0-35.0) H 01/04/17 05:30 Dickey % (Auto) 13.5 % (1.0-6.0) H 01/04/17 05:30 Eos % (Auto) 2.3 % (1.5-5.0) 01/04/17 05:30 Baso % (Auto) 0.3 % (0.0-3.0) 01/04/17 05:30 Gran # 2.75 (1.4-6.5) 01/04/17 05:30 Lymph # 3.2 (1.2-3.4) 01/04/17 05:30 Dickey # 1.0 (0.1-0.6) H 01/04/17 05:30 Eos # 0.2 (0.0-0.7) 01/04/17 05:30 Baso # 0.02 K/mm3 (0.0-2.0) 01/04/17 05:30 PT 12.6 Seconds (9.9-11.8) H 12/29/16 07:14 INR 1.17 (0.93-1.08) H 12/29/16 07:14 APTT 23.5 Seconds (23.7-30.8) L 01/02/17 20:20 pO2 33 mm/Hg (30-55) 12/30/16 00:45 VBG pH 7.36 (7.32-7.43) 12/30/16 00:45 VBG pCO2 40.0 (40-60) 12/30/16 00:45 VBG HCO3 22.6 mmol/l (21-28) 12/30/16 00:45 VBG Total CO2 23.8 mmol.L (22-28) 12/30/16 00:45 VBG O2 Sat (Calc) 67.4 % (40-65) H 12/30/16 00:45 VBG Base Excess -2.7 mmol/L (0.0-2.0) L 12/30/16 00:45 VBG Potassium 3.0 mmol/L (3.6-5.2) L 12/30/16 00:45 Sodium 125.0 mmol/L (132-148) L 12/30/16 00:45 Chloride 92.0 mmol/L (98-107) L 12/30/16 00:45 Glucose 152 mg/dl (75-110) H 12/30/16 00:45 Lactate 4.4 mmol/L (0.7-2.1) H* 12/30/16 00:45 FiO2 21.0 % 12/30/16 00:45 Sodium 137 mmol/L (132-148) 01/04/17 05:30 Potassium 4.6 mmol/L (3.6-5.0) 01/04/17 05:30 Chloride 107 mmol/L (98-107) 01/04/17 05:30 Carbon Dioxide 26 mmol/L (21-33) 01/04/17 05:30 Anion Gap 9 (10-20) L 01/04/17 05:30 BUN < 2 mg/dL (7-21) L 01/04/17 05:30 Creatinine 0.6 mg/dL (0.5-1.4) 01/04/17 05:30 Est GFR ( Amer) > 60 01/04/17 05:30 Est GFR (Non-Af Amer) > 60 01/04/17 05:30 POC Glucose (mg/dL) 90 mg/dL (65-110) 12/31/16 11:29 Random Glucose 74 mg/dL (70-110) 01/04/17 05:30 Serum Osmolality 240 mosm/kg (271-296) L 12/29/16 05:30 Lactic Acid 0.6 mmol/L (0.7-2.1) L 12/31/16 16:00 Uric Acid 14.5 mg/dL (3.5-8.5) H 12/29/16 05:30 Calcium 8.4 mg/dL (8.4-10.5) 01/04/17 05:30 Phosphorus 3.3 mg/dL (2.5-4.5) 01/04/17 05:30 Magnesium 2.0 mg/dL (1.7-2.2) 01/04/17 05:30 Iron 58 ug/dL (45-180) 01/03/17 05:20 TIBC 291 ug/dL (261-462) 01/03/17 05:20 % Saturation 20 % (20-55) 01/03/17 05:20 Ferritin 196.0 ng/mL 01/03/17 05:20 Total Bilirubin 0.6 mg/dL (0.2-1.3) 01/04/17 05:30 AST 264 U/L (15-59) H 01/04/17 05:30 ALT 130 U/L (7-56) H 01/04/17 05:30 Alkaline Phosphatase 61 U/L (38-133) 01/04/17 05:30 Total Creatine Kinase 36913 U/L (35-230) H 01/04/17 15:03 CK-MB (CK-2) 1.6 ng/mL (0.0-3.6) 01/04/17 15:03 CK-MB (CK-2) % Cancelled 01/03/17 05:20 NT-Pro-B Natriuret Pep 299 pg/mL (0-450) 12/29/16 05:30 Total Protein 6.4 g/dL (5.8-8.3) 01/04/17 05:30 Albumin 3.7 g/dL (3.0-4.8) 01/04/17 05:30 Globulin 2.8 gm/dL 01/04/17 05:30 Albumin/Globulin Ratio 1.3 (1.1-1.8) 01/04/17 05:30 Lipase 160 U/L (23-300) 01/01/17 13:50 25-OH Vitamin D Total < 12.8 NG/ML (30.0-100.0) L 01/01/17 05:30 Procalcitonin 0.16 NG/ML (0.19-0.49) L 12/29/16 05:30 TSH 3rd Generation 1.84 mIU/mL (0.46-4.68) 12/29/16 05:30 PTH Intact Whole Molec 153 pg/mL (14-64) H 12/31/16 12:20 Cortisol AM Sample 22.1 ug/dL (4.46-22.7) 12/29/16 05:30 Venous Blood Potassium 3.0 mmol/L (3.6-5.2) L 12/30/16 00:45 Urine Color Yellow (YELLOW) 12/29/16 08:02 Urine Appearance Sl cloudy (CLEAR) 12/29/16 08:02 Urine pH 6.0 (4.7-8.0) 12/29/16 08:02 Ur Specific Hendrum >= 1.030 (1.005-1.035) 12/29/16 08:02 Urine Protein 30 mg/dL (<30 mg/dL) H 12/29/16 08:02 Urine Glucose (UA) Negative mg/dL (NEGATIVE) 12/29/16 08:02 Urine Ketones Negative mg/dL (NEGATIVE) 12/29/16 08:02 Urine Blood Moderate (NEGATIVE) H 12/29/16 08:02 Urine Nitrate Negative (NEGATIVE) 12/29/16 08:02 Urine Bilirubin Negative (NEGATIVE) 12/29/16 08:02 Urine Urobilinogen 0.2 E.U./dL (<1 E.U./dL) 12/29/16 08:02 Ur Leukocyte Esterase Negative See/uL (NEGATIVE) 12/29/16 08:02 Urine RBC 2 - 5 /hpf (0-2) 12/29/16 08:02 Urine WBC 0 - 2 /hpf (0-6) 12/29/16 08:02 Ur Epithelial Cells 0 - 2 /hpf (0-5) 12/29/16 08:02 Urine Bacteria Few (NEG) 12/29/16 08:02 Urine Osmolality 266 mosm/kg (50-645) 01/01/17 14:00 Ur Random Sodium 108 meq/L 01/01/17 14:00 Urine Opiates Screen Negative (NEGATIVE) 12/29/16 08:02 Urine Methadone Screen Negative (NEGATIVE) 12/29/16 08:02 Ur Barbiturates Screen Negative (NEGATIVE) 12/29/16 08:02 Ur Phencyclidine Scrn Negative (NEGATIVE) 12/29/16 08:02 Ur Amphetamines Screen Negative (NEGATIVE) 12/29/16 08:02 U Benzodiazepines Scrn Negative (NEGATIVE) 12/29/16 08:02 U Oth Cocaine Metabols Negative (NEGATIVE) 12/29/16 08:02 U Cannabinoids Screen Negative (NEGATIVE) 12/29/16 08:02 Alcohol, Quantitative < 10 mg/dL (0-10) 12/29/16 05:30 Hepatitis A IgM Ab Negative (NEGATIVE) 12/29/16 05:30 Hep Bs Antigen Negative (NEGATIVE) 12/29/16 05:30 Hep B Core IgM Ab Negative (NEGATIVE) 12/29/16 05:30 Hepatitis C Antibody Negative (NEGATIVE) 12/29/16 05:30 HIV 1&2 Ag/Ab, 4th Gen Nonreactive (Nonreactive) 12/29/16 08:00 Attending/Attestation - Attestation I have personally seen and examined this patient.: Yes I have fully participated in the care of the patient.: Yes I have reviewed all pertinent clinical information, including history, physical exam and plan: Yes Notes (Text): 01/05/17 17:21 Attending note; Patient seen and examined with the resident. Patient is a 31 year old Argentine speaking male with history of multiple seizures , alcohol abuse, who was brought in ED for evaluation of seizure, headache, dizziness and hematemesis. alcohol withdrawal symptoms resolved. Tolerating regular diet. rhabdomyolysis; due to seizure. Continue IV fluids. CPK is improved significantly. CT head showed chronic ischemic changes. 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 EEG showed diffuse bilateral cerebral dysfunction and no seizure activity. Continue keppra. No episodes of hematemesis. GI evaluation appreciated . Currently on regular diet. Continue Protonix. LFTs are elevated secondary to alcohol abuse and rhabdomyolysis. Improved. Hep panel and HIV negative. Abdominal ultrasound showed fatty liver vs parenchymal disease. Complete alcohol cessation is strongly advised. chamber worker evaluation requested to refer to AA rehabilitation. psychiatric evaluation appreciated. Advised to complete maggie Paperwork. chamber worker evaluation Appreciated. Information about AA meetings/ rehabilitation given. Patient will follow-[place] with [facility] [place]. diagnosis; Chronic alcohol abuse Rhabdomyolysis Gastritis Elevated LFTs
[2017-01-04 17:26] VITALS: BP 116/82; PULSE 76; RESP 18; TEMP 99.3; O2SAT 100
--- NOTE | 2017-01-04 18:42 | CP.PCM.PN ---
Subjective - Date & Time of Evaluation Date of Evaluation: 01/04/17 Time of Evaluation: 09:30 - Subjective Subjective: Comfortable, afebrile, not in distress. Objective - Vital Signs/Intake and Output Vital Signs (last 24 hours): Temp Pulse Resp BP Pulse Ox 99.3 F 76 18 116/82 100 01/04/17 16:00 01/04/17 16:00 01/04/17 16:00 01/04/17 16:00 01/04/17 16:00 Intake and Output: 01/04/17 01/04/17 06:59 18:59 Intake Total 3300 3255 Output Total 900 2660 Balance 2400 595 - Labs Labs: 01/04/17 05:30 01/04/17 05:30 PT 12.6 Seconds (9.9-11.8) H 12/29/16 07:14 INR 1.17 (0.93-1.08) H 12/29/16 07:14 APTT 23.5 Seconds (23.7-30.8) L 01/02/17 20:20 - Constitutional Appears: Non-toxic, No Acute Distress - Head Exam Head Exam: NORMAL INSPECTION - ENT Exam ENT Exam: Mucous Membranes Moist - Neck Exam Neck Exam: absent: Lymphadenopathy, Meningismus - Respiratory Exam Respiratory Exam: Decreased Breath Sounds - Cardiovascular Exam Cardiovascular Exam: +S1, +S2 - GI/Abdominal Exam GI & Abdominal Exam: Soft. absent: Tenderness Assessment and Plan - Assessment and Plan (Free Text) Plan: Assessment S/P Systemic Inflammatory Response Syndrome, probably reactive due to acute stressful event from seizure episode in a patient with hyponatremia and hypochloremia probably from dehydration; no evidence of sepsis identified alcohol abuse Plan blood and urine cx negative, PCT normal; reviewed CXR which is normal Will continue to monitor clinically off antibiotics since he is at risk for infection while the patient is in the hospital
--- NOTE | 2017-01-04 19:58 | CP.PCM.PN ---
Subjective - Date & Time of Evaluation Date of Evaluation: 01/04/17 Time of Evaluation: 11:00 - Subjective Subjective: Patient feeling well, tolerating diet, urinating well; Objective - Vital Signs/Intake and Output Vital Signs (last 24 hours): Temp Pulse Resp BP Pulse Ox 99.3 F 76 18 116/82 100 01/04/17 16:00 01/04/17 16:00 01/04/17 16:00 01/04/17 16:00 01/04/17 16:00 Intake and Output: 01/04/17 01/05/17 18:59 06:59 Intake Total 3255 Output Total 2660 Balance 595 - Labs Labs: 01/04/17 05:30 01/04/17 05:30 PT 12.6 Seconds (9.9-11.8) H 12/29/16 07:14 INR 1.17 (0.93-1.08) H 12/29/16 07:14 APTT 23.5 Seconds (23.7-30.8) L 01/02/17 20:20 - Constitutional Appears: Well, No Acute Distress - Head Exam Head Exam: NORMAL INSPECTION - Eye Exam Eye Exam: Normal appearance. absent: Scleral icterus - ENT Exam ENT Exam: Mucous Membranes Moist - Respiratory Exam Respiratory Exam: Clear to Ausculation Bilateral, NORMAL BREATHING PATTERN - Cardiovascular Exam Cardiovascular Exam: REGULAR RHYTHM, +S1, +S2 - GI/Abdominal Exam GI & Abdominal Exam: Soft. absent: Distended, Tenderness - Extremities Exam Extremities Exam: Normal Capillary Refill Additional comments: No leg edema; - Neurological Exam Neurological Exam: Alert, Awake - Psychiatric Exam Psychiatric exam: Normal Affect, Normal Mood - Skin Skin Exam: Normal Color, Warm. absent: Cyanosis Assessment and Plan (1) Hyponatremia Assessment & Plan: Resolved, secondary to volume depletion with only PO intake being ETOH; patient counseled on dangers of ETOH abuse; Status: Acute (2) Rhabdomyolysis Assessment & Plan: Resolving; patient being discharged today as CK levels decreasing steadily and to a safe range; patient advised to increase PO water and salt intake for the next few days; Status: Acute (3) Alcohol withdrawal Assessment & Plan: Resolved; Status: Acute (4) Hypokalemia Assessment & Plan: Resolved; Status: Acute
== END 2017-01-04 18:35 | disposition home or self-care (01) | DRG 560 ==
LOC: ED 04:46 → ERH 07:32 → CCU 08:54 → 5RSO 01-04 11:10
PROVIDERS: ADMIT Internal Medicine; ATTEND Internal Medicine
DX: M62.82 Rhabdomyolysis (principal); R65.10 Systemic inflammatory response syndrome (SIRS) of non-infectious origin without acute organ dysfunction; E87.1 Hypo-osmolality and hyponatremia; F10.231 Alcohol dependence with withdrawal delirium; E87.4 Mixed disorder of acid-base balance; K92.0 Hematemesis; R56.9 Unspecified convulsions; E87.6 Hypokalemia; E86.0 Dehydration; G93.41 Metabolic encephalopathy; R79.89 Other specified abnormal findings of blood chemistry; F17.210 Nicotine dependence, cigarettes, uncomplicated; K29.20 Alcoholic gastritis without bleeding; F41.9 Anxiety disorder, unspecified; E83.39 Other disorders of phosphorus metabolism; E83.41 Hypermagnesemia; K70.0 Alcoholic fatty liver; Y90.0 Blood alcohol level of less than 20 mg/100 ml; E83.51 Hypocalcemia; D50.9 Iron deficiency anemia, unspecified; Z78.1 Physical restraint status